=== PATIENT | male | born 1985 | race Caucasian/White ===

== ENCOUNTER 2018-03-20 19:35 | Emergency (ER) | payer MEDICARE ==
[~2018-03-20] VITALS: Ht 172.7 cm; Wt 90.7 kg
[~2018-03-20 19:35] MED LIST: ALBU90OI INH; BENZ100A PO; PRODEXEL PO; Vitamin C100 M1; Zithromax250 MG PO
[2018-03-20 20:57] LABS: BASOPHILS ABSOLUTE AUTO 0.04 K/mm3 (0.00-0.23); BASOPHILS PERCENT AUTO 1 % (0-2); EOSINOPHILS ABSOLUTE AUTO 0.54 K/mm3 (0.00-0.68); EOSINOPHILS PERCENT AUTO 8 % (0-6); Hematocrit 47.5 % (37.0-53.0); Hemoglobin 16.4 g/dL (13.5-17.5); IMMATURE GRAN ABSOLUTE AUTO 0.02 K/mm3 (0.00-0.10); IMMATURE GRAN PERCENT AUTO 0 % (0-1); LYMPHOCYTES PERCENT AUTO 31 % (21-46); MONOCYTES ABSOLUTE AUTO 0.57 K/mm3 (0.16-1.47); MONOCYTES PERCENT AUTO 8 % (4-13); Mean Corpuscular HGB 28.5 pg (26.0-34.0); Mean Corpuscular HGB Conc 34.5 g/dL (31.5-36.5); Mean Corpuscular Volume 83 fL (80-100); Mean Platelet Volume 9.2 fL (9.1-12.4); NEUTROPHILS PERCENT AUTO 53 % (41-73); Platelet Count 235 K/mm3 (150-400); RDW Standard Deviation 36.3 fL (35.1-46.3); Red Blood Cell Count 5.76 M/mm3 (4.30-5.90); White Blood Cell Count 7.17 K/mm3 (4.00-11.30)
[2018-03-20 21:16] LABS: Alanine Aminotransfer (ALT/SGP 107 U/L (12-78); Albumin, Blood 4.2 g/dL (3.4-5.0); Albumin/Globulin Ratio 1.1 (0.8-1.8); Alk Phos 82 U/L (50-136); Anion Gap 8 mmol/L (6-16); Aspartate Aminotrans (AST/SGOT 57 U/L (12-37); Bilirubin, Total 0.8 mg/dL (0.1-1.0); Blood Urea Nitrogen 13 mg/dL (8-24); Bun/Creatinine Ratio 12.1 (12.0-20.0); CO2, Blood 25 mmol/L (21-32); Calcium, Blood 9.5 mg/dL (8.5-10.1); Chloride, Blood 109 mmol/L (98-108); Creatinine, Blood 1.07 mg/dL (0.60-1.20); Globulin, Blood 3.8 g/dL (2.2-4.0); Glomerular Filtration Rate >60 (60-); Glucose, Blood 91 mg/dL (70-99); Potassium, Blood 3.9 mmol/L (3.5-5.5); Sodium, Blood 142 mmol/L (136-145)
[2018-03-20] MEDS ORDERED: IBUP400 PO (21:49)
== END 2018-03-20 22:04 | disposition home or self-care (01) ==
LOC: ER 19:35
PROVIDERS: Emergency Medicine
DX: R10.31 Right lower quadrant pain (principal); R10.32 Left lower quadrant pain; R07.81 Pleurodynia
CPT/HCPCS: 36415; 74176; 80053; 81000; 85025

== ENCOUNTER 2018-12-23 12:58 | Emergency (ER) | payer MEDICARE ==
[~2018-12-23] VITALS: Ht 175.3 cm; Wt 90.7 kg
[~2018-12-23 12:58] MED LIST changes: +IBUP400 PO
[2018-12-23] MEDS ORDERED: IBUP400 PO (13:30)
[2018-12-23] MEDS ORDERED: Aerochamber1 EACH INH (14:14)
[2018-12-23] MEDS ORDERED: ALBU90OI INH (14:14)
== END 2018-12-23 14:18 | disposition home or self-care (01) ==
LOC: ER 12:58
DX: J06.9 Acute upper respiratory infection, unspecified (principal)
CPT/HCPCS: 71046; 94640; 99283-25

== ENCOUNTER 2019-06-12 01:02 | Emergency (ER) | payer MEDICARE ==
[~2019-06-12] VITALS: Ht 172.7 cm; Wt 90.7 kg
[~2019-06-12 01:02] MED LIST changes: +Aerochamber1 EACH INH
== END 2019-06-12 01:59 | disposition home or self-care (01) ==
LOC: ER 01:02
DX: K59.00 Constipation, unspecified (principal); R14.0 Abdominal distension (gaseous)
CPT/HCPCS: 74019; 99284-25

== ENCOUNTER 2020-01-25 17:51 | Emergency (ER) | payer MEDICARE ==
[~2020-01-25] VITALS: Ht 172.7 cm; Wt 90.7 kg
[~2020-01-25 17:51] MED LIST changes: +GUAI600T33 PO
== END 2020-01-25 19:10 | disposition home or self-care (01) ==
LOC: ER 17:51
DX: R10.32 Left lower quadrant pain (principal); F32.9 Major depressive disorder, single episode, unspecified
CPT/HCPCS: 74018; 99283-25

== ENCOUNTER 2020-01-26 19:33 | Inpatient (IN) | payer MEDICARE ==
[~2020-01-26] VITALS: Ht 172.7 cm; Wt 90.7 kg
[2020-01-26 21:39] LABS: BASOPHILS ABSOLUTE AUTO 0.03 K/mm3 (0.00-0.23); BASOPHILS PERCENT AUTO 0 % (0-2); EOSINOPHILS ABSOLUTE AUTO 0.07 K/mm3 (0.00-0.68); EOSINOPHILS PERCENT AUTO 1 % (0-6); Hematocrit 47.9 % (37.0-53.0); Hemoglobin 15.4 g/dL (13.5-17.5); IMMATURE GRAN ABSOLUTE AUTO 0.02 K/mm3 (0.00-0.10); IMMATURE GRAN PERCENT AUTO 0 % (0-1); LYMPHOCYTES ABSOLUTE AUTO 1.62 K/mm3 (0.84-5.20); LYMPHOCYTES PERCENT AUTO 16 % (21-46); MONOCYTES ABSOLUTE AUTO 0.81 K/mm3 (0.16-1.47); MONOCYTES PERCENT AUTO 8 % (4-13); Mean Corpuscular HGB 25.4 pg (26.0-34.0); Mean Corpuscular HGB Conc 32.2 g/dL (31.5-36.5); Mean Corpuscular Volume 79 fL (80-100); Mean Platelet Volume 9.4 fL (9.1-12.4); NEUTROPHILS ABSOLUTE AUTO 7.74 K/mm3 (1.96-9.15); NEUTROPHILS PERCENT AUTO 75 % (41-73); Platelet Count 319 K/mm3 (150-400); RDW Coefficient Variation 14.5 % (11.7-14.2); RDW Standard Deviation 41.4 fL (35.1-46.3); Red Blood Cell Count 6.07 M/mm3 (4.30-5.90); White Blood Cell Count 10.29 K/mm3 (4.00-11.30)
[2020-01-26 21:57] LABS: Alanine Aminotransfer (ALT/SGP 43 U/L (12-78); Albumin, Blood 3.8 g/dL (3.4-5.0); Albumin/Globulin Ratio 0.9 (0.8-1.8); Alk Phos 87 U/L (50-136); Anion Gap 5 mmol/L (6-16); Aspartate Aminotrans (AST/SGOT 29 U/L (12-37); Bilirubin, Total 1.4 mg/dL (0.1-1.0); Blood Urea Nitrogen 10 mg/dL (8-24); Bun/Creatinine Ratio 8.7 (12.0-20.0); CO2, Blood 28 mmol/L (21-32); Calcium, Blood 9.5 mg/dL (8.5-10.1); Chloride, Blood 106 mmol/L (98-108); Creatinine, Blood 1.15 mg/dL (0.60-1.20); Globulin, Blood 4.2 g/dL (2.2-4.0); Glomerular Filtration Rate >60 (60-); Glucose, Blood 99 mg/dL (70-99); Magnesium, Blood 2.2 mg/dL (1.6-2.4); Sodium, Blood 139 mmol/L (136-145)
--- NOTE | 2020-01-27 04:28 | NUR ---
SHIFT SUMMARY PT WAS NEW ER ADMIT THIS SHIFT (0040), MEDICATED FOR PAIN X1, DENIES NAUSEA, PT SLEPT T/O NIGHT & AT THIS TIME, CALL LIGHT IN REACH, WILL CONT TO MONITOR UNTIL REPORT GIVEN TO DAY RN.
[2020-01-27 04:45] LABS: BASOPHILS ABSOLUTE AUTO 0.03 K/mm3 (0.00-0.23); BASOPHILS PERCENT AUTO 0 % (0-2); EOSINOPHILS ABSOLUTE AUTO 0.04 K/mm3 (0.00-0.68); EOSINOPHILS PERCENT AUTO 0 % (0-6); Hematocrit 42.9 % (37.0-53.0); Hemoglobin 13.8 g/dL (13.5-17.5); IMMATURE GRAN ABSOLUTE AUTO 0.03 K/mm3 (0.00-0.10); IMMATURE GRAN PERCENT AUTO 0 % (0-1); LYMPHOCYTES ABSOLUTE AUTO 1.59 K/mm3 (0.84-5.20); LYMPHOCYTES PERCENT AUTO 17 % (21-46); MONOCYTES ABSOLUTE AUTO 0.79 K/mm3 (0.16-1.47); MONOCYTES PERCENT AUTO 8 % (4-13); Mean Corpuscular HGB 25.2 pg (26.0-34.0); Mean Corpuscular HGB Conc 32.2 g/dL (31.5-36.5); Mean Corpuscular Volume 78 fL (80-100); Mean Platelet Volume 9.2 fL (9.1-12.4); NEUTROPHILS ABSOLUTE AUTO 7.07 K/mm3 (1.96-9.15); NEUTROPHILS PERCENT AUTO 74 % (41-73); Platelet Count 276 K/mm3 (150-400); RDW Coefficient Variation 14.3 % (11.7-14.2); RDW Standard Deviation 41.2 fL (35.1-46.3); Red Blood Cell Count 5.47 M/mm3 (4.30-5.90); White Blood Cell Count 9.55 K/mm3 (4.00-11.30)
[2020-01-27 05:08] LABS: Alanine Aminotransfer (ALT/SGP 34 U/L (12-78); Albumin, Blood 3.2 g/dL (3.4-5.0); Albumin/Globulin Ratio 0.9 (0.8-1.8); Alk Phos 72 U/L (50-136); Anion Gap 6 mmol/L (6-16); Aspartate Aminotrans (AST/SGOT 20 U/L (12-37); Bilirubin, Total 1.1 mg/dL (0.1-1.0); Blood Urea Nitrogen 11 mg/dL (8-24); Bun/Creatinine Ratio 11.9 (12.0-20.0); CO2, Blood 24 mmol/L (21-32); Calcium, Blood 8.3 mg/dL (8.5-10.1); Chloride, Blood 108 mmol/L (98-108); Creatinine, Blood 0.92 mg/dL (0.60-1.20); Globulin, Blood 3.5 g/dL (2.2-4.0); Glomerular Filtration Rate >60 (60-); Glucose, Blood 128 mg/dL (70-99); Potassium, Blood 3.6 mmol/L (3.5-5.5); Sodium, Blood 138 mmol/L (136-145); Total Protein, Blood 6.7 g/dL (6.4-8.2)
--- NOTE | 2020-01-27 14:13 | NUR ---
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 3-LEAD EKG REVIEWED WITH PHYSICIAN PRIOR TO START OF PROCEDURE. O2 VIA N/C INTACT THROUGHOUT SEDATION/PROCEDURE. MONITOR INTACT WITH CONTINUOUS PULSE OXIMETRY AND INTERMITTENT BP. PATIENT DETERMINED TO BE ASA APPROPRIATE FOR PROPOFOL SEDATION PRIOR TO START OF PROCEDURE BY DR. GARCIA.
--- NOTE | 2020-01-27 15:47 | NUR ---
SHIFT SUMMARY PT IS A/O X 4 AND IND IN HIS ROOM. HE REPORTS OCCASIONAL ABDOMINAL PAIN. TYLENOL WAS GIVEN ORDERED DR GARCIA WANTED TO HOLD OFF ON NARCS FOR POSSIBLE CONSTIPATION ISSUES. IV FLUIDS HAVE BEEN RUNNING ORDERED WITH NO ISSUE. DR GARCIA TOOK THE PT FOR A COLONSCOPY THIS AFTERNOON AND PER REPORT FROM THE DAY SURGERY RN THEY WERE UNABLE TO MAKE ANY REPAIRS. DR MALHOTRA JUST SAW THE PT AT THE BEDSIDE TO DISCUSS THE POSSIBILITY OF SURGERY TO REMOVE THE CAUSE OF THE ABDOMINAL PAIN AND THE PT STATED THAT HE WOULD LIKE TO GO AHEAD WITH THE SURGERY. DR MALHOTRA STATED THAT HE WOULD MOST LIKELY OPERATE THIS TEREZA. PT IS RESTING IN BED AND REMAINS NPO. HE CAN MAKE HIS NEEDS KNOWN AND CALLS FOR HELP WHEN NEEDED. CALL LIGHT IN REACH.
--- NOTE | 2020-01-27 22:05 | NUR ---
PT TO ICU 16 VIA BED FOR POST OP RECOVERY, PT SLIGHTLY COMBATIVE UPON ARRIVAL, ONCE MORE ALERT FOLLOWS COMMANDS WELL PT C/O PAIN 8 IN ABDOMEN MEDICATED WITH FENTANYL VSS WILL CONTINUE TO MONITOR
--- NOTE | 2020-01-27 22:10 | NUR ---
PT WITH CANNON CATHETER INTACT DRAINING CLEAR YELLOW URINE ABDOMINAL ALEXA DRESSING WITH SEVERAL SMALL SPOTS OF BLOOD OSTEOMY DRAINING BLOODY BOWEL CONTENTS
--- NOTE | 2020-01-27 23:55 | NUR ---
Patient arrived from the ICU post recovery. patient awake and complaining of mild discomfort related to the ng tube. lungs are clear, afebrile. ALEXA dressing to midline incision, dressing is compressed with the pump attached. Dressing with spots of blood over the dressing. colostomy with blood drainage from the lt side, reseated the two seals and the drainage is solved. scant amount of blood drainage into collection bag. hayes cath with clear yellow drainage in the bag, and dried blood around the meatus. SCDs on. mouth is moist but patient C/O pain in his throat and dry spots. NG with green drainage, call to MD to clarify NG clamped vs LIS. call light in reach, will continue to monitor.
--- NOTE | 2020-01-28 04:56 | NUR ---
Shift Summary Patient comtinues to have issues with the NG tube at the back of his throat. using oral swabs to moisten mouth T/O shift. patient has been medicated with fentanyl with good results. Temp at 0400 99.3, instructed patient to do deep breathing exercises. No other acute changes. will continue to monitor, call light in reach bed in low position.
[2020-01-28 10:31] LABS: BASOPHILS ABSOLUTE AUTO 0.02 K/mm3 (0.00-0.23); BASOPHILS PERCENT AUTO 0 % (0-2); EOSINOPHILS PERCENT AUTO 0 % (0-6); Hematocrit 43.2 % (37.0-53.0); IMMATURE GRAN ABSOLUTE AUTO 0.03 K/mm3 (0.00-0.10); IMMATURE GRAN PERCENT AUTO 0 % (0-1); LYMPHOCYTES ABSOLUTE AUTO 1.04 K/mm3 (0.84-5.20); LYMPHOCYTES PERCENT AUTO 9 % (21-46); MONOCYTES ABSOLUTE AUTO 1.19 K/mm3 (0.16-1.47); MONOCYTES PERCENT AUTO 11 % (4-13); Mean Corpuscular HGB 25.4 pg (26.0-34.0); Mean Corpuscular HGB Conc 32.4 g/dL (31.5-36.5); Mean Corpuscular Volume 78 fL (80-100); Mean Platelet Volume 9.4 fL (9.1-12.4); NEUTROPHILS ABSOLUTE AUTO 8.75 K/mm3 (1.96-9.15); NEUTROPHILS PERCENT AUTO 79 % (41-73); Platelet Count 299 K/mm3 (150-400); RDW Coefficient Variation 14.7 % (11.7-14.2); RDW Standard Deviation 41.4 fL (35.1-46.3); Red Blood Cell Count 5.52 M/mm3 (4.30-5.90); White Blood Cell Count 11.03 K/mm3 (4.00-11.30)
--- NOTE | 2020-01-28 17:43 | NUR ---
SHIFT SUMMARY PT A&OX4, VSS, POD1 EXP LAP HEMICOLECTOMY WITH MIDLINE ALEXA AND OSTOMY W/SMALL AMT RED OUTPUT, NO FLATUS. PAIN MANAGED WITH 5 MG NORCO. AMBULATING HALLWAY WITH MIN ASSIST; UP TO CHAIR. CANNON PATENT & DRAINING, STAT LOCK ON LLE, OFF FLOOR. JUDAH CL DIET; DENIES N&V, REP BELCHING. WILL REPORT TO ONCOMING NOC RN.
[2020-01-29 04:32] LABS: Hematocrit 46.3 % (37.0-53.0); Hemoglobin 14.9 g/dL (13.5-17.5); Mean Corpuscular HGB 25.3 pg (26.0-34.0); Mean Corpuscular HGB Conc 32.2 g/dL (31.5-36.5); Mean Corpuscular Volume 79 fL (80-100); Mean Platelet Volume 9.6 fL (9.1-12.4); Platelet Count 285 K/mm3 (150-400); RDW Coefficient Variation 14.9 % (11.7-14.2); RDW Standard Deviation 42.3 fL (35.1-46.3); Red Blood Cell Count 5.89 M/mm3 (4.30-5.90); White Blood Cell Count 12.78 K/mm3 (4.00-11.30)
[2020-01-29 04:48] LABS: Albumin, Blood 2.6 g/dL (3.4-5.0); Anion Gap 6 mmol/L (6-16); Blood Urea Nitrogen 8 mg/dL (8-24); Bun/Creatinine Ratio 8.1 (12.0-20.0); CO2, Blood 26 mmol/L (21-32); Calcium, Blood 8.4 mg/dL (8.5-10.1); Chloride, Blood 103 mmol/L (98-108); Creatinine, Blood 0.99 mg/dL (0.60-1.20); Glomerular Filtration Rate >60 (60-); Glucose, Blood 121 mg/dL (70-99); Phosphorus, Blood 2.4 mg/dL (2.5-4.9); Potassium, Blood 4.1 mmol/L (3.5-5.5); Sodium, Blood 135 mmol/L (136-145)
--- NOTE | 2020-01-29 05:54 | NUR ---
SHIFT SUMMARY POD#2 KENA COLECTOMY WITH OSTOMY. AAOX4. DISCOMFORT DECREASED WITH 1 NORCO Q4H + 25mcg FENTANYL X3 THIS SHIFT. NAUSEA CONTROLLED WITH ZOFRAN, NO EMESIS. IVF PER ORDERS. ABD DISTENDED + HYPOACTIVE BTs. SCANT SS DRAINAGE IN OSTOMY BAG, NO INCREASE THIS SHIFT. ENCOURAGE PT TO REPOSITION + AMBULATE TODAY TOLERATED. NO ACUTE CHANGE THIS SHIFT. PT RESTED MINIMALLY T/O NIGHT, CURRENTLY SITTING UP IN BED WITH EYES CLOSED. PT USES CALL LIGHT FOR ASSISTANCE.
--- NOTE | 2020-01-29 09:16 | NUR ---
HR DISCUSSED HR W/DR BAZAN.
--- NOTE | 2020-01-29 10:33 | NUR ---
RASH PT HAS RED SPLOTCHY RASH TO BLE.
--- NOTE | 2020-01-29 11:29 | NUR ---
DR BAZAN IN TO SEE PT REPORTED RASH TO , SHE ASSESSED. PT AMBULATED IN DAUGHERTY. ABDOMEN CONTINUES TO BE DISTENDED, BT HYPO. HELD BREAKFAST TRAY, WILL HOLD LUNCH TRAY.
--- NOTE | 2020-01-29 13:16 | NUR ---
HR PT'S HR 144. PT REPORTED EXPERIENCING VERY LITTLE ABDOMINAL PAIN AT THIS TIME. NOTIFIED DR BAZAN. ORDERS OBTAINED.
--- NOTE | 2020-01-29 16:30 | NUR ---
HR PT'S HR 133. DISCUSSED W/DR BAZAN. ORDERS OBTAINED.
[2020-01-29 16:40] LABS: BASOPHILS ABSOLUTE AUTO 0.04 K/mm3 (0.00-0.23); BASOPHILS PERCENT AUTO 0 % (0-2); EOSINOPHILS ABSOLUTE AUTO 0.08 K/mm3 (0.00-0.68); EOSINOPHILS PERCENT AUTO 1 % (0-6); Hematocrit 47.5 % (37.0-53.0); Hemoglobin 15.4 g/dL (13.5-17.5); IMMATURE GRAN ABSOLUTE AUTO 0.07 K/mm3 (0.00-0.10); IMMATURE GRAN PERCENT AUTO 1 % (0-1); LYMPHOCYTES ABSOLUTE AUTO 1.53 K/mm3 (0.84-5.20); LYMPHOCYTES PERCENT AUTO 12 % (21-46); MONOCYTES ABSOLUTE AUTO 1.57 K/mm3 (0.16-1.47); MONOCYTES PERCENT AUTO 12 % (4-13); Mean Corpuscular HGB 25.2 pg (26.0-34.0); Mean Corpuscular HGB Conc 32.4 g/dL (31.5-36.5); Mean Corpuscular Volume 78 fL (80-100); Mean Platelet Volume 9.3 fL (9.1-12.4); NEUTROPHILS ABSOLUTE AUTO 9.65 K/mm3 (1.96-9.15); NEUTROPHILS PERCENT AUTO 75 % (41-73); Platelet Count 326 K/mm3 (150-400); RDW Coefficient Variation 14.9 % (11.7-14.2); RDW Standard Deviation 41.4 fL (35.1-46.3); Red Blood Cell Count 6.11 M/mm3 (4.30-5.90); White Blood Cell Count 12.94 K/mm3 (4.00-11.30)
--- NOTE | 2020-01-29 18:05 | NUR ---
SUMMARY PT HAS BEEN TACHY T/O SHIFT. DISCUSSED W/DR BAZAN T/O DAY; ORDERS OBTAINED. TELE SHOWS SINUS TACH. PT HAD NO MEASURABLE OUTPUT OR FLATUS FROM OSTOMY. HELD MEAL TRAYS. SIPPING WATER SLOWLY. MEDICATED PER ORDERS FOR NAUSEA. MEDICATED ONCE THIS EVENING FOR RLQ PAIN. PT SAT UP IN CHAIR MOST OF SHIFT AND AMBULATED THREE TIMES W/STAFF. KASSANDRA LOPEZ DC'D THIS AFTERNOON; PT HAS NOT VOIDED YET SINCE DC. CALL LIGHT IN REACH.
--- NOTE | 2020-01-29 18:34 | NUR ---
assisted back to bed.
--- NOTE | 2020-01-30 03:30 | NUR ---
VTACH: PER TELE MONITOR PT HAD A 4 BEAT RUN OF VTACH. PT REP COUGHING AT TIME OF TELE NOTIFICATION. PT ASYMPTOMATIC, VITALS TAKEN, WNL. WILL CONT TO MONITOR AND NOTIFY MD FOR ADDITIONAL CHANGED/CONCERNS.
[2020-01-30 04:46] LABS: BASOPHILS ABSOLUTE AUTO 0.05 K/mm3 (0.00-0.23); BASOPHILS PERCENT AUTO 0 % (0-2); EOSINOPHILS ABSOLUTE AUTO 0.18 K/mm3 (0.00-0.68); EOSINOPHILS PERCENT AUTO 2 % (0-6); Hematocrit 45.1 % (37.0-53.0); Hemoglobin 14.6 g/dL (13.5-17.5); IMMATURE GRAN ABSOLUTE AUTO 0.07 K/mm3 (0.00-0.10); IMMATURE GRAN PERCENT AUTO 1 % (0-1); LYMPHOCYTES ABSOLUTE AUTO 1.31 K/mm3 (0.84-5.20); LYMPHOCYTES PERCENT AUTO 12 % (21-46); MONOCYTES ABSOLUTE AUTO 1.16 K/mm3 (0.16-1.47); MONOCYTES PERCENT AUTO 10 % (4-13); Mean Corpuscular HGB 25.4 pg (26.0-34.0); Mean Corpuscular HGB Conc 32.4 g/dL (31.5-36.5); Mean Corpuscular Volume 78 fL (80-100); Mean Platelet Volume 9.6 fL (9.1-12.4); NEUTROPHILS ABSOLUTE AUTO 8.57 K/mm3 (1.96-9.15); NEUTROPHILS PERCENT AUTO 76 % (41-73); Platelet Count 315 K/mm3 (150-400); RDW Coefficient Variation 15.2 % (11.7-14.2); Red Blood Cell Count 5.75 M/mm3 (4.30-5.90); White Blood Cell Count 11.34 K/mm3 (4.00-11.30)
[2020-01-30 05:01] LABS: Albumin, Blood 2.3 g/dL (3.4-5.0); Anion Gap 7 mmol/L (6-16); Blood Urea Nitrogen 11 mg/dL (8-24); Bun/Creatinine Ratio 11.3 (12.0-20.0); CO2, Blood 24 mmol/L (21-32); Calcium, Blood 8.1 mg/dL (8.5-10.1); Chloride, Blood 104 mmol/L (98-108); Creatinine, Blood 0.98 mg/dL (0.60-1.20); Glomerular Filtration Rate >60 (60-); Glucose, Blood 114 mg/dL (70-99); Phosphorus, Blood 2.5 mg/dL (2.5-4.9); Potassium, Blood 4.2 mmol/L (3.5-5.5); Sodium, Blood 135 mmol/L (136-145)
--- NOTE | 2020-01-30 06:35 | NUR ---
POD 3 S/P KENA COLECTOMY+OSTOMY. HR CONT TO RUN 120-130'S, PT DENIED CP/PRESSURE. PT DID HAVE A 4 BEAT RUN OF VTACH PER TELE; PT ASYMPTOMATIC DURING EVENT. OTHER VSS. PT DENIED NEED FOR PAIN MEDS. REP REFULX IMPROVED AFTER GI COCKTAIL. PT HAD NO C/O N/V. PO INAKE MINIMAL, NO OSTOMY OUTPUT. PT VOIDING URINE DARK PAUL URINE, NO BLOOD NOTED; PT DENIED PAIN W/VOID. DRESSING CDI, SEAL AND SX MAINTAINED. PT UP OOB W/SBA, JUDAH WELL. PT USING CALL LIGHT FOR ASSISTANCE, WILL CONT TO MONITOR UNTIL REP GIVEN TO ONCOMING RN.
--- NOTE | 2020-01-30 10:38 | NUR ---
DR BAZAN IN TO SEE PT.
--- NOTE | 2020-01-30 11:45 | NUR ---
DISCUSSED HR W/DR BAZAN WHEN ROUNDED. ORDERS OBTAINED.
--- NOTE | 2020-01-30 13:15 | NUR ---
EMESIS AND FLATUS PT HAD 300 ML DARK GREEN EMESIS. MEDICATED PER ORDERS FOR N/V. ZOFRAN WAS BEING ADMINISTERED, PT'S OSTOMY PASSED FLATUS. PT RESTING IN BED. CALL LIGHT IN REACH.
--- NOTE | 2020-01-30 17:22 | NUR ---
SUMMARY PT HAD TWO BOUTS OF EMESIS THIS SHIFT. OSTOMY IS PASSING SMALL AMOUNT OF FLATUS. REPORTED EMESIS TO DR FERNANDEZ. ORDERS OBTAINED TO PLACE NG IF PT HAS ANOTHER EPISODE OF EMESIS. MEDICATED TWICE DURING SHIFT FOR PAIN AND NAUSEA. PT AMBULATED IN DAUGHERTY TWICE AND SAT UP IN CHAIR OFF AND ON T/O SHIFT. CALL LIGHT IN REACH.
--- NOTE | 2020-01-30 19:30 | NUR ---
NG TUBE INSERTED AT THIS TIME WITH 800CC OF GREEN DRG OUT.
[2020-01-31 04:42] LABS: BASOPHILS ABSOLUTE AUTO 0.04 K/mm3 (0.00-0.23); BASOPHILS PERCENT AUTO 0 % (0-2); EOSINOPHILS ABSOLUTE AUTO 0.17 K/mm3 (0.00-0.68); EOSINOPHILS PERCENT AUTO 2 % (0-6); Hematocrit 42.1 % (37.0-53.0); Hemoglobin 13.3 g/dL (13.5-17.5); IMMATURE GRAN ABSOLUTE AUTO 0.07 K/mm3 (0.00-0.10); IMMATURE GRAN PERCENT AUTO 1 % (0-1); LYMPHOCYTES ABSOLUTE AUTO 1.41 K/mm3 (0.84-5.20); LYMPHOCYTES PERCENT AUTO 14 % (21-46); MONOCYTES ABSOLUTE AUTO 1.01 K/mm3 (0.16-1.47); MONOCYTES PERCENT AUTO 10 % (4-13); Mean Corpuscular HGB Conc 31.6 g/dL (31.5-36.5); Mean Corpuscular Volume 79 fL (80-100); Mean Platelet Volume 9.3 fL (9.1-12.4); NEUTROPHILS ABSOLUTE AUTO 7.16 K/mm3 (1.96-9.15); NEUTROPHILS PERCENT AUTO 73 % (41-73); Platelet Count 307 K/mm3 (150-400); Red Blood Cell Count 5.32 M/mm3 (4.30-5.90); White Blood Cell Count 9.86 K/mm3 (4.00-11.30)
[2020-01-31 05:10] LABS: Albumin, Blood 2.4 g/dL (3.4-5.0); Anion Gap 8 mmol/L (6-16); Blood Urea Nitrogen 16 mg/dL (8-24); Bun/Creatinine Ratio 16.2 (12.0-20.0); CO2, Blood 25 mmol/L (21-32); Chloride, Blood 105 mmol/L (98-108); Creatinine, Blood 0.99 mg/dL (0.60-1.20); Glomerular Filtration Rate >60 (60-); Glucose, Blood 95 mg/dL (70-99); Phosphorus, Blood 2.8 mg/dL (2.5-4.9); Potassium, Blood 3.7 mmol/L (3.5-5.5); Sodium, Blood 138 mmol/L (136-145)
--- NOTE | 2020-01-31 16:51 | NUR ---
SHIFT SUMMARY NO ACUTE CHANGES TODAY. NGT WITH LIGHT GREEN DRAINAGE OUT ON LIS. PT ONLY REPORTS DISCOMFORT R/T TO NGT ON THROAT. OSTOMY WITH SCANT SS DRAINAGE. STOMA BEEFY RED. ALEXA WITH OLD SHADOWING PRESENT. IVF + ABX PER ORDERS. CALL LIGHT WITHIN REACH.
--- NOTE | 2020-02-01 04:25 | NUR ---
SHIFT SUMMARY POD#6. AAOX4/ANXIOUS AT TIMES. DISCOMFORT AT TOLERABLE LEVEL T/O NIGHT. NO NAUSEA/EMESIS. ABD INCISION WITH ALEXA SCANT DRY SS DRAINAGE ALONG INCISION, NO ACUTE CHANGE THIS SHIFT. OSTOMY WITH INCREASING AMOUNT OF FORMED BROWN STOOL, 800cc THIS SHIFT. NGT WITH 250cc OUT OF LIGHT GREEN. PT REPOSITIONS WELL IN BED WITH ENCOURAGEMENT. IVF + ABX PER ORDERS. PT CURRENTLY WATCHING TV IN BED, DENIES FURTHER NEEDS, WITH CALL LIGHT IN REACH.
--- NOTE | 2020-02-01 10:39 | NUR ---
TELE BOX RETURNED TO PCU. PROVIDED OSTOMY EDUCATION ON EMPTYING APPLIANCE. PLANNING TO HAVE PT EMPTY OSTOMY NEXT.
--- NOTE | 2020-02-01 16:31 | NUR ---
SHIFT SUMMARY PT HAS DONE WELL TODAY. NGT DC'D AROUND 1230 AND PT TOLERATING WELL. OSTOMY PUTTING OUT SMALL AMOUNTS OF GAS + SOFT UNFORMED BROWN LIQ STOOL. EXTENSIVE OSTOMY EDUCATION PROVIDED TO PT AND PT PARTICIPATED IN OSTOMY APPLIANCE CHANGE. ALEXA DRESSING CHANGED TODAY. PT INDEPENDENTLY AMBULATING HALLWAYS. CLEAR LIQ TO START FOR DINNER. PT DENIES PAIN. USES CALL LIGHT APPROPRIATELY.
--- NOTE | 2020-02-02 05:16 | NUR ---
SHIFT SUMMARY POD#7 COLECTOMY WITH OSTOMY. AAOX4/AUTISM. PT REPORT DISCOMFORT AT TOLERABLE LEVEL T/O NIGHT. NO NAUSEA/EMESIS. ABD INCISOIN WITH ALEXA C/D/I. OSTOMY WITH NEW APPLIANCE WITH MODERATE AMOUNT OF SOFT BROWN STOOL EMPTIED THIS SHIFT. PT UP MOVING INDEPENDENTLY YESTARDAY EVENING, TOLERATED WELL. PT RESTED WELL THIS SHIFT. NO ACUTE CHANGES OVER NIGHT. CALL LIGHT IN REACH AT THIS TIME.
--- NOTE | 2020-02-02 10:08 | NUR ---
DR BAZAN HERE TO SEE PT. DISCUSSED ADVANCING DIET.
--- NOTE | 2020-02-02 12:39 | NUR ---
PT REPORTED TO SNEEZE AFTER PEEING AND HAD BLEEDING OUT OF PENIS WHICH STOPPED. PT DENIES DIZZINESS OR LIGHTHEADNESS. PT A/O. DENIES PAIN. REPORTS THAT URINE LOOKED NORMAL.
--- NOTE | 2020-02-02 12:46 | NUR ---
DR CARDENAS IN [facility], NOTIFIED OF PT'S RECENT BLEEDING. WILL CONT MONITOR. NO NEW ORDERS.
--- NOTE | 2020-02-02 12:53 | NUR ---
PT REPORTS STARTING TO VOID IN SHOWER WHICH HE SAW A LITTLE BIT OF BLOOD COME OUT, HE STATES GRABBING THE URINAL AND VOIDING IN IT. URINE IN URINAL APPEARS CLEAR YELLOW URINE. WILL CONT TO MONITOR.
--- NOTE | 2020-02-02 14:57 | NUR ---
DR CARDENAS HERE EARLIER TODAY, DISCUSSED ALEXA DRESSING COMING OFF, TOOK OFF REST OF WAY AND PLACED MEPILEX DRESSING TO ABD.
--- NOTE | 2020-02-02 16:07 | NUR ---
SHIFT SUMMARY PT TOLERATED DIET FOR LUNCH. PT BEEN ASSISTED WITH ADL'S PRN. PT HAD BLEEDING OUT OF PENIS WHICH STOPPED ON OWN AND APPEARS TO HAVE RESOLVED, DISCUSSED WITH DR CARDENAS. PT HAS VOIDED NOW X2 WITHOUT DIFFICULTY. PT BEEN UP AND AMBULATING IN HALLWAYS MULT TIMES. CONT TO EDUCATED ON OSTOMY AND DRESSINGS.
--- NOTE | 2020-02-03 04:00 | NUR ---
VOIDING PT PASSING SMALL BLOOD CLOTS THROUGH PENIS AND HAVING PINK COLORED URINE. DENIES PAIN OR DISCOMFORT. BLADDER SCAN OF 240. DAYSHIFT REPORTED SURGEON AWARE OF CHANGE. NOTIFIED ADOLFO [place] - NO NEW ORDERS OBTAINED AT THIS TIME. WILL CONT TO MONITOR.
--- NOTE | 2020-02-03 06:36 | NUR ---
SHIFT SUMMARY PT A/OX4 WITH VSS. ABD DRESSING C.D.I WITH NO DRAINAGE NOTED. OSTOMY PRODUCING SMALL AMOUNT OF LIQUID BROWN STOOL, STOMA BEEFY RED IN COLOR AND ROUND. APPLIANCE APPEARS C.D.I. ABX INFUSING PER ORDERS. TOLERATING FL, DENIES N/V. AMBULATING IND IN HALLWAYS. BLOOD IN URINE HAS DECREASED WITH SMALL AMOUNT OF BLOOD VISIBLE IN ATTENDS, NO CLOTS NOTED. PT IS CURRENTLY RESTING IN BED WITH CALL LIGHT IN REACH. WILL CONT TO MONITOR AND GIVE REPORT TO ONCOMING RN.
--- NOTE | 2020-02-03 11:12 | NUR ---
DR. BAZAN MADE AWARE THAT LOVENOX HELD THIS AM DUE TO PT BLEEDING AT PENIS.
[2020-02-03] MEDS ORDERED: CEPACOL SORE T1 EACH MM (11:28)
[2020-02-03] MEDS ORDERED: ACET325 PO (11:28)
[2020-02-03] MEDS ORDERED: HYDR1TAB94 PO (11:31)
--- NOTE | 2020-02-03 14:18 | NUR ---
BLEEDING: PT GETTING READY FOR DISCHARGE, GETTING DRESSED AND PT REPORTS VOIDING WHEN BRIGHT RED BLOOD STARTED COMING FROM PENIS TIP. AT THIS POINT THIS RN CAME INTO ROOM. THERE WAS A PUDDLE OF BLOOD ON THE FLOOR, MODERATE AMOUNT BRIGHT RED BLOOD PRESENT. PT HOLDING PRESSURE ON PENIS WITH TOLIET PAPER. PT GIVEN GAUZE TO HOLD PRESSURE. PT HELD PRESSUE FOR ABOUT 3-5MIN AND BLEEDING SLOWED. DR. BAZAN MADE AWARE OF THIS. PT VSS. PER DR. BAZAN, WILL HOLD OFF ON DISCHARGE AT THIS TIME UNTIL PT VOIDS AGAIN AND SEE IF BLEEDING HAS RESOLVED. WILL CTM PT STATUS.
--- NOTE | 2020-02-03 15:50 | NUR ---
PT ABLE TO VOID AT THIS TIME WITHOUT BLEED FROM PENIS. DR. BAZAN MADE AWARE AND CLEARED PT FOR DISCHARGE.
--- NOTE | 2020-02-03 17:19 | NUR ---
DISCHARGE: PACKET PRINTED AND PT EDUCATED. SENT WITH EXTRA OSTOMY SUPPLIES AND SURGICAL BANDAGES. PT VERBALIZED UNDERSTANDING OF HOME CARE AND FOLLOW UP APPOINTMENTS. ALSO SPOKE WITH PT BROTHER CONCERNING THESE THINGS WELL THE PT'S BLEEDING. PT AND PT BROTHER UNDERSTAND TO COME BACK TO THE ER IF PT'S PENIS CONTINUES TO BLEED. PT LEFT UNIT VIA WHEELCHAIR WITH THIS RN AT ABOUT 1710.
[2020-02-06 13:01] LABS: Performing Lab SYMBIODX; Test Name MSH6 MSH2
== END 2020-02-03 17:10 | disposition home or self-care (01) | DRG 330 ==
LOC: ER 19:33 → SURS 23:01 → MEDS 23:01 → SURS 01-27 22:48
PROVIDERS: Emergency Medicine; Internal Medicine; Internal Medicine Gastroenterology; Internal Medicine Hematology & Oncology; Surgery; ADMIT Internal Medicine
PROC: 0DJD8ZZ Inspection of Lower Intestinal Tract, Via Natural or Artificial Opening Endoscopic (ICD-10-PCS; 2020-01-27)
PROC: 0DTG0ZZ Resection of Left Large Intestine, Open Approach (ICD-10-PCS; principal; 2020-01-27 14:00)
PROC: 0D1E0Z4 Bypass Large Intestine to Cutaneous, Open Approach (ICD-10-PCS; 2020-01-27 16:45)
DX: C18.7 Malignant neoplasm of sigmoid colon (principal); F84.5 Asperger's syndrome; E87.1 Hypo-osmolality and hyponatremia; K56.7 Ileus, unspecified; C77.2 Secondary and unspecified malignant neoplasm of intra-abdominal lymph nodes; C78.6 Secondary malignant neoplasm of retroperitoneum and peritoneum; R18.8 Other ascites; F32.9 Major depressive disorder, single episode, unspecified; K80.20 Calculus of gallbladder without cholecystitis without obstruction; E83.39 Other disorders of phosphorus metabolism; R00.0 Tachycardia, unspecified
CPT/HCPCS: 36415; 71045; 74018; 74176; 80053; 80069; 83605; 83735; 85025; 85027; 86850; 86900; 86901; 88309; 93005; 93010; 96365; 96366; 96368; 99283-25; 99285-25; A9270; A9270-GY; C1726; C9113; J0330; J0744; J1100; J1644; J1650; J2250; J2405; J2543; J2704; J2765; J3010; J3480; J7030; J7042; J7060; J7120; Q0163; Q9968

== ENCOUNTER 2020-02-03 19:23 | Emergency (ER) | payer MEDICARE ==
[~2020-02-03] VITALS: Ht 172.7 cm; Wt 90.7 kg
[~2020-02-03 19:23] MED LIST changes: +ACET325 PO; +CEPACOL SORE T1 EACH MM; +HYDR1TAB94 PO
[2020-02-03 20:25] LABS: BASOPHILS ABSOLUTE AUTO 0.03 K/mm3 (0.00-0.23); BASOPHILS PERCENT AUTO 1 % (0-2); EOSINOPHILS ABSOLUTE AUTO 0.31 K/mm3 (0.00-0.68); EOSINOPHILS PERCENT AUTO 7 % (0-6); Hematocrit 40.6 % (37.0-53.0); Hemoglobin 13.2 g/dL (13.5-17.5); IMMATURE GRAN ABSOLUTE AUTO 0.05 K/mm3 (0.00-0.10); IMMATURE GRAN PERCENT AUTO 1 % (0-1); LYMPHOCYTES ABSOLUTE AUTO 0.96 K/mm3 (0.84-5.20); LYMPHOCYTES PERCENT AUTO 20 % (21-46); MONOCYTES ABSOLUTE AUTO 0.38 K/mm3 (0.16-1.47); MONOCYTES PERCENT AUTO 8 % (4-13); Mean Corpuscular HGB 25.6 pg (26.0-34.0); Mean Corpuscular HGB Conc 32.5 g/dL (31.5-36.5); Mean Corpuscular Volume 79 fL (80-100); Mean Platelet Volume 9.3 fL (9.1-12.4); NEUTROPHILS ABSOLUTE AUTO 2.98 K/mm3 (1.96-9.15); NEUTROPHILS PERCENT AUTO 63 % (41-73); Platelet Count 293 K/mm3 (150-400); RDW Coefficient Variation 14.6 % (11.7-14.2); RDW Standard Deviation 42.1 fL (35.1-46.3); Red Blood Cell Count 5.15 M/mm3 (4.30-5.90); White Blood Cell Count 4.71 K/mm3 (4.00-11.30)
[2020-02-03 20:40] LABS: Alanine Aminotransfer (ALT/SGP 298 U/L (12-78); Albumin, Blood 3.2 g/dL (3.4-5.0); Albumin/Globulin Ratio 0.8 (0.8-1.8); Alk Phos 144 U/L (50-136); Anion Gap 5 mmol/L (6-16); Aspartate Aminotrans (AST/SGOT 276 U/L (12-37); Bilirubin, Total 1.3 mg/dL (0.1-1.0); Blood Urea Nitrogen 7 mg/dL (8-24); Bun/Creatinine Ratio 6.8 (12.0-20.0); CO2, Blood 27 mmol/L (21-32); Calcium, Blood 8.9 mg/dL (8.5-10.1); Chloride, Blood 106 mmol/L (98-108); Creatinine, Blood 1.03 mg/dL (0.60-1.20); Glomerular Filtration Rate >60 (60-); Glucose, Blood 92 mg/dL (70-99); Potassium, Blood 3.6 mmol/L (3.5-5.5); Sodium, Blood 138 mmol/L (136-145); Total Protein, Blood 7.2 g/dL (6.4-8.2)
[2020-02-03 21:36] LABS: International Normalized Ratio 0.96; Prothrombin Time Results 10.3 Sec (9.7-11.5)
[2020-02-03 21:40] LABS: Source, Urine Clean Catch
[2020-02-03 21:53] LABS: Appearance, Urine Turbid (Clear); Bilirubin, Urine Neg (Neg); Blood, Urine 5+ (Neg); Color, Urine Red (P-Yellow); Glucose Qualitative, Urine Neg (Neg); Ketones, Urine 2+ (Neg); Leukocyte Esterase, Urine 1+ (Neg); Nitrite, Urine Neg (Neg); Protein, Urine 3+ (Neg); Specific Gravity, Urine 1.015 (1.003-1.022); Urobilinogen, Urine NORM (Normal)
[2020-02-03 21:55] LABS: Amorphous Light (0-Heavy); Bacteria Few /hpf; Red Blood Cells, Urine TNTC /hpf (0-2); Squamous Epithelial Cells Not Seen /hpf (Few)
== END 2020-02-03 22:58 | disposition home or self-care (01) ==
LOC: ER 19:23
PROVIDERS: Physician Assistant
DX: N48.89 Other specified disorders of penis (principal); F32.9 Major depressive disorder, single episode, unspecified
CPT/HCPCS: 36415; 51798; 80053; 81001; 85025; 85610; 85730; 86850; 86900; 86901; 87086; 99283-25

== ENCOUNTER 2020-02-05 01:31 | Emergency (ER) | payer MEDICARE ==
[~2020-02-05] VITALS: Ht 172.7 cm; Wt 90.7 kg
[2020-02-05 02:20] LABS: BASOPHILS ABSOLUTE AUTO 0.04 K/mm3 (0.00-0.23); BASOPHILS PERCENT AUTO 1 % (0-2); EOSINOPHILS ABSOLUTE AUTO 0.31 K/mm3 (0.00-0.68); EOSINOPHILS PERCENT AUTO 5 % (0-6); Hematocrit 38.8 % (37.0-53.0); Hemoglobin 12.4 g/dL (13.5-17.5); IMMATURE GRAN ABSOLUTE AUTO 0.07 K/mm3 (0.00-0.10); IMMATURE GRAN PERCENT AUTO 1 % (0-1); LYMPHOCYTES ABSOLUTE AUTO 1.35 K/mm3 (0.84-5.20); LYMPHOCYTES PERCENT AUTO 24 % (21-46); MONOCYTES ABSOLUTE AUTO 0.45 K/mm3 (0.16-1.47); MONOCYTES PERCENT AUTO 8 % (4-13); Mean Corpuscular HGB 25.2 pg (26.0-34.0); Mean Corpuscular Volume 79 fL (80-100); Mean Platelet Volume 9.8 fL (9.1-12.4); NEUTROPHILS ABSOLUTE AUTO 3.53 K/mm3 (1.96-9.15); NEUTROPHILS PERCENT AUTO 61 % (41-73); Platelet Count 291 K/mm3 (150-400); RDW Standard Deviation 43.1 fL (35.1-46.3); Red Blood Cell Count 4.92 M/mm3 (4.30-5.90); White Blood Cell Count 5.75 K/mm3 (4.00-11.30)
== END 2020-02-05 03:15 | disposition home or self-care (01) ==
LOC: ER 01:31
PROVIDERS: Emergency Medicine
DX: N99.821 Postprocedural hemorrhage of a genitourinary system organ or structure following other procedure (principal)
CPT/HCPCS: 85025; 99283

== ENCOUNTER 2020-02-22 08:48 | Day surgery (SDC) | payer MEDICARE ==
[~2020-02-22] VITALS: Ht 172.7 cm; Wt 86.1 kg
[~2020-02-22 08:48] MED LIST changes: +ONDA4 PO
--- NOTE | 2020-02-22 10:02 | NUR ---
History, Chart, Medications and Allergies reviewed before start of procedure. Patient States Post-Procedure ride home has been arranged. Pre-Op teaching done. Pt verbalizes understanding.
--- NOTE | 2020-02-22 14:01 | NUR ---
PT CONT TO BE VERY SLEEPY BUT DOES ANSWER WHEN SPOKEN TO. PT DENIES PAIN AND N/V VSS, WILL CONT TO MONITOR VS UNTILL PT IS AWAKE AND READY TO DISCHARGE
--- NOTE | 2020-02-22 14:20 | NUR ---
DISCHARGE PT DISCHARGED HOME VIA WC PT PAIN WAS 10/27 NO NAUSEA OR VOMITING PTS FATHER SIGN [employer]PORATE SAFETY DIRECTOR CONSENT. PT GIVEN HARD COPY RX FOR HYDROCODONE 5/325MG PT DENIED ANY QUESTIONS AND VERBALIZED ALL DISCHARGE INSTRUCTIONS
--- NOTE | 2020-02-23 09:24 | NUR ---
02/23/20 0924 Prudence Hernandes VERIFICATIONS: EDIT CHART.
== END 2020-02-22 23:00 | disposition home or self-care (01) ==
LOC: ORSCMMR 08:48 → ORD 10:30 → ORSCMMR 23:00
PROVIDERS: Surgery
PROC: B5131ZA Fluoroscopy of Right Jugular Veins using Low Osmolar Contrast, Guidance (ICD-10-PCS; principal; 2020-02-22 10:30)
PROC: 05HM33Z Insertion of Infusion Device into Right Internal Jugular Vein, Percutaneous Approach (ICD-10-PCS; principal; 2020-02-22 10:30)
DX: C18.6 Malignant neoplasm of descending colon (principal); F84.0 Autistic disorder
CPT/HCPCS: 77001; A9270-GY; C1788; J0690; J1642; J2250; J2704; J3010; J7120

== ENCOUNTER 2021-01-07 11:28 | Day surgery (SDC) | payer MEDICARE ==
[~2021-01-07] VITALS: Ht 172.7 cm; Wt 95.8 kg
[~2021-01-07 11:28] MED LIST changes: +ONDA4ODT MM; +PANT40 PO; +SERT25 PO
== END 2021-01-07 13:20 | disposition home or self-care (01) ==
LOC: ORSCSDS 11:28
PROVIDERS: Surgery
PROC: 0DJD8ZZ Inspection of Lower Intestinal Tract, Via Natural or Artificial Opening Endoscopic (ICD-10-PCS; principal; 2021-01-07 13:00)
DX: Z85.038 Personal history of other malignant neoplasm of large intestine (principal); K52.9 Noninfective gastroenteritis and colitis, unspecified; Z93.3 Colostomy status; E66.9 Obesity, unspecified; Z68.32 Body mass index [BMI] 32.0-32.9, adult; F84.0 Autistic disorder; Z79.899 Other long term (current) drug therapy
CPT/HCPCS: J2704; J7120

== ENCOUNTER 2021-01-08 05:51 | Inpatient (IN) | payer MEDICARE ==
[~2021-01-08] VITALS: Ht 172.7 cm; Wt 96.0 kg
--- NOTE | 2021-01-08 16:05 | NUR ---
pt arrived to room 233 from pacu pt is s/p colectomy reversal pt has 4 lap site and pilo dressing c/d/i pt reports min pain no nausea at this time offered cl pt declined stated he wants to rest oriented to room call light in reach
--- NOTE | 2021-01-08 16:25 | NUR ---
DR MALHOTRA BY TO SEE PT
--- NOTE | 2021-01-08 17:37 | NUR ---
pt sleeping wakes to verbal stimuli pt rq some ice chips still no nausea did not want any jello offered pain meds again pt stated at this time his elbow is hurting only
[2021-01-09 04:45] LABS: BASOPHILS ABSOLUTE AUTO 0.02 K/mm3 (0.00-0.23); BASOPHILS PERCENT AUTO 0 % (0-2); EOSINOPHILS ABSOLUTE AUTO 0.02 K/mm3 (0.00-0.68); EOSINOPHILS PERCENT AUTO 0 % (0-6); Hematocrit 44.2 % (37.0-53.0); Hemoglobin 15.2 g/dL (13.5-17.5); IMMATURE GRAN ABSOLUTE AUTO 0.02 K/mm3 (0.00-0.10); IMMATURE GRAN PERCENT AUTO 0 % (0-1); LYMPHOCYTES ABSOLUTE AUTO 0.89 K/mm3 (0.84-5.20); LYMPHOCYTES PERCENT AUTO 12 % (21-46); MONOCYTES ABSOLUTE AUTO 0.71 K/mm3 (0.16-1.47); MONOCYTES PERCENT AUTO 9 % (4-13); Mean Corpuscular HGB 29.2 pg (26.0-34.0); Mean Corpuscular HGB Conc 34.4 g/dL (31.5-36.5); Mean Corpuscular Volume 85 fL (80-100); Mean Platelet Volume 9.6 fL (9.1-12.4); NEUTROPHILS ABSOLUTE AUTO 5.87 K/mm3 (1.96-9.15); NEUTROPHILS PERCENT AUTO 78 % (41-73); Platelet Count 137 K/mm3 (150-400); RDW Coefficient Variation 12.2 % (11.7-14.2); RDW Standard Deviation 37.2 fL (35.1-46.3); White Blood Cell Count 7.53 K/mm3 (4.00-11.30)
[2021-01-09 05:09] LABS: Alanine Aminotransfer (ALT/SGP 57 U/L (12-78); Albumin, Blood 3.1 g/dL (3.4-5.0); Albumin/Globulin Ratio 1.1 (0.8-1.8); Alk Phos 65 U/L (50-136); Anion Gap 4 mmol/L (6-16); Aspartate Aminotrans (AST/SGOT 55 U/L (12-37); Bilirubin, Total 2.4 mg/dL (0.1-1.0); Blood Urea Nitrogen 10 mg/dL (8-24); Bun/Creatinine Ratio 9.5 (12.0-20.0); CO2, Blood 28 mmol/L (21-32); Chloride, Blood 109 mmol/L (98-108); Creatinine, Blood 1.05 mg/dL (0.60-1.20); Globulin, Blood 2.7 g/dL (2.2-4.0); Glomerular Filtration Rate >60 (60-); Glucose, Blood 96 mg/dL (70-99); Potassium, Blood 3.8 mmol/L (3.5-5.5); Sodium, Blood 141 mmol/L (136-145); Total Protein, Blood 5.8 g/dL (6.4-8.2)
--- NOTE | 2021-01-09 06:20 | NUR ---
POD 1 S/P COLOSTOMY REVERSAL. PT VSS T/O NIGHT. ALEXA DRESSING INTACT W/SMALL AMT SS DRNG; SEAL AND SX INTACT. BT HYPO, PT REL NO FLATUS YET, PO INTAKE MINIMAL, ONLY FEW SIPS WATER AND ICE CHIPS. PAIN MGD W/0.5 MG IV DILAUDID W/REP RELIEF. CANNON PATANT DRNG PAUL URINE. PT SHIFTING SELF IN BED, PLAN TO MOBILIZE PT JUDAH.
--- NOTE | 2021-01-09 15:33 | NUR ---
REPORTED TO BHANU Bermudez RN. TURNED OVER CARE OF PT.
--- NOTE | 2021-01-09 16:05 | NUR ---
1533 ASSUMED CARE OF PATIENT. PT REPORTS PAIN IS ADEQUIATELU CONTROLLED AT THISTIME. ALEXA IN PLACE AND FUNCTIONINT TO MIDLINE ABD. DRIED BLOODY DRAINAGE PRESENT. GAUZE DRESSING CDI TO ABDOMEN. CALL LIGHT IN REACH AND PATIENT DENIES ANY NEEDS AT THIS TIME. PT INSTRUCTED TO USE IS FOR 10 REPS EACH HOUR
--- NOTE | 2021-01-09 18:03 | NUR ---
SUMMARY PT SITTING UP IN CHAIR, DENIES ANY NAUSEA. PT REPORTS PAIN IS ADEQUATELY CONTROLLED. ALEXA IN PLACE AND FUNCTIONING
--- NOTE | 2021-01-10 05:41 | NUR ---
POD 2 S/P COLOSTOMY TAKEDOWN. PT VSS T/O NIGHT. NO CHANGES IN DRNG TO ALEXA DRESSING; SEAL AND SX INTACT. DRESSING OVER STOMA SITE CDI. BT ACTIVE, PT REP NO FLATUS YET. PO INTAKE MINIMAL, PER PT REQ; PT STATES WANTS TO WAIT TO INC PO UNTIL PASSING FLATUS. IVF CONT PER ORDERS. PT VOIDING URINE W/O DIFFICULTY. PT USING I/S W/REMINDING. PAIN MGD W/IV DILAUDID W/REP RELIEF; PT RATES PAIN HIGH 4/10, IMPROVED TO 2/10 AFTER PAIN MEDS. PLAN TO MOBILIZE PT JUDAH.
--- NOTE | 2021-01-10 11:00 | NUR ---
AMBULATING IN DAUGHERTY W/[employer]
--- NOTE | 2021-01-10 13:08 | NUR ---
PT REPORTS PASSING FLATUS
--- NOTE | 2021-01-10 19:25 | NUR ---
SUMMARY NO ACUTE CHANGES T/O SHIFT. PT PASSING FLATUS. TAKING SMALL AMOUNTS OF CLEAR LIQUIDS. AMBULATED THROUGH HALLS MULTIPLE TIMES. CALL LIGHT IN REACH.
--- NOTE | 2021-01-11 04:39 | NUR ---
SHIFT SUMMARY POD#3 COLOSTOMY REVERSAL. AAOX4. DISCOMFORT CONTROLLED WITH X1 NORCO THIS SHIFT. NO NAUSEA/EMESIS. ABD INCISION WITH DRESSING C/D/I, TO BE CHANGED DAILY PER ORDERS. TOLERATING CLEAR LIQUID DIET. PT REPORTING LARGE AMOUNTS OF GAS + MULTIPLE LOOSE BMs THIS SHIFT. INDEPENDENT IN ROOM + OUT IN HALLS TO AMBULATE. RESTING WELL THIS AM WITH CALL LIGHT IN REACH.
--- NOTE | 2021-01-11 17:35 | NUR ---
SHIFT SUMMARY PT POD 3 OSTOMY REVERSAL. INCISION SITE W/PICCO DRESSING C/D/I. PT HAS REPORTED PAIN TOLERABLE AT 10/27 T/O SHIFT DECLINING THE NEED FOR PAIN MEDICATION. TOLERATING CLEAR LIQUIDS, DENIES N/V, SALINE LOCKED.REPORTS FLATUS/BM'S. PT AMBULATING IN HALLWAY INDEPENDENTLY T/O SHIFT.
--- NOTE | 2021-01-12 16:28 | NUR ---
DISCHARGE PT DISCHARGED HOME FROM UNIT AT APROX 1600. PT GIVEN WRITTEN AND VERBAL DISCHARGE INSTRUCTIONS AND VERBALIZED UNDERSTANDING OF THESE INSTRUCTIONS. PT GIVEN WOUND CARE INSTRUCTIONS AND PACKING SUPPLIES FOR WOUND. IV REMOVED. DECLINED WHEELCHAIR TO CAR, AMBULATED INDEPENDENTLY TO CAR.
== END 2021-01-12 16:30 | disposition home or self-care (01) | DRG 337 ==
LOC: SURS 05:51 → PRE IP 07:30 → SURS 15:51
PROVIDERS: ADMIT Surgery
PROC: 0DN84ZZ Release Small Intestine, Percutaneous Endoscopic Approach (ICD-10-PCS; 2021-01-08)
PROC: 0DSN4ZZ Reposition Sigmoid Colon, Percutaneous Endoscopic Approach (ICD-10-PCS; 2021-01-08)
PROC: 0DNN4ZZ Release Sigmoid Colon, Percutaneous Endoscopic Approach (ICD-10-PCS; 2021-01-08)
PROC: 0DSK4ZZ Reposition Ascending Colon, Percutaneous Endoscopic Approach (ICD-10-PCS; principal; 2021-01-08 07:30)
DX: Z43.3 Encounter for attention to colostomy (principal); Z85.038 Personal history of other malignant neoplasm of large intestine; Z92.21 Personal history of antineoplastic chemotherapy
CPT/HCPCS: 36415; 80053; 85025; 86850; 86900; 86901; 88304; A9270; J0295; J0330; J1170; J1650; J1885; J2250; J2704; J2710; J3010; J7120

== ENCOUNTER 2024-07-21 17:09 | Inpatient (IN) | payer OTHER ==
[~2024-07-21] VITALS: Ht 172.7 cm; Wt 90.7 kg
[2024-07-21 17:31] LABS: BASOPHILS ABSOLUTE AUTO 0.07 K/mm3 (0.00-0.23); BASOPHILS PERCENT AUTO 1 % (0-2); EOSINOPHILS PERCENT AUTO 5 % (0-6); Hematocrit 42.7 % (37.0-53.0); Hemoglobin 13.2 g/dL (13.5-17.5); IMMATURE GRAN ABSOLUTE AUTO 0.02 K/mm3 (0.00-0.10); IMMATURE GRAN PERCENT AUTO 0 % (0-1); LYMPHOCYTES ABSOLUTE AUTO 1.85 K/mm3 (0.84-5.20); LYMPHOCYTES PERCENT AUTO 19 % (21-46); MONOCYTES ABSOLUTE AUTO 0.75 K/mm3 (0.16-1.47); MONOCYTES PERCENT AUTO 8 % (4-13); Mean Corpuscular HGB 22.3 pg (26.0-34.0); Mean Corpuscular HGB Conc 30.9 g/dL (31.5-36.5); Mean Corpuscular Volume 72 fL (80-100); Mean Platelet Volume 9.4 fL (9.1-12.4); NEUTROPHILS ABSOLUTE AUTO 6.82 K/mm3 (1.96-9.15); NEUTROPHILS PERCENT AUTO 68 % (41-73); Platelet Count 291 K/mm3 (150-400); RDW Coefficient Variation 19.6 % (11.7-14.2); RDW Standard Deviation 48.9 fL (35.1-46.3); Red Blood Cell Count 5.91 M/mm3 (4.30-5.90); White Blood Cell Count 10.01 K/mm3 (4.00-11.30)
[2024-07-21 17:52] LABS: Albumin, Blood 4.1 g/dL (3.4-5.0); Albumin/Globulin Ratio 1.1 (0.8-1.8); Bilirubin, Total 0.8 mg/dL (0.1-1.0); Calcium, Blood 9.2 mg/dL (8.5-10.1); Creatinine, Blood 1.62 mg/dL (0.60-1.20); Globulin, Blood 3.7 g/dL (2.2-4.0); Potassium, Blood 3.9 mmol/L (3.5-5.5); Total Protein, Blood 7.8 g/dL (6.4-8.2)
[2024-07-21] MEDS ORDERED: NS 1,000 ML IV SCH ×2 (18:40→22:15)
[2024-07-21] MEDS ORDERED: Lactated Ringer's 1,000 ML IV SCH (21:30)
[2024-07-21 21:33] LABS: Source, Urine Clean Catch
[2024-07-21] MEDS ORDERED: Ondansetron HCl 2 MG / ML 2ML Vial IV ONE (21:35)
[2024-07-21] MEDS ORDERED: Morphine Sulfate 4 MG/1 ML Injection IV ONE (21:35)
[2024-07-21 21:41] LABS: Appearance, Urine Clear (Clear); Bilirubin, Urine Neg (Neg); Blood, Urine Neg (Neg); Color, Urine Yellow (P-Yellow); Glucose Qualitative, Urine Neg (Neg); Ketones, Urine Neg (Neg); Leukocyte Esterase, Urine Neg (Neg); Nitrite, Urine Neg (Neg); Protein, Urine 1+ (Neg); Urobilinogen, Urine NORM (Normal)
[2024-07-21] MEDS ORDERED: FLU VACC TS2024-25(6MOS UP)/PF 45 MCG/0.5 ML SYRINGE IM SCH (22:15)
[2024-07-21] MEDS ORDERED: Ondansetron HCl 2 MG / ML 2ML Vial IV PRN (22:15)
[2024-07-21] MEDS ORDERED: FentaNYL Citrate 50 MCG/ML 2 ML Injection IV PRN (22:20)
[2024-07-21 23:47] VITALS: BP 152/90
[2024-07-22 04:57] LABS: BASOPHILS ABSOLUTE AUTO 0.03 K/mm3 (0.00-0.23); BASOPHILS PERCENT AUTO 0 % (0-2); EOSINOPHILS ABSOLUTE AUTO 0.39 K/mm3 (0.00-0.68); EOSINOPHILS PERCENT AUTO 6 % (0-6); Hematocrit 40.4 % (37.0-53.0); Hemoglobin 12.4 g/dL (13.5-17.5); IMMATURE GRAN ABSOLUTE AUTO 0.01 K/mm3 (0.00-0.10); IMMATURE GRAN PERCENT AUTO 0 % (0-1); LYMPHOCYTES ABSOLUTE AUTO 0.77 K/mm3 (0.84-5.20); LYMPHOCYTES PERCENT AUTO 11 % (21-46); MONOCYTES ABSOLUTE AUTO 0.81 K/mm3 (0.16-1.47); MONOCYTES PERCENT AUTO 12 % (4-13); Mean Corpuscular HGB 22.1 pg (26.0-34.0); Mean Corpuscular HGB Conc 30.7 g/dL (31.5-36.5); Mean Corpuscular Volume 72 fL (80-100); Mean Platelet Volume 9.4 fL (9.1-12.4); NEUTROPHILS ABSOLUTE AUTO 4.92 K/mm3 (1.96-9.15); NEUTROPHILS PERCENT AUTO 71 % (41-73); Platelet Count 243 K/mm3 (150-400); RDW Coefficient Variation 19.6 % (11.7-14.2); RDW Standard Deviation 49.4 fL (35.1-46.3); Red Blood Cell Count 5.62 M/mm3 (4.30-5.90); White Blood Cell Count 6.93 K/mm3 (4.00-11.30)
[2024-07-22 05:25] LABS: Albumin, Blood 3.5 g/dL (3.4-5.0); Bilirubin, Total 0.9 mg/dL (0.1-1.0); Bun/Creatinine Ratio 14.1 (12.0-20.0); Calcium, Blood 8.8 mg/dL (8.5-10.1); Creatinine, Blood 1.35 mg/dL (0.60-1.20); Globulin, Blood 3.4 g/dL (2.2-4.0); Potassium, Blood 3.9 mmol/L (3.5-5.5); Total Protein, Blood 6.9 g/dL (6.4-8.2)
[2024-07-22 07:10] VITALS: BP 147/78
[2024-07-22] MEDS ORDERED: Lactated Ringer's 1,000 ML IV SCH ×2 (09:00→11:10)
[2024-07-22 15:05] VITALS: BP 149/91
--- NOTE | 2024-07-22 18:36 | NUR ---
SHIFT SUMMARY PT IS A/OX4. NO ACUTE EVENTS THROUGHOUT THE SHIFT. NO EPISODES OF N/V OR PAIN. ON RA, TELE RUNNING SINUS RHYTHM. LR RUNNING @ 150 ML/HR. PT ADVANCED TO A CLEAR LIQUID DIET FOR DINNER AND HAS TOLERTED IT WELL.
[2024-07-22 20:24] VITALS: BP 136/90
[2024-07-23 04:28] VITALS: BP 130/82
[2024-07-23 07:55] VITALS: BP 134/85
[2024-07-23 09:11] LABS: BASOPHILS ABSOLUTE AUTO 0.03 K/mm3 (0.00-0.23); BASOPHILS PERCENT AUTO 1 % (0-2); EOSINOPHILS ABSOLUTE AUTO 0.61 K/mm3 (0.00-0.68); EOSINOPHILS PERCENT AUTO 11 % (0-6); Hematocrit 40.1 % (37.0-53.0); Hemoglobin 12.4 g/dL (13.5-17.5); IMMATURE GRAN ABSOLUTE AUTO 0.02 K/mm3 (0.00-0.10); IMMATURE GRAN PERCENT AUTO 0 % (0-1); LYMPHOCYTES PERCENT AUTO 20 % (21-46); MONOCYTES ABSOLUTE AUTO 0.51 K/mm3 (0.16-1.47); MONOCYTES PERCENT AUTO 9 % (4-13); Mean Corpuscular HGB 22.4 pg (26.0-34.0); Mean Corpuscular HGB Conc 30.9 g/dL (31.5-36.5); Mean Corpuscular Volume 73 fL (80-100); Mean Platelet Volume 9.2 fL (9.1-12.4); NEUTROPHILS ABSOLUTE AUTO 3.14 K/mm3 (1.96-9.15); NEUTROPHILS PERCENT AUTO 58 % (41-73); Platelet Count 213 K/mm3 (150-400); RDW Coefficient Variation 19.5 % (11.7-14.2); RDW Standard Deviation 48.9 fL (35.1-46.3); Red Blood Cell Count 5.53 M/mm3 (4.30-5.90); White Blood Cell Count 5.41 K/mm3 (4.00-11.30)
[2024-07-23 09:32] LABS: Bun/Creatinine Ratio 10.1 (12.0-20.0); Calcium, Blood 8.7 mg/dL (8.5-10.1); Creatinine, Blood 1.38 mg/dL (0.60-1.20); Potassium, Blood 3.7 mmol/L (3.5-5.5)
[2024-07-23 16:29] VITALS: BP 148/93
--- NOTE | 2024-07-23 17:53 | NUR ---
SHIFT SUMMARY PT IS A/OX4 AND INDEPENDENT IN THE ROOM. PT REMAINS ON A CLEAR LIQUID DIET AND TOLERTATING IT WELL WITH NO EPISODES OF N/V OR PAIN. PT REMAINS ON RA, TELE RUNNING NORMAL SINUS RHYTHM IN THE 60-70'S. PT UNABLE TO TRANSFER TO [facility], NOT A SURGICAL CANIDIDATE. PT TO BE NPO AT MIDNIGHT FOR MEDIPORT PLACEMENT AND TO FOLLOW UP WITH DR SONI FOR CHEMOTHERAPY. PALLIATIVE CARE HAS BEEN CONSULTED. FAMILY CALLED AND NOTIFIED.
[2024-07-23 20:12] VITALS: BP 145/91
[2024-07-24] VITALS (15 sets, daily range): BP systolic 125–142; BP diastolic 82–96
[2024-07-24 05:43] LABS: BASOPHILS ABSOLUTE AUTO 0.03 K/mm3 (0.00-0.23); BASOPHILS PERCENT AUTO 1 % (0-2); EOSINOPHILS ABSOLUTE AUTO 0.62 K/mm3 (0.00-0.68); EOSINOPHILS PERCENT AUTO 10 % (0-6); Hematocrit 40.7 % (37.0-53.0); Hemoglobin 12.8 g/dL (13.5-17.5); IMMATURE GRAN ABSOLUTE AUTO 0.01 K/mm3 (0.00-0.10); IMMATURE GRAN PERCENT AUTO 0 % (0-1); LYMPHOCYTES ABSOLUTE AUTO 1.57 K/mm3 (0.84-5.20); LYMPHOCYTES PERCENT AUTO 26 % (21-46); MONOCYTES ABSOLUTE AUTO 0.74 K/mm3 (0.16-1.47); MONOCYTES PERCENT AUTO 12 % (4-13); Mean Corpuscular HGB 22.4 pg (26.0-34.0); Mean Corpuscular HGB Conc 31.4 g/dL (31.5-36.5); Mean Corpuscular Volume 71 fL (80-100); Mean Platelet Volume 9.5 fL (9.1-12.4); NEUTROPHILS PERCENT AUTO 51 % (41-73); Platelet Count 230 K/mm3 (150-400); RDW Coefficient Variation 18.7 % (11.7-14.2); Red Blood Cell Count 5.72 M/mm3 (4.30-5.90); White Blood Cell Count 6.07 K/mm3 (4.00-11.30)
[2024-07-24 06:26] LABS: Bun/Creatinine Ratio 9.9 (12.0-20.0); Creatinine, Blood 1.51 mg/dL (0.60-1.20); Potassium, Blood 3.8 mmol/L (3.5-5.5)
[2024-07-24] MEDS ORDERED: CeFAZolin Sodium 2,000 MG in NS 100 ML IV SCH (11:10)
[2024-07-24] MEDS ORDERED: Lactated Ringer's 1,000 ML IV SCH (11:10)
[2024-07-24] MEDS ORDERED: CeFAZolin Sodium 2,000 MG VIAL ONE (11:32)
[2024-07-24] MEDS ORDERED: propofoL 20 ML IV ONE (11:43)
[2024-07-24] MEDS ORDERED: FentaNYL Citrate 50 MCG/ML 2 ML Injection ONE (11:43)
[2024-07-24] MEDS ORDERED: Ondansetron HCl 2 MG / ML 2ML Vial ONE (11:45)
[2024-07-24] MEDS ORDERED: Dexamethasone Sod Phos 10 MG/ML 1ML VIAL ONE (11:45)
[2024-07-24] MEDS ORDERED: Lidocaine HCl 1% 5 ML SYR INJ ONE (11:55)
[2024-07-24] MEDS ORDERED: Midazolam HCl 1MG / ML 2ML Vial IV PRN (11:55)
--- NOTE | 2024-07-24 12:01 | NUR ---
PRE-OP NOTE PT A&OX4, BREATHING RA, NO COMPLAINTS. Ambulatory in Day Surgery Patient confirms NPO status and agrees with scheduled surgery. Pre-Op teaching done. Pt verbalizes understanding. TELE HAS BEEN SENT TO PACU.
[2024-07-24] MEDS ORDERED: Lidocaine HCl 1% 30 ML SDV ONE (12:08)
[2024-07-24] MEDS ORDERED: Bupivacaine 0.5% HCl 5 MG/ML 30MLVIAL ONE (12:08)
--- NOTE | 2024-07-24 14:14 | NUR ---
PER DR. HOLDER PT IS TO REMAIN NPO UNTIL 4 PM FOR NEPHROSTOMY PLACEMENT SURGERY. IF SURGERY IS UNABLE TO BE DONE TODAY THEN HE WILL RESUME CLEAR LIQUID DIET AFTER 4 PM AND WILL BE NPO AT MIDNIGHT TONIGHT.
--- NOTE | 2024-07-24 14:55 | NUR ---
NOTE PT BACK FROM THE OR, NOW IN ROOM. PT TRANSFERED SELF TO BED FROM. PT ON 12L N/C. SATS ARE 98%. TITRATED O2 TO 1L. RESPIRATIONS EVEN AND UNLABORED. PT REPORTS NO NAUSEA. PT REPORTS NO PAIN. SCD'S ON BLE. PT NPO DUE TO POSSIBLE SECOND PROCEDURE LATER TODAY. CALL LIGHT IN REACH.
--- NOTE | 2024-07-24 18:42 | NUR ---
SHIFT SUMMARY PT A&0X4. PT ADMITED DUE TO SMALL BOWEL OBSTRUCTION. PT LAST BOWEL MOVEMENT WAS YESTERDAY. PT HAS IV, ON TELE. PT HAD PORT PLACEMENT IN TODAY. PT ABLE TO VOID POST PROCEDURE. PT AMBULATING, AND WENT FOR WALK. PT IS ON FULL LIQUID DIET AND TOLERATING. VSS. PT ON ROOM AIR. PT PLEASANT AND COOROPERATIVE AND CALLS APPROPRIATELY, AND CALL LIGHT IN REACH.
[2024-07-25] VITALS (7 sets, daily range): BP systolic 116–138; BP diastolic 74–96
--- NOTE | 2024-07-25 04:35 | NUR ---
SHIFT SUMMARY: Pt is admitted for small bowel obstruction and is a full code. Is alert and able to make needs known. ADLs have been IND. states he has has some minor pain at mediport insertion site. Mediport placed yesterday. He states its just leticia sore. Telly report sinus in the 60s unless he is up moving then the will go into the 130-150s.
[2024-07-25 06:00] LABS: BASOPHILS ABSOLUTE AUTO 0.01 K/mm3 (0.00-0.23); BASOPHILS PERCENT AUTO 0 % (0-2); EOSINOPHILS ABSOLUTE AUTO 0.01 K/mm3 (0.00-0.68); EOSINOPHILS PERCENT AUTO 0 % (0-6); Hematocrit 40.6 % (37.0-53.0); Hemoglobin 12.8 g/dL (13.5-17.5); IMMATURE GRAN ABSOLUTE AUTO 0.04 K/mm3 (0.00-0.10); IMMATURE GRAN PERCENT AUTO 1 % (0-1); LYMPHOCYTES ABSOLUTE AUTO 0.99 K/mm3 (0.84-5.20); LYMPHOCYTES PERCENT AUTO 12 % (21-46); MONOCYTES ABSOLUTE AUTO 0.72 K/mm3 (0.16-1.47); MONOCYTES PERCENT AUTO 8 % (4-13); Mean Corpuscular HGB 22.5 pg (26.0-34.0); Mean Corpuscular HGB Conc 31.5 g/dL (31.5-36.5); Mean Corpuscular Volume 71 fL (80-100); Mean Platelet Volume 9.5 fL (9.1-12.4); NEUTROPHILS PERCENT AUTO 79 % (41-73); Platelet Count 277 K/mm3 (150-400); RDW Coefficient Variation 18.3 % (11.7-14.2); RDW Standard Deviation 45.8 fL (35.1-46.3); White Blood Cell Count 8.57 K/mm3 (4.00-11.30)
[2024-07-25 06:29] LABS: Bun/Creatinine Ratio 11.8 (12.0-20.0); Creatinine, Blood 1.44 mg/dL (0.60-1.20)
[2024-07-25] MEDS ORDERED: NS 500 ML IV ONE ×2 (10:27→10:51)
--- NOTE | 2024-07-25 10:48 | NUR ---
NOTE PT JUST LEFT ROOM AT 1050 BY WHEELCHAIR FOR L NEPHROSTOMY PROCEDURE.
[2024-07-25] MEDS ORDERED: CeFAZolin Sodium 2,000 MG VIAL ONE (10:51)
[2024-07-25] MEDS ORDERED: NS 100 ML IV ONE (10:52)
[2024-07-25] MEDS ORDERED: Midazolam HCl 1MG / ML 2ML Vial ONE (11:00)
[2024-07-25] MEDS ORDERED: FentaNYL Citrate 50 MCG/ML 2 ML Injection ONE (11:00)
--- NOTE | 2024-07-25 13:19 | NUR ---
PT IS BACK FROM L NEPHROSTOMY PLACEMENT. HE IS A/O X 4, ABLE TO ANSWER QUESTIONS APPROPRIATELY. HE REPORTS HE DOES HAVE PAIN TO LEFT SIDE AT PLACEMENT SITE BUT STATES IT IS TOLERABLE. DENIES NEED FOR PAIN MEDICATION AT THIS TIME. DISCUSSED IMPORTANCE OF PAIN MANAGEMENT WITH PT. PT V/U. PT VSS AT THIS TIME. SITE DRESSING IS CDI, NO REDNESS OR SWELLING AT SITE. DRAINING PINK COLORED URINE AT THIS TIME. APPROX 50 CC IN BAG.
--- NOTE | 2024-07-25 14:12 | NUR ---
PT IS C/O 5/10 PAIN AT L NEPHROSTOMY SITE. PT REQUESTS PAIN MEDICATION. CALLED MD REQUESTING ORAL PAIN MEDICATION FOR MODERATE PAIN LEVEL. MD STATED SHE WOULD PLACE ORDER.
[2024-07-25] MEDS ORDERED: Acetaminophen 325 MG TABLET PO PRN (15:00)
[2024-07-25] MEDS ORDERED: HYDROcodone 5-APAP 325 TAB PO PRN (16:35)
--- NOTE | 2024-07-25 18:35 | NUR ---
SHIFT SUMMARY PT A&OX4. PT ADMITTED DUE TO SMALL BOWEL OBSTRUCTION. PT HAD MEDIPORT PLACED YESTERDAY AND A NEPHROTOMY PLACED ON L SIDE. PT REPORTS L FLANK PAIN POST OP. PAIN MANAGED PER EMAR. PT VSS. PT AMBULATES, AND WENT ON WALK IN DAUGHERTY. PT ABLE TO AMBULATE TO TOILET TO VOID. VOID IS BEING PRODUCED IN NEPHROSTOMY BAG, URINE IN BACK IS PINK. SURGICAL SITE ON L FLANK IS C/D/I AND HAS DRESSING. PLAN IS TO D/C TOMORROW. PT WILL FOLLOW UP WITH DR. SONI FOR CHEMO. PT IS PLEASANT AND COOROPERATIVE. PT ON TELE. CALL LIGHT IN REACH.
[2024-07-26 02:44] VITALS: BP 131/83
--- NOTE | 2024-07-26 04:11 | NUR ---
SHIFT SUMMARY PATIENT HAD NO ACUTE CHANGES. AXOX 4 AND INDEPENDENT IN ROOM. DENIES CHEST PAIN, SOB, AND N/V. REPORTED LEFT FLANK PAIN X ONE AND NORCO GIVEN PER EMAR. VSS/AFEBRILE, PIV INTACT. TELE MONITOR NSR 81. LEFT NEPHROSTOMY TUBE INTAKE DRAINING PINK/RED URINE. NEW MEDIPORT INTACT AND NOT ACCESSED. CALL LIGHT IN REACH. BED IN LOWEST POSITION. WILL CONTINUE TO MONITOR UNTIL DAY SHIFT NURSE ASSUMES CARE.
[2024-07-26 07:28] VITALS: BP 133/87
[2024-07-26 08:05] LABS: BASOPHILS ABSOLUTE AUTO 0.05 K/mm3 (0.00-0.23); BASOPHILS PERCENT AUTO 1 % (0-2); EOSINOPHILS ABSOLUTE AUTO 0.36 K/mm3 (0.00-0.68); EOSINOPHILS PERCENT AUTO 6 % (0-6); Hematocrit 40.5 % (37.0-53.0); Hemoglobin 12.7 g/dL (13.5-17.5); IMMATURE GRAN ABSOLUTE AUTO 0.02 K/mm3 (0.00-0.10); IMMATURE GRAN PERCENT AUTO 0 % (0-1); LYMPHOCYTES ABSOLUTE AUTO 1.53 K/mm3 (0.84-5.20); LYMPHOCYTES PERCENT AUTO 24 % (21-46); MONOCYTES ABSOLUTE AUTO 0.63 K/mm3 (0.16-1.47); MONOCYTES PERCENT AUTO 10 % (4-13); Mean Corpuscular HGB 22.3 pg (26.0-34.0); Mean Corpuscular HGB Conc 31.4 g/dL (31.5-36.5); Mean Corpuscular Volume 71 fL (80-100); Mean Platelet Volume 9.4 fL (9.1-12.4); NEUTROPHILS ABSOLUTE AUTO 3.72 K/mm3 (1.96-9.15); NEUTROPHILS PERCENT AUTO 59 % (41-73); Platelet Count 243 K/mm3 (150-400); RDW Coefficient Variation 19.1 % (11.7-14.2); RDW Standard Deviation 46.9 fL (35.1-46.3); Red Blood Cell Count 5.69 M/mm3 (4.30-5.90); White Blood Cell Count 6.31 K/mm3 (4.00-11.30)
[2024-07-26 08:24] LABS: Bun/Creatinine Ratio 10.6 (12.0-20.0); Calcium, Blood 9.6 mg/dL (8.5-10.1); Creatinine, Blood 1.51 mg/dL (0.60-1.20); Potassium, Blood 3.7 mmol/L (3.5-5.5)
[2024-07-26 13:55] LABS: Bun/Creatinine Ratio 11.2 (12.0-20.0); Calcium, Blood 9.3 mg/dL (8.5-10.1); Creatinine, Blood 1.52 mg/dL (0.60-1.20); Potassium, Blood 3.6 mmol/L (3.5-5.5)
[2024-07-26] MEDS ORDERED: ACET325 PO (15:07)
--- NOTE | 2024-07-26 16:22 | NUR ---
DISCHARGE NOTE PT DISCHARGED TO HOME, PICKED UP BY A TAXI. IV REMOVED, TELE RETURNED. DISCHARGE INSTRUCTIONS VERBALIZED AND PT AGREED TO UNDERSTANDING. DISCHARGE PACKET AND EDUCATION PROVIDED. NO NEW MEDICATIONS WERE FAXED, HE DID NOT HAVE ANY.
== END 2024-07-26 15:38 | disposition home or self-care (01) | DRG 357 ==
LOC: ER 17:09 → MEDS 17:10
PROVIDERS: Emergency Medicine; Physician Assistant; Registered Nurse; Student in an Organized Health Care Education/Training Program; Surgery; ADMIT Internal Medicine
PROC: 02HV33Z Insertion of Infusion Device into Superior Vena Cava, Percutaneous Approach (ICD-10-PCS; 2024-07-24)
PROC: B518ZZA Fluoroscopy of Superior Vena Cava, Guidance (ICD-10-PCS; 2024-07-24)
PROC: B548ZZA Ultrasonography of Superior Vena Cava, Guidance (ICD-10-PCS; 2024-07-24)
PROC: 0JH60WZ Insertion of Totally Implantable Vascular Access Device into Chest Subcutaneous Tissue and Fascia, Open Approach (ICD-10-PCS; principal; 2024-07-24 13:00)
PROC: 0T9430Z Drainage of Left Kidney Pelvis with Drainage Device, Percutaneous Approach (ICD-10-PCS; 2024-07-25)
PROC: BT1F1ZZ Fluoroscopy of Left Kidney, Ureter and Bladder using Low Osmolar Contrast (ICD-10-PCS; 2024-07-25)
DX: C18.9 Malignant neoplasm of colon, unspecified (principal); C78.6 Secondary malignant neoplasm of retroperitoneum and peritoneum; K56.609 Unspecified intestinal obstruction, unspecified as to partial versus complete obstruction; N17.9 Acute kidney failure, unspecified; F84.0 Autistic disorder; N13.1 Hydronephrosis with ureteral stricture, not elsewhere classified; F32.A Depression, unspecified; M67.40 Ganglion, unspecified site; K80.20 Calculus of gallbladder without cholecystitis without obstruction; R21 Rash and other nonspecific skin eruption; K38.1 Appendicular concretions; R91.1 Solitary pulmonary nodule; Z90.49 Acquired absence of other specified parts of digestive tract
CPT/HCPCS: 36415; 74177; 76937; 77001; 80048; 80053; 83690; 83880; 85025; 96361; 96374-59; 96375; 99152; 99153; 99285-25; A9270; C1729; C1769; C1788; C1894; G0378; J0690; J1100; J1642; J2250; J2270; J2405; J2704; J3010; J7030; J7040; J7120; Q9967

== ENCOUNTER 2024-09-01 01:28 | Emergency (ER) | payer OTHER ==
[~2024-09-01] VITALS: Ht 172.7 cm; Wt 90.7 kg
[2024-09-01 03:00] LABS: BASOPHILS ABSOLUTE AUTO 0.07 K/mm3 (0.00-0.23); BASOPHILS PERCENT AUTO 1 % (0-2); EOSINOPHILS ABSOLUTE AUTO 0.37 K/mm3 (0.00-0.68); EOSINOPHILS PERCENT AUTO 3 % (0-6); Hematocrit 44.6 % (37.0-53.0); Hemoglobin 14.1 g/dL (13.5-17.5); IMMATURE GRAN ABSOLUTE AUTO 0.04 K/mm3 (0.00-0.10); IMMATURE GRAN PERCENT AUTO 0 % (0-1); LYMPHOCYTES ABSOLUTE AUTO 1.56 K/mm3 (0.84-5.20); LYMPHOCYTES PERCENT AUTO 13 % (21-46); MONOCYTES ABSOLUTE AUTO 1.21 K/mm3 (0.16-1.47); MONOCYTES PERCENT AUTO 10 % (4-13); Mean Corpuscular HGB 22.9 pg (26.0-34.0); Mean Corpuscular HGB Conc 31.6 g/dL (31.5-36.5); Mean Corpuscular Volume 72 fL (80-100); Mean Platelet Volume 9.4 fL (9.1-12.4); NEUTROPHILS ABSOLUTE AUTO 8.47 K/mm3 (1.96-9.15); NEUTROPHILS PERCENT AUTO 72 % (41-73); Platelet Count 395 K/mm3 (150-400); RDW Coefficient Variation 15.2 % (11.7-14.2); RDW Standard Deviation 39.1 fL (35.1-46.3); Red Blood Cell Count 6.17 M/mm3 (4.30-5.90); White Blood Cell Count 11.72 K/mm3 (4.00-11.30)
[2024-09-01 03:59] LABS: Albumin, Blood 4.1 g/dL (3.4-5.0); Bun/Creatinine Ratio 9.7 (12.0-20.0); Calcium, Blood 9.4 mg/dL (8.5-10.1); Creatinine, Blood 1.54 mg/dL (0.60-1.20); Potassium, Blood 4.2 mmol/L (3.5-5.5); Total Protein, Blood 8.1 g/dL (6.4-8.2)
[2024-09-01] MEDS ORDERED: HYDROmorphone HCl/Pf 1MG SYR IV ONE (05:10)
[2024-09-01] MEDS ORDERED: Ondansetron HCl 2 MG / ML 2ML Vial ONE (05:13)
[2024-09-01] MEDS ORDERED: Ondansetron HCl 2 MG / ML 2ML Vial IV ONE (05:25)
[2024-09-01] MEDS ORDERED: DOC250 PO (06:54)
[2024-09-01] MEDS ORDERED: OXYACE7.5T PO (06:54)
[2024-09-01 07:07] VITALS: BP 123/88
== END 2024-09-01 07:09 | disposition home or self-care (01) ==
LOC: ER 01:28
PROVIDERS: Emergency Medicine
DX: R10.9 Unspecified abdominal pain (principal)
CPT/HCPCS: 80053; 85025; 96374; 96375; 99284-25; J1171; J2405

== ENCOUNTER 2024-09-15 22:36 | Inpatient (IN) | payer OTHER ==
[~2024-09-15] VITALS: Ht 172.7 cm; Wt 86.7 kg
[~2024-09-15 22:36] MED LIST changes: +DOC250 PO; +OXYACE7.5T PO
[2024-09-15] MEDS ORDERED: ONDA8 PO (22:49)
[2024-09-15 23:00] LABS: Hematocrit 46.1 % (37.0-53.0); Hemoglobin 15.3 g/dL (13.5-17.5); Mean Corpuscular HGB 23.3 pg (26.0-34.0); Mean Corpuscular HGB Conc 33.2 g/dL (31.5-36.5); Mean Corpuscular Volume 70 fL (80-100); Mean Platelet Volume 9.7 fL (9.1-12.4); Platelet Count 213 K/mm3 (150-400); RDW Coefficient Variation 14.4 % (11.7-14.2); RDW Standard Deviation 34.9 fL (35.1-46.3); Red Blood Cell Count 6.58 M/mm3 (4.30-5.90); White Blood Cell Count 5.37 K/mm3 (4.00-11.30)
[2024-09-15 23:09] LABS: Albumin, Blood 3.9 g/dL (3.4-5.0); Albumin/Globulin Ratio 1.1 (0.8-1.8); Bilirubin, Total 2.8 mg/dL (0.1-1.0); Bun/Creatinine Ratio 15.4 (12.0-20.0); Calcium, Blood 9.6 mg/dL (8.5-10.1); Creatinine, Blood 1.88 mg/dL (0.60-1.20); Globulin, Blood 3.7 g/dL (2.2-4.0); Potassium, Blood 3.8 mmol/L (3.5-5.5); Total Protein, Blood 7.6 g/dL (6.4-8.2)
[2024-09-15 23:19] LABS: BAND PERCENT MAN 2 % (0-8); BASOPHILS PERCENT MAN 0 % (0-2); EOSINOPHILS PERCENT MAN 2 % (0-6); LYMPHOCYTES % ATYPICAL MANUAL 1 % (0-0); LYMPHOCYTES ABSOLUTE MAN 0.48 K/mm3 (0.84-5.20); LYMPHOCYTES PERCENT MAN 8 % (21-46); MONOCYTES ABSOLUTE MAN 0.05 K/mm3 (0.16-1.47); MONOCYTES PERCENT MAN 1 % (4-13); NEUTROPHILS ABSOLUTE MAN 4.72 K/mm3 (1.96-9.15); SEG NEUTROPHILS PERCENT MAN 86 % (41-73); TOTAL CELLS COUNTED 100
[2024-09-16] MEDS ORDERED: Morphine Sulfate 4 MG/1 ML Injection IV ONE (00:35)
[2024-09-16] MEDS ORDERED: Ondansetron HCl 2 MG / ML 2ML Vial IV ONE (00:35)
[2024-09-16] MEDS ORDERED: FentaNYL Citrate 50 MCG/ML 2 ML Injection IV PRN (04:25)
[2024-09-16] MEDS ORDERED: NS 1,000 ML IV SCH (04:25)
[2024-09-16] MEDS ORDERED: Ondansetron HCl 2 MG / ML 2ML Vial IV PRN ×2 (04:25→14:35)
[2024-09-16] MEDS ORDERED: FLU VACC TS2024-25(6MOS UP)/PF 45 MCG/0.5 ML SYRINGE IM ONE (04:30)
[2024-09-16 05:36] LABS: BASOPHILS ABSOLUTE AUTO 0.02 K/mm3 (0.00-0.23); BASOPHILS PERCENT AUTO 1 % (0-2); EOSINOPHILS ABSOLUTE AUTO 0.14 K/mm3 (0.00-0.68); EOSINOPHILS PERCENT AUTO 4 % (0-6); Hematocrit 44.6 % (37.0-53.0); Hemoglobin 14.4 g/dL (13.5-17.5); IMMATURE GRAN ABSOLUTE AUTO 0.03 K/mm3 (0.00-0.10); IMMATURE GRAN PERCENT AUTO 1 % (0-1); LYMPHOCYTES ABSOLUTE AUTO 0.57 K/mm3 (0.84-5.20); LYMPHOCYTES PERCENT AUTO 15 % (21-46); MONOCYTES ABSOLUTE AUTO 0.04 K/mm3 (0.16-1.47); MONOCYTES PERCENT AUTO 1 % (4-13); Mean Corpuscular HGB 22.9 pg (26.0-34.0); Mean Corpuscular HGB Conc 32.3 g/dL (31.5-36.5); Mean Corpuscular Volume 71 fL (80-100); Mean Platelet Volume 9.9 fL (9.1-12.4); NEUTROPHILS PERCENT AUTO 80 % (41-73); Platelet Count 193 K/mm3 (150-400); RDW Coefficient Variation 14.2 % (11.7-14.2); RDW Standard Deviation 35.5 fL (35.1-46.3); Red Blood Cell Count 6.29 M/mm3 (4.30-5.90)
[2024-09-16 05:40] VITALS: BP 124/93
[2024-09-16 05:57] LABS: Albumin, Blood 3.7 g/dL (3.4-5.0); Albumin/Globulin Ratio 1.1 (0.8-1.8); Bilirubin, Total 2.4 mg/dL (0.1-1.0); Bun/Creatinine Ratio 14.9 (12.0-20.0); Creatinine, Blood 1.74 mg/dL (0.60-1.20); Globulin, Blood 3.3 g/dL (2.2-4.0); Potassium, Blood 3.4 mmol/L (3.5-5.5)
[2024-09-16 07:18] VITALS: BP 113/83
[2024-09-16] MEDS ORDERED: Potassium Chl 20MEQ/Water100ML 100 ML IV SCH (07:25)
[2024-09-16] MEDS ORDERED: Lactated Ringer's 1,000 ML IV SCH (14:27)
[2024-09-16 15:18] VITALS: BP 117/85
--- NOTE | 2024-09-16 16:59 | NUR ---
A/O LAYING QUIETLY IN BED NO C/O PAIN BUT DOES HAVE SOME UNDERLYING NAUSEA. PT SO FAR REFUSED NGT AND IS EXPECTING SURGERY IN THE MORNING. DR ANGLIN INTO SEE PT TO CONFIRM THAT SURGERY AT SOME POINT TOMORROW.
--- NOTE | 2024-09-16 17:00 | NUR ---
LARGE AMOUNT OF EMESIS GREEN BILE EMESIS 500ML OUT, EXPLAINED TO PT NEED FOR NGT BUT PT REFUSED. I INFORMED THE MD AND THE MD EXPLAINED THE RISK OF ASPIRATION, PT STILL REFUSED AND IS AWARE OF RISH. I ENC PT TO GET OOB AND WALK IN DAUGHERTY, SO FAR PT HAS WALKED FOR TWICE AROUND FLOOR.
--- NOTE | 2024-09-16 17:02 | NUR ---
NEPHROSTOMY TUBE DRESSING CHANGED AND BAG CHANGED.
[2024-09-16 19:55] VITALS: BP 120/74
[2024-09-17] VITALS (17 sets, daily range): BP systolic 112–136; BP diastolic 64–91
--- NOTE | 2024-09-17 05:39 | NUR ---
SHIFT SUMMARY PATIENT SLEPT IN LONG INTERVALS, REQUIRED ZOFRAN TWICE, DECLINES NEED FOR PAIN MEDS. TELE ST @ 108. NEPHROSTOMY DRESSING REINFORCED AND OLD ADHESIVE WIPED OFF. DID HAVE ONE EMESIS DURING THE NIGHT UNMEASURED IN THE BR. LR/100ML/HR ALL NIGHT.NPO AT MIDNIGHT FOR PROBABLE SURGERY/PROCEDURE.
[2024-09-17 05:50] LABS: BASOPHILS ABSOLUTE AUTO 0.01 K/mm3 (0.00-0.23); BASOPHILS PERCENT AUTO 1 % (0-2); EOSINOPHILS ABSOLUTE AUTO 0.04 K/mm3 (0.00-0.68); EOSINOPHILS PERCENT AUTO 2 % (0-6); Hematocrit 42.4 % (37.0-53.0); Hemoglobin 13.6 g/dL (13.5-17.5); IMMATURE GRAN ABSOLUTE AUTO 0.01 K/mm3 (0.00-0.10); IMMATURE GRAN PERCENT AUTO 1 % (0-1); LYMPHOCYTES ABSOLUTE AUTO 0.64 K/mm3 (0.84-5.20); LYMPHOCYTES PERCENT AUTO 38 % (21-46); MONOCYTES ABSOLUTE AUTO 0.03 K/mm3 (0.16-1.47); MONOCYTES PERCENT AUTO 2 % (4-13); Mean Corpuscular HGB 23.3 pg (26.0-34.0); Mean Corpuscular HGB Conc 32.1 g/dL (31.5-36.5); Mean Corpuscular Volume 73 fL (80-100); NEUTROPHILS ABSOLUTE AUTO 0.95 K/mm3 (1.96-9.15); NEUTROPHILS PERCENT AUTO 57 % (41-73); Platelet Count 160 K/mm3 (150-400); RDW Coefficient Variation 14.4 % (11.7-14.2); RDW Standard Deviation 37.5 fL (35.1-46.3); Red Blood Cell Count 5.83 M/mm3 (4.30-5.90); White Blood Cell Count 1.68 K/mm3 (4.00-11.30)
[2024-09-17 06:25] LABS: Albumin, Blood 3.3 g/dL (3.4-5.0); Bilirubin, Total 2.3 mg/dL (0.1-1.0); Bun/Creatinine Ratio 14.2 (12.0-20.0); Calcium, Blood 8.8 mg/dL (8.5-10.1); Creatinine, Blood 1.48 mg/dL (0.60-1.20); Globulin, Blood 3.4 g/dL (2.2-4.0); Phosphorus, Blood 2.8 mg/dL (2.5-4.9); Potassium, Blood 3.6 mmol/L (3.5-5.5); Total Protein, Blood 6.7 g/dL (6.4-8.2)
[2024-09-17] MEDS ORDERED: Lactated Ringer's 1,000 ML IV SCH (07:55)
[2024-09-17] MEDS ORDERED: Bupivacaine 0.5% HCl 5 MG/ML 30MLVIAL ONE (08:08)
[2024-09-17] MEDS ORDERED: CeFAZolin Sodium 2,000 MG in NS 100 ML IV SCH (08:15)
[2024-09-17] MEDS ORDERED: CeFAZolin Sodium 2,000 MG VIAL ONE (08:18)
[2024-09-17] MEDS ORDERED: propofoL 20 ML IV ONE ×2 (08:30→11:59)
[2024-09-17] MEDS ORDERED: FentaNYL Citrate 50 MCG/ML 2 ML Injection ONE ×2 (08:30→10:05)
[2024-09-17] MEDS ORDERED: Ketorolac Tromethamine 30mg Vial ONE (08:31)
[2024-09-17] MEDS ORDERED: Dexamethasone Sod Phos 10 MG/ML 1ML VIAL ONE (08:31)
[2024-09-17] MEDS ORDERED: Ondansetron HCl 2 MG / ML 2ML Vial ONE (08:31)
[2024-09-17] MEDS ORDERED: Rocuronium Bromide 10 MG/ML 5ML Injection IV ONE ×2 (08:31→11:06)
[2024-09-17] MEDS ORDERED: Droperidol 5 mg/2 ml Vial IV PRN (09:00)
[2024-09-17] MEDS ORDERED: FentaNYL Citrate 50 MCG/ML 2 ML Injection IV PRN ×2 (09:00→21:25)
[2024-09-17] MEDS ORDERED: HYDROmorphone HCl/Pf 1MG SYR IV PRN ×2 (09:00→12:15)
[2024-09-17] MEDS ORDERED: Albuterol 2.5 MG/3 ML VIAL INH PRN (09:00)
[2024-09-17] MEDS ORDERED: Sugammadex Sodium 200 MG/2ML SDV (100 MG/ML) ONE (11:35)
[2024-09-17] MEDS ORDERED: HYDROmorphone HCl/Pf 1MG SYR ONE (11:45)
[2024-09-17] MEDS ORDERED: HYDROcodone 5-APAP 325 TAB PO PRN (12:15)
--- NOTE | 2024-09-17 12:56 | NUR ---
ARRIVAL PT ARRIVED TO UNIT FROM PACU. LAP SITES CDI WITH EVA. PT REPORTS PAIN TOLERABLE AND "NOTHING MORE THAN EXPECTED". 200 OF GREEN EMESIS ON ARRIVAL, PT DENIES NAUSEA BUT JUST "HAD TO THROW UP". DECLINES ANY FURTHER NAUSEA OR NEED TO VOMIT. TOLERATING SMALL AMOUNT OF ICE CHIPS AT THIS TIME. ON 2L NASAL CANULA. WILL TITRATE DOWN PATIENT WAKES UP MORE FROM ANESTHESIA. CALL LIGHT PROVIDED, PT EDUCATED ON USE. WILL CALL IF HE NEEDS ANYTHING.
--- NOTE | 2024-09-17 19:33 | NUR ---
SHIFT SUMMARY POD0 DX LAP WITH LYSIS OF ADHESIONS, A/OX4, VSS, TOLERATING PO, PAIN MANAGED WITH IV MEDICATIONS PO MEDS WERE NOT EFFECTIVE FOR HIM, TITRATED DOWN TO ROOM AIR AFTER SURGERY, 5 ABD LAP SITES WITH EXOFEN C/D/I. NO ACUTE EVENTS THIS SHIFT, CALL LIGHT IN REACH.
[2024-09-17] MEDS ORDERED: DiphenhydrAMINE HCl 50 MG Cap PO ONE (21:20)
[2024-09-18 00:16] VITALS: BP 126/91
[2024-09-18 04:30] VITALS: BP 112/75
[2024-09-18 04:40] LABS: Hematocrit 35.1 % (37.0-53.0); Hemoglobin 11.3 g/dL (13.5-17.5); Mean Corpuscular HGB 23.3 pg (26.0-34.0); Mean Corpuscular HGB Conc 32.2 g/dL (31.5-36.5); Mean Corpuscular Volume 72 fL (80-100); Mean Platelet Volume 10.6 fL (9.1-12.4); Platelet Count 138 K/mm3 (150-400); RDW Coefficient Variation 14.4 % (11.7-14.2); RDW Standard Deviation 37.6 fL (35.1-46.3); Red Blood Cell Count 4.86 M/mm3 (4.30-5.90)
[2024-09-18 04:46] LABS: White Blood Cell Count 0.63 K/mm3 (4.00-11.30)
[2024-09-18 04:56] LABS: Albumin, Blood 2.8 g/dL (3.4-5.0); Bun/Creatinine Ratio 10.9 (12.0-20.0); Creatinine, Blood 1.29 mg/dL (0.60-1.20); Globulin, Blood 2.9 g/dL (2.2-4.0); Potassium, Blood 3.4 mmol/L (3.5-5.5); Total Protein, Blood 5.7 g/dL (6.4-8.2)
--- NOTE | 2024-09-18 04:57 | NUR ---
CRITICAL LAB VALUE FOR WBC. T/C RECEIVED FROM LAB FOR CRITICAL OF 0.63. CALL PLACED TO DR. FARRELL NOTIFYING OF ABOVE LAB VALUE. HE VERBALIZED REVIEWING LABS AND PLACING ORDERS IF NEEDED. PT AFEBRILE, VSS.
[2024-09-18 05:46] LABS: BAND PERCENT MAN 6 % (0-8); BASOPHILS PERCENT MAN 0 % (0-2); EOSINOPHILS ABSOLUTE MAN 0.03 K/mm3 (0.00-0.68); EOSINOPHILS PERCENT MAN 6 % (0-6); LYMPHOCYTES % ATYPICAL MANUAL 6 % (0-0); LYMPHOCYTES ABSOLUTE MAN 0.42 K/mm3 (0.84-5.20); LYMPHOCYTES PERCENT MAN 62 % (21-46); MONOCYTES ABSOLUTE MAN 0.02 K/mm3 (0.16-1.47); MONOCYTES PERCENT MAN 4 % (4-13); NEUTROPHILS ABSOLUTE MAN 0.13 K/mm3 (1.96-9.15); SEG NEUTROPHILS PERCENT MAN 16 % (41-73); TOTAL CELLS COUNTED 50
[2024-09-18 07:38] VITALS: BP 119/76
--- NOTE | 2024-09-18 07:45 | NUR ---
SHIFT SUMMARY NOC. PT A/O X4, PT POD 1 FOR DIAGNOSTIC LAP. LAP SITES X5 ARE C/D/I. PT HAS A LEFT NEPHROSTOMY WITH DRESSING C/D/I. PT REPORTED A DROP OF BRIGHT RED BLOOD ON BEDDING DURING NIGHT. DRESSING ASSESSED AND SECURE WITHOUT ACTIVE BLEEDING. PT PLACED IN NEUTROPENIC PRECAUTIONS D/T CRITIAL WBC. PT MEDICATED FOR PAIN WITH REPORTED RELIEF OF SX. PT CALLS APPROPRIATELY, CALL LIGHT IN REACH.
[2024-09-18 14:37] VITALS: BP 113/73
[2024-09-18 16:22] VITALS: BP 112/77
--- NOTE | 2024-09-18 16:27 | NUR ---
PT REPORTS 4 UNMEASURED VOIDS THIS SHIFT. URINAL PROVIDED AND PT ENCOURAGED TO VOID IN URINAL SO OUTPUT CAN BE MEASURED.
--- NOTE | 2024-09-18 16:35 | NUR ---
SPOKE WITH DR. ISABEL MANN REGARDING INCREASED HR LOW GRADE FEVER OF 99.0 AND LOW OUTPUT FROM L NEPHROSTOMY TUBE. PT HAS HAD FREQUENT LOOSE STOOLS T/O THE DAY. PT HAS BEEN ENCOURAGED TO TAKE FLUIDS. PT REPORTS NOT FEELING WELL AND HE REPORTS FEELING COLD. PT ENCOURAGED TO VOID IN THE URINAL SO OUTPUT CAN BE MEASURED.
[2024-09-18] MEDS ORDERED: Lactated Ringer's 1,000 ML IV SCH (17:15)
[2024-09-18] MEDS ORDERED: FILGRASTIM-AYOW 480 MCG/0.8 ML 0.8MLSYR SC SCH (18:00)
[2024-09-18 19:06] VITALS: BP 136/85
--- NOTE | 2024-09-18 20:07 | NUR ---
SHIFT SUMMARY PT IS POD#1. PT HAS DECLINED PAIN MEDICATION T/O THE DAY, HE REPORTS ABD PAIN IS TOLERABLE. PT REPORTS SKIN IRRITATION R/T FREQUENT BOWEL MOVEMENTS. PT WAS PROVIDED WITH BARRIER CREAM AND EDUCATED TO USE. HE WAS ALSO ENCOURAGED TO USE A DANIEL BOTTLE AND MOIST WIPES INSTEAD OF TOILET PAPER. PT IS INDEPENDENT IN THE ROOM. HE TOLERATED A FULL LIQUID DIET UNTIL THIS EVENING WHEN HE VOMITED BUT DENIED NAUSEA T/O THE DAY. BEDSIDE REPORT GIVEN TO RODO MELARA.
--- NOTE | 2024-09-19 06:25 | NUR ---
SHIFT SUMMARY POD 2 LAP J LUIS R/T SBO. NO ACUTE CHANGES OVERNIGHT. VSS, TELE IN USE: SINUS TACH @ 103. PT REPORTS EMESIS x2 OVERNIGHT, FIRST MEASURED AND SECOND UNMEASURED, DARK GREEN IN COLOR. PT DENIES ANTI-EMETICS AT THIS TIME, OTHERWISE TOLERATING FULL LIQUID DIET. VOIDING, L NEPHROSTOMY c DARKER YELLOW OUTPUT. FREQUENT BMs, LOOSE. LAP SITE x5 c WOUND GLUE C/D/I. IND AMB. PT REPORTS PAIN TOLERABLE, DENIES NEED FOR PAIN MEDS PER EMAR. CALL LIGHT IN REACH, BED IN LOWEST POSITION, WILL REPORT TO DAY RN.
[2024-09-19 06:33] LABS: Hematocrit 36.1 % (37.0-53.0); Hemoglobin 11.8 g/dL (13.5-17.5); Mean Corpuscular HGB 22.9 pg (26.0-34.0); Mean Corpuscular HGB Conc 32.7 g/dL (31.5-36.5); Mean Corpuscular Volume 70 fL (80-100); Mean Platelet Volume 9.5 fL (9.1-12.4); Platelet Count 134 K/mm3 (150-400); RDW Coefficient Variation 14.3 % (11.7-14.2); RDW Standard Deviation 35.6 fL (35.1-46.3); Red Blood Cell Count 5.15 M/mm3 (4.30-5.90); White Blood Cell Count 1.12 K/mm3 (4.00-11.30)
[2024-09-19 07:09] LABS: Albumin/Globulin Ratio 0.8 (0.8-1.8); Bilirubin, Total 1.8 mg/dL (0.1-1.0); Bun/Creatinine Ratio 6.6 (12.0-20.0); Calcium, Blood 8.7 mg/dL (8.5-10.1); Creatinine, Blood 1.37 mg/dL (0.60-1.20); Globulin, Blood 3.6 g/dL (2.2-4.0); Potassium, Blood 3.1 mmol/L (3.5-5.5); Total Protein, Blood 6.6 g/dL (6.4-8.2)
[2024-09-19 07:29] LABS: BAND PERCENT MAN 1 % (0-8); BASOPHILS ABSOLUTE MAN 0.03 K/mm3 (0.00-0.23); BASOPHILS PERCENT MAN 3 % (0-2); EOSINOPHILS ABSOLUTE MAN 0.05 K/mm3 (0.00-0.68); EOSINOPHILS PERCENT MAN 5 % (0-6); LYMPHOCYTES ABSOLUTE MAN 0.64 K/mm3 (0.84-5.20); LYMPHOCYTES PERCENT MAN 58 % (21-46); MONOCYTES ABSOLUTE MAN 0.05 K/mm3 (0.16-1.47); MONOCYTES PERCENT MAN 5 % (4-13); NEUTROPHILS ABSOLUTE MAN 0.32 K/mm3 (1.96-9.15); SEG NEUTROPHILS PERCENT MAN 28 % (41-73); TOTAL CELLS COUNTED 100
[2024-09-19 07:34] VITALS: BP 118/77
[2024-09-19] MEDS ORDERED: Lactated Ringer's 1,000 ML IV SCH ×3 (08:15→12:25)
[2024-09-19 08:48] LABS: Magnesium, Blood 1.8 mg/dL (1.6-2.4); Phosphorus, Blood 1.3 mg/dL (2.5-4.9)
[2024-09-19] MEDS ORDERED: Metoclopramide HCl 5MG / ML 2ML Vial IV PRN (09:00)
[2024-09-19] MEDS ORDERED: Potassium Chloride 10 Meq Tablet SA PO ONE (09:00)
[2024-09-19] MEDS ORDERED: Metoclopramide HCl 5MG / ML 2ML Vial IV ONE (09:00)
[2024-09-19] MEDS ORDERED: Sodium Phosphate 30 MM in Dextrose 5% 500 ML IV STA (09:36)
[2024-09-19] MEDS ORDERED: Potassium Phosphate Dibasic 30 MM in Dextrose 5% 500 ML IV STA (10:54)
[2024-09-19] MEDS ORDERED: Enoxaparin 40 MG/0.4 ML SYR SC SCH (11:00)
--- NOTE | 2024-09-19 11:00 | NUR ---
DR. ISABEL MANN NOTIFIED OF EMESIS AFTER PT ATTEMPTED TO TAKE PO POTASSIUM, SHE ORDERED IV POTASSIUM. SHE WAS ALSO NOTIFIED THAT PT IS DECLINING SCDs RELATED TO FREQUENT BATHROOM TRIPS, LOVENOX ORDERED.
[2024-09-19 11:07] LABS: Adenovirus F 40/41 Not Detected (NOT DETECT); Astrovirus Not Detected (NOT DETECT); Campylobacter Sp Not Detected (NOT DETECT); Cryptosporidium Not Detected (NOT DETECT); Cyclospora Cayetanensis Not Detected (NOT DETECT); E. Coli O157 Not Detected (NOT DETECT); Entamoeba Histolytica Not Detected (NOT DETECT); Enteroaggregative E. coli-EAEC Not Detected (NOT DETECT); Enteropathogenic E. coli-EPEC Not Detected (NOT DETECT); Enterotoxigenic E. coli-ETEC Not Detected (NOT DETECT); Giardia Lamblia Not Detected (NOT DETECT); Norovirus GI/GII Not Detected (NOT DETECT); Plesiomonas Shigelloides Not Detected (NOT DETECT); Rotavirus A Not Detected (NOT DETECT); Salmonella Sp Not Detected (NOT DETECT); Sapovirus Not Detected (NOT DETECT); Shiga Toxin-prod E. coli-STEC Not Detected (NOT DETECT); Shigella/Enteroin E. coli-EIEC Not Detected (NOT DETECT); Vibrio Cholerae Not Detected (NOT DETECT); Vibrio Sp Not Detected (NOT DETECT); Yersinia Enterocolitica Not Detected (NOT DETECT)
[2024-09-19 14:44] VITALS: BP 120/70
--- NOTE | 2024-09-19 15:30 | NUR ---
SHIFT SUMMARY PT IS POD#2. HE HAS CONTINUED TO HAVE N/V AND DIARRHEA THIS SHIFT. DIET CHANGED TO SIPS AND ICE CHIPS. PT VOMITED X1 THIS AM. PT HAS DENIED NEED FOR PAIN MEDICATION. HE CALLS APPROPRIATELY. PT INDEPENDENT IN THE ROOM.
[2024-09-19 19:40] VITALS: BP 129/72
[2024-09-20 04:40] VITALS: BP 118/82
[2024-09-20 05:08] LABS: Hematocrit 37.1 % (37.0-53.0); Mean Corpuscular HGB Conc 32.3 g/dL (31.5-36.5); Mean Corpuscular Volume 71 fL (80-100); Mean Platelet Volume 10.1 fL (9.1-12.4); Platelet Count 162 K/mm3 (150-400); RDW Coefficient Variation 14.1 % (11.7-14.2); RDW Standard Deviation 35.5 fL (35.1-46.3); Red Blood Cell Count 5.22 M/mm3 (4.30-5.90); White Blood Cell Count 1.11 K/mm3 (4.00-11.30)
--- NOTE | 2024-09-20 05:09 | NUR ---
NOC SUMMARY- PT HAS BEEN RESTING QUIETLY. PT REPORTS LIQUID STOOLS CONTINUE. PT DENIES PAIN. PT HAS NOT HAD ANY EPISODES OF NAUSEA OR VOMITING. PT HAS BEEN USING ICE CHIPS MAINLY. PT VOIDING AND NEPHROSTOMY DRAINING. PT LAP SITES OPEN TO AIR. CALL LIGHT IN REACH.
[2024-09-20 05:32] LABS: BAND PERCENT MAN 6 % (0-8); BASOPHILS PERCENT MAN 0 % (0-2); EOSINOPHILS ABSOLUTE MAN 0.02 K/mm3 (0.00-0.68); EOSINOPHILS PERCENT MAN 2 % (0-6); LYMPHOCYTES % ATYPICAL MANUAL 4 % (0-0); LYMPHOCYTES ABSOLUTE MAN 0.79 K/mm3 (0.84-5.20); LYMPHOCYTES PERCENT MAN 68 % (21-46); METAMYELOCYTE ABSOLUTE MAN 0.02 K/mm3 (0.00-0.00); METAMYELOCYTE PERCENT MAN 2 % (0-0); MONOCYTES ABSOLUTE MAN 0.04 K/mm3 (0.16-1.47); MONOCYTES PERCENT MAN 4 % (4-13); NEUTROPHILS ABSOLUTE MAN 0.22 K/mm3 (1.96-9.15); SEG NEUTROPHILS PERCENT MAN 14 % (41-73); TOTAL CELLS COUNTED 50
[2024-09-20 05:45] LABS: Albumin/Globulin Ratio 0.8 (0.8-1.8); Bilirubin, Total 1.4 mg/dL (0.1-1.0); Bun/Creatinine Ratio 5.2 (12.0-20.0); Creatinine, Blood 1.34 mg/dL (0.60-1.20); Globulin, Blood 3.6 g/dL (2.2-4.0); Phosphorus, Blood 2.1 mg/dL (2.5-4.9); Total Protein, Blood 6.6 g/dL (6.4-8.2)
[2024-09-20] MEDS ORDERED: Potassium Phosphate Dibasic 30 MM in Dextrose 5% 500 ML IV STA (06:51)
[2024-09-20 07:24] VITALS: BP 119/72
[2024-09-20] MEDS ORDERED: Lactated Ringer's 1,000 ML IV SCH (10:20)
[2024-09-20] MEDS ORDERED: Thiamine HCl 100 MG in NS 50 ML IV ONE (11:35)
[2024-09-20 14:52] VITALS: BP 122/87
--- NOTE | 2024-09-20 15:17 | NUR ---
TO HAND OFF REPORT TO JOSE ALBERTO MELARA. NO ACUTE CHANGE FOR THE SHIFT PT STILL CONTINUES TO HAVE BOUTS OF SMALL LOOSE BMS, DIET RESTARTED TO CLEAR LIQUID TOLERATED ON SMALL AMOUNT, DIDNT HAVE PROBLEMS WITH JELLO AND APPLE JUICE THIS MORNING, PT REPORTED THROWING UP AFTER LUNCH, PT DIDNT REPORT NAUSEA PT STATED ITS MORE PRESSURE IN ABDOMEN, EDUCATED TO TAKE SMALL SIPS FOR NOW. ALSO OFFERED NAUSEA MEDS BEFORE DINNER PT AGREED. OTHERWISE PT HAS BEEN INDEPENDENT IN THE ROOM, CALLS APPROPRIATELY, VITALS HAS BEEN STABLE. ABD XRAY DONE THIS MORNING PROVIDER TO REVIEW REPORT. LR RUNNING AT 150MLS/HR, POTASSIUM PHOS FINISHED INFUSING. WILL REPORT TO JOSE ALBERTO MELARA
--- NOTE | 2024-09-20 18:20 | NUR ---
REPORT RECIEVED FROM SARITHA OVALLES AND I ASSUMED CARE AT ABOUT 1520. UPON ASSESSMENT PT IS IN NO VISABLE DISTRESS. A/O. DENIES ANY NEEDS AT THIS TIME AND WOULD LIKE TO REST. SURGICAL SITES ARE WNL, NEPHROSTOMY BAG EMPTIED. SEE OUTPUT RESULTS. PT MEDICATED FOR NAUSEA AT ABOUT 1740. NO ACUTE CONCERNS AT THIS TIME, PT USING CALL LIGHT.
[2024-09-20 22:33] VITALS: BP 102/58
[2024-09-20 22:40] VITALS: BP 118/79
--- NOTE | 2024-09-21 00:59 | NUR ---
CALL PLACED TO HOSPITALIST. T/C PLACED TO HOSPITALIST REGARDING HEART RATE IN 120S AND TEMP 99.3. PT REPORTS HAVING ABD PRESSURE BUT DENIES PAIN. PT REPORTED MULTIPLE LOOSE STOOLS T/O THE DAY. PT HAS EVENTS OF HEART RATE GOING TO 150S ON EXERTION. DENIES SOB OR CHEST PAIN. NEW ORDERS RECEIVED FOR LR BOLUS AND MAINTENENCE FLUIDS.
[2024-09-21] MEDS ORDERED: Lactated Ringer's 1,000 ML IV SCH ×2 (01:00→09:00)
[2024-09-21] MEDS ORDERED: Lactated Ringer's 500 ML IV ONE ×2 (01:00→05:30)
[2024-09-21 04:50] VITALS: BP 124/80
[2024-09-21 05:01] LABS: Hematocrit 38.3 % (37.0-53.0); Hemoglobin 12.4 g/dL (13.5-17.5); Mean Corpuscular HGB 22.9 pg (26.0-34.0); Mean Corpuscular HGB Conc 32.4 g/dL (31.5-36.5); Mean Corpuscular Volume 71 fL (80-100); Platelet Count 172 K/mm3 (150-400); RDW Coefficient Variation 14.5 % (11.7-14.2); RDW Standard Deviation 35.5 fL (35.1-46.3); Red Blood Cell Count 5.42 M/mm3 (4.30-5.90)
[2024-09-21 05:05] LABS: White Blood Cell Count 0.77 K/mm3 (4.00-11.30)
--- NOTE | 2024-09-21 05:30 | NUR ---
CRITICAL LAB WBC 0.77. CALL RECEIVED FROM LAB. CALL PLACED TO DR. FARRELL RE ABOVE. PT HAD IMPROVEMENT OF HEART RATE AFTER BOLUS, HAS RETURNED TO 110S, TEMP 99.6. NEW ORDERS RECEIVED TO BOLUS 500ML OF LR.
[2024-09-21 05:32] LABS: Albumin/Globulin Ratio 0.8 (0.8-1.8); Bilirubin, Total 1.5 mg/dL (0.1-1.0); Bun/Creatinine Ratio 3.5 (12.0-20.0); Calcium, Blood 9.1 mg/dL (8.5-10.1); Creatinine, Blood 1.44 mg/dL (0.60-1.20); Globulin, Blood 3.9 g/dL (2.2-4.0); Magnesium, Blood 1.8 mg/dL (1.6-2.4); Phosphorus, Blood 2.6 mg/dL (2.5-4.9); Potassium, Blood 3.2 mmol/L (3.5-5.5); Total Protein, Blood 6.9 g/dL (6.4-8.2)
[2024-09-21 06:19] LABS: BASOPHILS ABSOLUTE MAN 0.02 K/mm3 (0.00-0.23); BASOPHILS PERCENT MAN 3 % (0-2); EOSINOPHILS ABSOLUTE MAN 0.03 K/mm3 (0.00-0.68); EOSINOPHILS PERCENT MAN 5 % (0-6); LYMPHOCYTES ABSOLUTE MAN 0.46 K/mm3 (0.84-5.20); LYMPHOCYTES PERCENT MAN 60 % (21-46); METAMYELOCYTE PERCENT MAN 1 % (0-0); MONOCYTES ABSOLUTE MAN 0.13 K/mm3 (0.16-1.47); MONOCYTES PERCENT MAN 18 % (4-13); MYELOCYTE ABSOLUTE MAN 0.01 K/mm3 (0.00-0.00); MYELOCYTE PERCENT MAN 2 % (0-0); NEUTROPHILS ABSOLUTE MAN 0.07 K/mm3 (1.96-9.15); SEG NEUTROPHILS PERCENT MAN 10 % (41-73); TOTAL CELLS COUNTED 100
[2024-09-21 06:20] LABS: BLASTS PERCENT MAN 1 % (0-0)
[2024-09-21] MEDS ORDERED: Potassium Chl 20MEQ/Water100ML 100 ML IV SCH (07:15)
[2024-09-21 07:16] VITALS: BP 114/75
--- NOTE | 2024-09-21 07:25 | NUR ---
SHIFT SUMMARY NOC. PT A/O X4, PT POD 4 FROM DIAGNOSTIC LAP. PT TOLERATING CLEAR LIQUIDS. PT VOIDING URINE AND HAVING MULTIPLE LIQUID BMS. PT HAS BEEN TACHYCARDIC AND HAS LOW GRADE TEMP. HOSPITALIST AWARE. PT HAD TWO 500ML LR FLUID BOLUS THIS SHIFT. TELEMETRY INTACT. PT INDEPENDENT IN THE ROOM, CALLS APPROPRIATLY. CALL LIGHT IN REACH.
[2024-09-21] MEDS ORDERED: LevoFLOXacin 500MG/D5W 100ML 100 ML IV SCH (07:30)
[2024-09-21] MEDS ORDERED: Thiamine HCl 100 MG Tab PO SCH (09:00)
[2024-09-21] MEDS ORDERED: Psyllium 1 EA Pack PO SCH (12:00)
[2024-09-21] MEDS ORDERED: Scopolamine Hydrobromide Patch TOP SCH (12:00)
[2024-09-21] MEDS ORDERED: Banana Flakes/Tos 1 EA Powder Pack PO SCH (12:00)
[2024-09-21] MEDS ORDERED: TPN Consult Notification XX ONE (13:30)
[2024-09-21 14:06] LABS: Triglycerides 51 mg/dL (30-140)
[2024-09-21 14:19] VITALS: BP 115/69
--- NOTE | 2024-09-21 16:47 | NUR ---
SHIFT SUMMARY POD 4 LYSIS OF ADHESIONS. PT REMAINS UNABLE TO TOLERATE ANYTHING MORE THAN WATER. WILL HAVE BOUTS OF EMESIS WITH ANY INTAKE BESIDES WATER. CONTINUES TO REFUSE NAUSEA MEDS AT THIS TIME WHEN OFFERED. SCOPALAMINE PATCH IN PLACE. CURRENTLY HAVING PICC LINE PLACED FOR TPN. PT AGREEABLE AND HOPEFUL SOME NUTRITION MIGHT HELP HIM FEEL BETTER. FREQUENT SMALL LIQUID STOOLS. PT REPORTS GREEN IN COLOR. DENIES PAIN DURING SHIFT. LAP SITES REMAIN CDI.
[2024-09-21] MEDS ORDERED: Parenteral Electolytes 40 ML,Potassium Phosphate Dibasic 30 MM,Multivitamins 10 ML,ZINC... IV SCH (17:00)
[2024-09-21] MEDS ORDERED: Acetaminophen 500 MG Tab PO PRN (19:40)
[2024-09-21 20:19] VITALS: BP 120/79
[2024-09-21] MEDS ORDERED: Protein Supplement 30 ML UD PO SCH (21:00)
[2024-09-21] MEDS ORDERED: Cefepime HCl 2,000 MG in NS 100 ML IV SCH (22:00)
[2024-09-21 22:54] VITALS: BP 118/75
[2024-09-22 04:43] VITALS: BP 116/69
[2024-09-22 07:10] LABS: Albumin, Blood 2.7 g/dL (3.4-5.0); Albumin/Globulin Ratio 0.8 (0.8-1.8); Bilirubin, Total 1.9 mg/dL (0.1-1.0); Bun/Creatinine Ratio 7.5 (12.0-20.0); Calcium, Blood 8.9 mg/dL (8.5-10.1); Creatinine, Blood 1.34 mg/dL (0.60-1.20); Globulin, Blood 3.6 g/dL (2.2-4.0); Magnesium, Blood 1.8 mg/dL (1.6-2.4); Phosphorus, Blood 2.1 mg/dL (2.5-4.9); Potassium, Blood 3.4 mmol/L (3.5-5.5); Prealbumin, Blood 14.6 mg/dL (20.0-40.0); Total Protein, Blood 6.3 g/dL (6.4-8.2)
[2024-09-22] MEDS ORDERED: Potassium Phosphate Dibasic 30 MM in Dextrose 5% 500 ML IV STA (07:16)
[2024-09-22] MEDS ORDERED: Potassium Phosphate Dibasic 20 MM in Dextrose 5% 500 ML IV STA (07:17)
[2024-09-22 07:29] VITALS: BP 127/79
[2024-09-22 07:39] LABS: Hematocrit 34.4 % (37.0-53.0); Hemoglobin 11.4 g/dL (13.5-17.5); Mean Corpuscular HGB 23.3 pg (26.0-34.0); Mean Corpuscular HGB Conc 33.1 g/dL (31.5-36.5); Mean Corpuscular Volume 70 fL (80-100); Mean Platelet Volume 9.7 fL (9.1-12.4); NRBC ABSOLUTE 0.02 K/mm3 (0.00-0.02); NRBC Auto 1.3 /100 WBC (0.0-0.2); Platelet Count 131 K/mm3 (150-400); RDW Coefficient Variation 14.6 % (11.7-14.2)
[2024-09-22] MEDS ORDERED: NS 250 ML IV PRN (07:40)
[2024-09-22 08:04] LABS: BAND PERCENT MAN 4 % (0-8); BASOPHILS ABSOLUTE MAN 0.03 K/mm3 (0.00-0.23); BASOPHILS PERCENT MAN 2 % (0-2); BLASTS PERCENT MAN 2 % (0-0); EOSINOPHILS ABSOLUTE MAN 0.12 K/mm3 (0.00-0.68); EOSINOPHILS PERCENT MAN 8 % (0-6); LYMPHOCYTES ABSOLUTE MAN 0.96 K/mm3 (0.84-5.20); LYMPHOCYTES PERCENT MAN 60 % (21-46); METAMYELOCYTE ABSOLUTE MAN 0.03 K/mm3 (0.00-0.00); METAMYELOCYTE PERCENT MAN 2 % (0-0); MONOCYTES ABSOLUTE MAN 0.16 K/mm3 (0.16-1.47); MONOCYTES PERCENT MAN 10 % (4-13); MYELOCYTE ABSOLUTE MAN 0.09 K/mm3 (0.00-0.00); MYELOCYTE PERCENT MAN 6 % (0-0); NEUTROPHILS ABSOLUTE MAN 0.16 K/mm3 (1.96-9.15); SEG NEUTROPHILS PERCENT MAN 6 % (41-73); TOTAL CELLS COUNTED 50
--- NOTE | 2024-09-22 08:04 | NUR ---
SHIFT SUMMARY NOC. PT POD 5 FOR J LUIS AND DIAGNOSTIC LAP. PT A/OX4, PT NAUSEOUS AT TIMES, HAD 1 UNMEASURED EMESIS THIS SHIFT. PT VOIDING URINE AND ONLY TOLERATING CLEAR LIQUIDS AT THIS TIME. PT IN NEUTROPENIC PRECAUTIONS. PT HAD ELEVATED TEMP AT TIMES DURING SHIFT AND NEW ORDERS RECEIVED FOR TYLENOL. THIS WAS EFFECTIVE IN REDUCING TEMP. PT MAKES NEEDS KNOWN, CALL LIGHT IN REACH.
[2024-09-22] MEDS ORDERED: Multivitamins 1 Tab PO SCH (09:00)
--- NOTE | 2024-09-22 09:55 | NUR ---
IMAGING: PT CT COMPLETED. WILL MONITOR FOR RESULTS.
[2024-09-22] MEDS ORDERED: MethylPREDNISolone Sod Succ 125 MG Vial IV SCH (12:00)
[2024-09-22 14:44] VITALS: BP 133/67
--- NOTE | 2024-09-22 19:25 | NUR ---
PT HAS BEEN STABLE AND AFEBRILE THIS SHIFT. PT REPORTS NO PAIN. PT CONT TO HAVE NAUSEA WITH ANY PO INTAKE. CURRENTLY TOLERATING ICE CHIPS. CONT TPN ORDERED. CT OF ABD REPEATED THIS AM. ECHO COMPLETED. PENDING BLOOD CULTURES. CONT IV ABX. PT WALKS HALLWAYS FREQUENTLY. INDEP TOP BATHROOM. FREQUENT GREEN LIQUID STOOLS. NEPHROSTOMY DRAINING CLEAR URINE. PT ALSO VOIDS WITH URINAL. USES CALL LIGHT APPROPRIATELY NEEDED. PT FLAT AFFECT AND DEPRESSED MOOD. OFFERED TO TAKE HIM OUTSIDE TODAY WELL HAVE THE THERAPY DOG VISIT, HOWEVER HE DECLINED.
[2024-09-22 19:50] VITALS: BP 121/80
--- NOTE | 2024-09-22 22:38 | NUR ---
REPORT GIVE TO ADELINA BUCK TO ASSUME CARE OF PT AT THIS TIME.
--- NOTE | 2024-09-22 23:34 | NUR ---
ASSUMED CARE OF PT @ 2200. PT SITTING ON EOB,FINIHING HIS BATH. ASSISTED WITH WIPING HIS BACK AND GOWN SNAPS AND TIE. PT DENIES OTHER NEEDS OR CONCERNS.
[2024-09-23 00:48] VITALS: BP 119/78
[2024-09-23 04:37] VITALS: BP 121/79
--- NOTE | 2024-09-23 06:11 | NUR ---
AAOX4, INDEPENDENT IN ROOM. REINFORCED NEPHROSTOMY DRESSING TO L FLANK D/T DRESSING ROLLING UP AND UNCOMFORTABLE. SKIN IS RED AND IRRITATED UNDER DRESSING. PT REPORTS HE HAS SUPPLIES COMING TO HIS HOUSE AND BROTHER HELPS WITH DRESSING CHANGES BUT DRESSING CHANGE EDUCATION MIGHT BE NEEDED FROM OUT PATIENT SERVICES. PT DID NOT SLEPT MUCH LAST NIGHT.
[2024-09-23 06:20] LABS: Magnesium, Blood 2.1 mg/dL (1.6-2.4); Phosphorus, Blood 2.8 mg/dL (2.5-4.9)
[2024-09-23 06:46] LABS: Hematocrit 35.6 % (37.0-53.0); Hemoglobin 11.9 g/dL (13.5-17.5); Mean Corpuscular HGB 23.4 pg (26.0-34.0); Mean Corpuscular HGB Conc 33.4 g/dL (31.5-36.5); Mean Corpuscular Volume 70 fL (80-100); Mean Platelet Volume 9.7 fL (9.1-12.4); NRBC ABSOLUTE 0.02 K/mm3 (0.00-0.02); NRBC Auto 0.3 /100 WBC (0.0-0.2); Platelet Count 165 K/mm3 (150-400); RDW Coefficient Variation 14.8 % (11.7-14.2); RDW Standard Deviation 36.1 fL (35.1-46.3); Red Blood Cell Count 5.09 M/mm3 (4.30-5.90); White Blood Cell Count 6.22 K/mm3 (4.00-11.30)
[2024-09-23 07:15] LABS: BAND PERCENT MAN 15 % (0-8); BASOPHILS PERCENT MAN 0 % (0-2); BLASTS PERCENT MAN 1 % (0-0); EOSINOPHILS ABSOLUTE MAN 0.24 K/mm3 (0.00-0.68); EOSINOPHILS PERCENT MAN 4 % (0-6); LYMPHOCYTES PERCENT MAN 21 % (21-46); METAMYELOCYTE ABSOLUTE MAN 0.31 K/mm3 (0.00-0.00); METAMYELOCYTE PERCENT MAN 5 % (0-0); MONOCYTES ABSOLUTE MAN 1.18 K/mm3 (0.16-1.47); MONOCYTES PERCENT MAN 19 % (4-13); MYELOCYTE ABSOLUTE MAN 0.24 K/mm3 (0.00-0.00); MYELOCYTE PERCENT MAN 4 % (0-0); NEUTROPHILS ABSOLUTE MAN 2.86 K/mm3 (1.96-9.15); SEG NEUTROPHILS PERCENT MAN 31 % (41-73); TOTAL CELLS COUNTED 100
[2024-09-23 07:40] VITALS: BP 120/75
[2024-09-23 15:42] VITALS: BP 104/72
[2024-09-23 19:24] VITALS: BP 116/77
--- NOTE | 2024-09-23 19:41 | NUR ---
SHIFT SUMMARY PT IS POD5 FOR LYSIS OF ADHESIONS. PT IS A/OX4, IND TO BATHROOM, CONTINUES TO HAVE LOOSE GREEN STOOLS. VOIDING APPROPRIATELY, NEPHROSTOMY DRAINING YELLOW URINE, DRESSING INTACT TO L FLANK. TPN RUNNING AT ORDERED RATE, PICC LINE PATENT, PT DENIES PAIN AND N/V. DRESSINGS TO ABD C/D/I. PT TOLERATING SMALL AMNTS OF CLS. CURRENTLY RESTING PEACEFULLY W/ CALL LIGHT IN REACH.
[2024-09-24 04:25] VITALS: BP 119/71
[2024-09-24 06:11] LABS: Hematocrit 36.9 % (37.0-53.0); Mean Corpuscular HGB 23.2 pg (26.0-34.0); Mean Corpuscular HGB Conc 32.5 g/dL (31.5-36.5); Mean Corpuscular Volume 71 fL (80-100); NRBC ABSOLUTE 0.03 K/mm3 (0.00-0.02); NRBC Auto 0.3 /100 WBC (0.0-0.2); Platelet Count 193 K/mm3 (150-400); RDW Coefficient Variation 15.1 % (11.7-14.2); RDW Standard Deviation 37.8 fL (35.1-46.3); Red Blood Cell Count 5.18 M/mm3 (4.30-5.90); White Blood Cell Count 10.24 K/mm3 (4.00-11.30)
[2024-09-24 06:32] LABS: Albumin/Globulin Ratio 0.8 (0.8-1.8); Bilirubin, Total 0.8 mg/dL (0.1-1.0); Bun/Creatinine Ratio 16.8 (12.0-20.0); Calcium, Blood 9.1 mg/dL (8.5-10.1); Creatinine, Blood 1.13 mg/dL (0.60-1.20); Magnesium, Blood 2.3 mg/dL (1.6-2.4); Phosphorus, Blood 3.2 mg/dL (2.5-4.9); Potassium, Blood 3.5 mmol/L (3.5-5.5)
--- NOTE | 2024-09-24 06:36 | NUR ---
PT EXPERIENCED X1 EMESIS EPISODE WITH 400CC OF GREEN BILE OUT. ZOFRAN GIVEN WITH GOOD RELIEF. PT REPORTED TO HAVE SEVERAL BOWEL MOVEMENTS THROUGHOUT NIGHT. REPORTING TO BE TRANSITIONING FROM GREEN TO YELLOW IN COLOR. PT CONTINUES TO RECIEVE TPN THROUGH PICC. NO FURTHER QUESTIONS OR CONCERNS AT THIS TIME.
[2024-09-24 06:58] LABS: BAND PERCENT MAN 14 % (0-8); BASOPHILS PERCENT MAN 0 % (0-2); EOSINOPHILS PERCENT MAN 0 % (0-6); LYMPHOCYTES ABSOLUTE MAN 1.63 K/mm3 (0.84-5.20); LYMPHOCYTES PERCENT MAN 16 % (21-46); METAMYELOCYTE PERCENT MAN 4 % (0-0); MONOCYTES ABSOLUTE MAN 1.02 K/mm3 (0.16-1.47); MONOCYTES PERCENT MAN 10 % (4-13); MYELOCYTE ABSOLUTE MAN 0.81 K/mm3 (0.00-0.00); MYELOCYTE PERCENT MAN 8 % (0-0); NEUTROPHILS ABSOLUTE MAN 6.24 K/mm3 (1.96-9.15); PROMYELOCYTE PERCENT MAN 1 % (0-0); SEG NEUTROPHILS PERCENT MAN 47 % (41-73); TOTAL CELLS COUNTED 100
[2024-09-24 07:35] VITALS: BP 121/82
[2024-09-24 15:17] VITALS: BP 111/78
[2024-09-24] MEDS ORDERED: Cefepime HCl 2,000 MG in NS 100 ML IV SCH (16:00)
--- NOTE | 2024-09-24 17:11 | NUR ---
SUMMARY NO ACUTE CHANGES T/O SHIFT. MEDICATED ONCE DURING SHIFT WITH ZOFRAN FOR NAUSEA. PT DRANK ENSURE CLEAR AND CARTON OF MILK THIS AFTERNOON. INDEPENDENT IN ROOM. CALL LIGHT IN REACH.
[2024-09-24 19:45] VITALS: BP 127/89
[2024-09-25 04:26] VITALS: BP 115/74
[2024-09-25 06:40] LABS: Hematocrit 36.8 % (37.0-53.0); Hemoglobin 11.9 g/dL (13.5-17.5); Mean Corpuscular HGB 23.2 pg (26.0-34.0); Mean Corpuscular HGB Conc 32.3 g/dL (31.5-36.5); Mean Corpuscular Volume 72 fL (80-100); Mean Platelet Volume 9.9 fL (9.1-12.4); NRBC Auto 0.8 /100 WBC (0.0-0.2); Platelet Count 173 K/mm3 (150-400); RDW Coefficient Variation 15.5 % (11.7-14.2); Red Blood Cell Count 5.14 M/mm3 (4.30-5.90); White Blood Cell Count 12.91 K/mm3 (4.00-11.30)
[2024-09-25 07:06] LABS: Albumin/Globulin Ratio 0.8 (0.8-1.8); Bun/Creatinine Ratio 17.1 (12.0-20.0); Creatinine, Blood 1.17 mg/dL (0.60-1.20); Globulin, Blood 3.9 g/dL (2.2-4.0); Magnesium, Blood 2.3 mg/dL (1.6-2.4); Phosphorus, Blood 3.2 mg/dL (2.5-4.9); Potassium, Blood 3.8 mmol/L (3.5-5.5); Total Protein, Blood 6.9 g/dL (6.4-8.2)
--- NOTE | 2024-09-25 07:32 | NUR ---
SUMMARY PT REPORTS HAD 2 BMS THIS SHIFT.
[2024-09-25 07:53] VITALS: BP 119/80
[2024-09-25 09:06] LABS: BASOPHILS PERCENT MAN 0 % (0-2); BLASTS PERCENT MAN 1 % (0-0); EOSINOPHILS PERCENT MAN 0 % (0-6); LYMPHOCYTES ABSOLUTE MAN 2.32 K/mm3 (0.84-5.20); LYMPHOCYTES PERCENT MAN 18 % (21-46); METAMYELOCYTE ABSOLUTE MAN 0.77 K/mm3 (0.00-0.00); METAMYELOCYTE PERCENT MAN 6 % (0-0); MONOCYTES ABSOLUTE MAN 1.29 K/mm3 (0.16-1.47); MONOCYTES PERCENT MAN 10 % (4-13); MYELOCYTE ABSOLUTE MAN 0.64 K/mm3 (0.00-0.00); MYELOCYTE PERCENT MAN 5 % (0-0); NEUTROPHILS ABSOLUTE MAN 7.35 K/mm3 (1.96-9.15); PROMYELOCYTE ABSOLUTE MAN 0.38 K/mm3 (0.00-0.00); PROMYELOCYTE PERCENT MAN 3 % (0-0); SEG NEUTROPHILS PERCENT MAN 57 % (41-73); TOTAL CELLS COUNTED 100
[2024-09-25] MEDS ORDERED: TPN Consult Notification XX ONE (13:55)
[2024-09-25 15:04] VITALS: BP 118/77
[2024-09-25] MEDS ORDERED: Parenteral Electolytes 40 ML,Potassium Phosphate Dibasic 30 MM,Multivitamins 10 ML,ZINC... IV SCH (17:00)
--- NOTE | 2024-09-25 17:48 | NUR ---
SHIFT SUMMARY PT REPORTS LESS BOWEL MOVEMENTS TODAY AND A BETTER TOLERANCE OF HIS DIET. HE HAS BEEN ABLE TO EAT SOME REGULAR FOOD. SPIRITS ARE MUCH BETTER TODAY, PT MAKING JOKES WITH STAFF. LOOKING FORWARD TO ADVANCING DIET. VOIDING USING URINAL. NEPHROSTOMY REMAINS PATENT AND DRAINING. CPN INFUSING PER EMAR.
[2024-09-25 19:50] VITALS: BP 115/74
[2024-09-26 03:51] VITALS: BP 120/81
[2024-09-26 06:12] LABS: Hematocrit 36.7 % (37.0-53.0); Hemoglobin 11.9 g/dL (13.5-17.5); Mean Corpuscular HGB 23.3 pg (26.0-34.0); Mean Corpuscular HGB Conc 32.4 g/dL (31.5-36.5); Mean Corpuscular Volume 72 fL (80-100); NRBC Auto 0.6 /100 WBC (0.0-0.2); Platelet Count 177 K/mm3 (150-400); RDW Coefficient Variation 15.5 % (11.7-14.2); RDW Standard Deviation 38.9 fL (35.1-46.3)
[2024-09-26 06:35] LABS: Albumin/Globulin Ratio 0.8 (0.8-1.8); Bilirubin, Total 0.8 mg/dL (0.1-1.0); Bun/Creatinine Ratio 17.9 (12.0-20.0); Calcium, Blood 9.2 mg/dL (8.5-10.1); Creatinine, Blood 1.17 mg/dL (0.60-1.20); Globulin, Blood 3.8 g/dL (2.2-4.0); Potassium, Blood 3.8 mmol/L (3.5-5.5); Total Protein, Blood 6.8 g/dL (6.4-8.2)
--- NOTE | 2024-09-26 06:36 | NUR ---
SHIFT SUMMARY NO ACUTE CHANGES THIS SHIFT. AOX4. JOKING MOOD T/O NIGHT. VSS. DENIES PAIN, N/V OR DYSPNEA. POD 9 LAP LYSIS OF ADHESIONS. x5 ABD LAP SITES C/D/I, NO DRAINAGE. PT REPORTING ONLY 2 BM THIS SHIFT. TOLERATING DIET. L NEPHROSOTOMY W/CLEAR LIGHT YELLOW URINE. PT IND IN RM. CALL LIGHT IN REACH.
[2024-09-26 06:46] LABS: BAND PERCENT MAN 5 % (0-8); BASOPHILS ABSOLUTE MAN 0.15 K/mm3 (0.00-0.23); BASOPHILS PERCENT MAN 1 % (0-2); BLASTS PERCENT MAN 3 % (0-0); EOSINOPHILS ABSOLUTE MAN 0.15 K/mm3 (0.00-0.68); EOSINOPHILS PERCENT MAN 1 % (0-6); LYMPHOCYTES ABSOLUTE MAN 0.78 K/mm3 (0.84-5.20); LYMPHOCYTES PERCENT MAN 5 % (21-46); METAMYELOCYTE ABSOLUTE MAN 0.62 K/mm3 (0.00-0.00); METAMYELOCYTE PERCENT MAN 4 % (0-0); MONOCYTES PERCENT MAN 9 % (4-13); MYELOCYTE ABSOLUTE MAN 0.93 K/mm3 (0.00-0.00); MYELOCYTE PERCENT MAN 6 % (0-0); NEUTROPHILS ABSOLUTE MAN 10.92 K/mm3 (1.96-9.15); PROMYELOCYTE ABSOLUTE MAN 0.15 K/mm3 (0.00-0.00); PROMYELOCYTE PERCENT MAN 1 % (0-0); SEG NEUTROPHILS PERCENT MAN 65 % (41-73); TOTAL CELLS COUNTED 100
[2024-09-26 07:28] VITALS: BP 121/78
[2024-09-26 14:56] VITALS: BP 110/67
--- NOTE | 2024-09-26 16:16 | NUR ---
SHIFT SUMMARY TPN STOPPED TODAY DURING SHIFT. PT TO TRY FULL LIQUIDS ONCE MORE FOR DINNER AND IF HE DOES WELL WANTS TO ADVANCE TO REGULAR DIET FOR BREAKFAST. REMAINS IND IN ROOM, INCISIONS CDI. DENIES PAIN OR NAUSEA. LAP SITES CDI.
--- NOTE | 2024-09-26 16:21 | NUR ---
MET WITH PATIENT. HE WAS RESTIN AT THE TIME OF MY VISIT. HE REPORTED THAT HE IS FEELING BETTER AND SHOULD BE DISCHARGING HOME SOON. HE EXPRESSED THAT HE IS VERY TIRED AND REQUESTED THAT I COME BACK AT ANOTHER TIME.
[2024-09-26 19:20] VITALS: BP 114/78
[2024-09-27 05:40] VITALS: BP 122/79
--- NOTE | 2024-09-27 06:38 | NUR ---
SHIFT SUMMARY PT HAS RESTED T/O THE NIGHT. DENIES NEEDS MOST TIMES DURING NURSE ROUNDS. PT INDEPENDENT IN THE ROOM. PT HAS BEEN TOLERATING A FULL LIQUID DIET. NO N/V. ABD SOFT, NO COMPAINTS OF PAIN. PT LOOKING FORWARD TO HAVING HIS DIET ADVANCED TODAY. PLAN OF CARE UNCHANGED. BED IN LOWEST POSITION, CALL LIGHT WITHIN REACH.
[2024-09-27 07:10] VITALS: BP 126/83
[2024-09-27] MEDS ORDERED: BANATROL PLUS1 EAC1 PO (15:13)
[2024-09-27] MEDS ORDERED: METAMUCIL POWD798 GM (15:14)
[2024-09-27 15:17] VITALS: BP 111/71
--- NOTE | 2024-09-27 18:21 | NUR ---
DISCHARGE: PACKET PRINTED AND PT EDUCATED. IV DC'D WNL, TIP INTACT. PICC LINE DC'D BY JAYA GURERA. RN. PT LEFT UNIT VIA WHEELCHAIR AT 1820
== END 2024-09-27 18:20 | disposition home or self-care (01) | DRG 329 ==
LOC: ER 22:36 → SURS 09-16 04:23 → MEDS 09-16 04:23 → SURS 09-17 10:34
PROVIDERS: Emergency Medicine; Family Medicine; Hospitalist; Surgery; ADMIT Internal Medicine
PROC: 0DN84ZZ Release Small Intestine, Percutaneous Endoscopic Approach (ICD-10-PCS; 2024-09-17)
PROC: 3E0336Z Introduction of Nutritional Substance into Peripheral Vein, Percutaneous Approach (ICD-10-PCS; 2024-09-17)
PROC: 0D1 Gastrointestinal System, Bypass (ICD-10-PCS; principal; 2024-09-17 08:30)
DX: K56.600 Partial intestinal obstruction, unspecified as to cause (principal); E43 Unspecified severe protein-calorie malnutrition; C78.6 Secondary malignant neoplasm of retroperitoneum and peritoneum; R65.10 Systemic inflammatory response syndrome (SIRS) of non-infectious origin without acute organ dysfunction; E87.1 Hypo-osmolality and hyponatremia; C18.6 Malignant neoplasm of descending colon; K52.1 Toxic gastroenteritis and colitis; F84.0 Autistic disorder; N13.1 Hydronephrosis with ureteral stricture, not elsewhere classified; N17.9 Acute kidney failure, unspecified; Z68.1 Body mass index [BMI] 19.9 or less, adult; D70.2 Other drug-induced agranulocytosis; D70.9 Neutropenia, unspecified; K76.0 Fatty (change of) liver, not elsewhere classified; N18.30 Chronic kidney disease, stage 3 unspecified; M67.40 Ganglion, unspecified site; R50.81 Fever presenting with conditions classified elsewhere; K82.8 Other specified diseases of gallbladder; F32.A Depression, unspecified; D63.1 Anemia in chronic kidney disease; E87.6 Hypokalemia; E83.39 Other disorders of phosphorus metabolism; T45.1X5A Adverse effect of antineoplastic and immunosuppressive drugs, initial encounter; Z98.890 Other specified postprocedural states; Z79.899 Other long term (current) drug therapy
CPT/HCPCS: 36415; 36569; 74019; 74177; 80053; 83605; 83690; 83735; 84100; 84134; 84478; 85025; 87040; 87507; 93005; 93010; 93306; 94760; 94762; 96374-59; 96375; 99285-25; A9270; C1751; J0690; J0692; J1100; J1171; J1650; J1885; J1956; J2270; J2405; J2704; J2765; J2919; J3010; J3411; J3480; J7030; J7050; J7060; J7120; Q5125; Q9967

== ENCOUNTER 2024-10-06 07:53 | Emergency (ER) | payer OTHER ==
[~2024-10-06] VITALS: Ht 172.7 cm; Wt 79.4 kg
[~2024-10-06 07:53] MED LIST changes: +BANATROL PLUS1 EAC1 PO; +METAMUCIL POWD798 GM; +ONDA8 PO
[2024-10-06] MEDS ORDERED: Ondansetron HCl 2 MG / ML 2ML Vial IV PRN (08:25)
[2024-10-06 08:42] LABS: BASOPHILS PERCENT AUTO 1 % (0-2); EOSINOPHILS ABSOLUTE AUTO 0.03 K/mm3 (0.00-0.68); EOSINOPHILS PERCENT AUTO 0 % (0-6); Hematocrit 40.4 % (37.0-53.0); Hemoglobin 13.3 g/dL (13.5-17.5); IMMATURE GRAN ABSOLUTE AUTO 0.05 K/mm3 (0.00-0.10); IMMATURE GRAN PERCENT AUTO 1 % (0-1); LYMPHOCYTES ABSOLUTE AUTO 1.46 K/mm3 (0.84-5.20); LYMPHOCYTES PERCENT AUTO 15 % (21-46); MONOCYTES ABSOLUTE AUTO 0.96 K/mm3 (0.16-1.47); MONOCYTES PERCENT AUTO 10 % (4-13); Mean Corpuscular HGB 23.8 pg (26.0-34.0); Mean Corpuscular HGB Conc 32.9 g/dL (31.5-36.5); Mean Corpuscular Volume 72 fL (80-100); Mean Platelet Volume 10.1 fL (9.1-12.4); NEUTROPHILS ABSOLUTE AUTO 7.04 K/mm3 (1.96-9.15); NEUTROPHILS PERCENT AUTO 73 % (41-73); Platelet Count 324 K/mm3 (150-400); RDW Coefficient Variation 18.2 % (11.7-14.2); RDW Standard Deviation 42.1 fL (35.1-46.3); White Blood Cell Count 9.64 K/mm3 (4.00-11.30)
[2024-10-06 09:05] LABS: Albumin, Blood 3.6 g/dL (3.4-5.0); Albumin/Globulin Ratio 0.9 (0.8-1.8); Bilirubin, Total 1.2 mg/dL (0.1-1.0); Bun/Creatinine Ratio 9.8 (12.0-20.0); Calcium, Blood 9.7 mg/dL (8.5-10.1); Creatinine, Blood 1.63 mg/dL (0.60-1.20); Globulin, Blood 3.8 g/dL (2.2-4.0); Potassium, Blood 3.1 mmol/L (3.5-5.5); Total Protein, Blood 7.4 g/dL (6.4-8.2)
[2024-10-06] MEDS ORDERED: Metoclopramide HCl 5MG / ML 2ML Vial IV ONE ×2 (10:55→12:30)
[2024-10-06] MEDS ORDERED: Polyethylene Glycol 3350 17 gm PO ONE (12:30)
[2024-10-06] MEDS ORDERED: Bisacodyl 10 MG Supp PR ONE (14:00)
[2024-10-06] MEDS ORDERED: NS 1,000 ML IV SCH (14:00)
[2024-10-06] MEDS ORDERED: Ondansetron HCl 2 MG / ML 2ML Vial IV ONE (14:00)
[2024-10-06] MEDS ORDERED: METO10 PO ×2 (16:08→16:09)
[2024-10-06 16:20] VITALS: BP 130/82
== END 2024-10-06 16:21 | disposition home or self-care (01) ==
LOC: ER 07:53
PROVIDERS: Student in an Organized Health Care Education/Training Program
DX: K56.609 Unspecified intestinal obstruction, unspecified as to partial versus complete obstruction (principal); K59.00 Constipation, unspecified; Z79.899 Other long term (current) drug therapy
CPT/HCPCS: 74177; 80053; 83690; 85025; 96361; 96374-59; 96375; 96376; 99284-25; A9270; J2405; J2765; J7030; Q9967

== ENCOUNTER 2024-10-18 13:07 | Inpatient (IN) | payer OTHER ==
[~2024-10-18] VITALS: Ht 172.7 cm; Wt 74.4 kg
[~2024-10-18 13:07] MED LIST changes: +METO10 PO
[2024-10-18] MEDS ORDERED: Ondansetron HCl 2 MG / ML 2ML Vial IV ONE (14:30)
[2024-10-18] MEDS ORDERED: NS 1,000 ML IV SCH ×3 (14:30→20:30)
[2024-10-18 14:45] LABS: BASOPHILS ABSOLUTE AUTO 0.04 K/mm3 (0.00-0.23); BASOPHILS PERCENT AUTO 0 % (0-2); EOSINOPHILS ABSOLUTE AUTO 0.11 K/mm3 (0.00-0.68); EOSINOPHILS PERCENT AUTO 1 % (0-6); Hematocrit 45.5 % (37.0-53.0); Hemoglobin 15.4 g/dL (13.5-17.5); IMMATURE GRAN ABSOLUTE AUTO 0.04 K/mm3 (0.00-0.10); IMMATURE GRAN PERCENT AUTO 0 % (0-1); LYMPHOCYTES ABSOLUTE AUTO 0.96 K/mm3 (0.84-5.20); LYMPHOCYTES PERCENT AUTO 10 % (21-46); MONOCYTES ABSOLUTE AUTO 0.86 K/mm3 (0.16-1.47); MONOCYTES PERCENT AUTO 9 % (4-13); Mean Corpuscular HGB 24.1 pg (26.0-34.0); Mean Corpuscular HGB Conc 33.8 g/dL (31.5-36.5); Mean Corpuscular Volume 71 fL (80-100); Mean Platelet Volume 10.7 fL (9.1-12.4); NEUTROPHILS ABSOLUTE AUTO 7.43 K/mm3 (1.96-9.15); NEUTROPHILS PERCENT AUTO 79 % (41-73); Platelet Count 316 K/mm3 (150-400); RDW Coefficient Variation 19.1 % (11.7-14.2); RDW Standard Deviation 43.6 fL (35.1-46.3); Red Blood Cell Count 6.39 M/mm3 (4.30-5.90); White Blood Cell Count 9.44 K/mm3 (4.00-11.30)
[2024-10-18 16:34] LABS: Magnesium, Blood 2.2 mg/dL (1.6-2.4)
[2024-10-18 16:39] LABS: Albumin, Blood 3.2 g/dL (3.4-5.0); Albumin/Globulin Ratio 0.9 (0.8-1.8); Bilirubin, Total 2.3 mg/dL (0.1-1.0); Bun/Creatinine Ratio 9.2 (12.0-20.0); Calcium, Blood 9.1 mg/dL (8.5-10.1); Creatinine, Blood 3.71 mg/dL (0.60-1.20); Globulin, Blood 3.7 g/dL (2.2-4.0); Phosphorus, Blood 5.6 mg/dL (2.5-4.9); Potassium, Blood 3.4 mmol/L (3.5-5.5); Total Protein, Blood 6.9 g/dL (6.4-8.2)
[2024-10-18] MEDS ORDERED: Potassium Chl 20MEQ/Water100ML 100 ML IV SCH (20:30)
[2024-10-18] MEDS ORDERED: Ondansetron HCl 2 MG / ML 2ML Vial IV PRN (20:30)
[2024-10-18] MEDS ORDERED: Bisacodyl 10 MG Supp PR ONE (21:00)
[2024-10-18 22:03] VITALS: BP 111/80
[2024-10-19 01:56] LABS: Source, Urine Clean Catch
[2024-10-19 02:12] VITALS: BP 124/84
[2024-10-19 02:13] LABS: Bilirubin, Urine Neg (Neg); Blood, Urine Neg (Neg); Glucose Qualitative, Urine Neg (Neg); Ketones, Urine 2+ (Neg); Leukocyte Esterase, Urine Neg (Neg); Nitrite, Urine Neg (Neg); Protein, Urine 1+ (Neg); Specific Gravity, Urine 1.005 (1.003-1.022); Urobilinogen, Urine NORM (Normal)
[2024-10-19 02:48] LABS: Appearance, Urine Clear (Clear); Color, Urine Yellow (P-Yellow)
--- NOTE | 2024-10-19 04:36 | NUR ---
SHIFT SUMMARY 39 YR M ADMITTED ON 10/18/24. FULL CODE. NO ACUTE CHANGES THIS SHIFT. PT IS CURRENTLY INFUSING POTASSIUM CHLORIDE AND NS. HE HAS NO C/O PAIN OR DISCOMFORT. HE HAS NOT HAD ANY N/V BUT ASKED FOR A "BARF BAG" JUST IN CASE. HE IS A&O X 4 AND IS INDEPENDANT IN THE ROOM. HE IS A&O X 4 AND IS PLEASANT AND COOPERATIVE WITH CARE. BED IN LOW POSITION AND CALL LIGHT IN REACH.
[2024-10-19 05:20] LABS: BASOPHILS ABSOLUTE AUTO 0.06 K/mm3 (0.00-0.23); BASOPHILS PERCENT AUTO 1 % (0-2); EOSINOPHILS ABSOLUTE AUTO 0.31 K/mm3 (0.00-0.68); EOSINOPHILS PERCENT AUTO 4 % (0-6); Hematocrit 41.9 % (37.0-53.0); Hemoglobin 13.3 g/dL (13.5-17.5); IMMATURE GRAN ABSOLUTE AUTO 0.03 K/mm3 (0.00-0.10); IMMATURE GRAN PERCENT AUTO 0 % (0-1); LYMPHOCYTES ABSOLUTE AUTO 1.19 K/mm3 (0.84-5.20); LYMPHOCYTES PERCENT AUTO 17 % (21-46); MONOCYTES ABSOLUTE AUTO 0.78 K/mm3 (0.16-1.47); MONOCYTES PERCENT AUTO 11 % (4-13); Mean Corpuscular HGB 23.5 pg (26.0-34.0); Mean Corpuscular HGB Conc 31.7 g/dL (31.5-36.5); Mean Corpuscular Volume 74 fL (80-100); Mean Platelet Volume 9.5 fL (9.1-12.4); NEUTROPHILS PERCENT AUTO 67 % (41-73); Platelet Count 284 K/mm3 (150-400); RDW Coefficient Variation 18.3 % (11.7-14.2); Red Blood Cell Count 5.65 M/mm3 (4.30-5.90); White Blood Cell Count 7.17 K/mm3 (4.00-11.30)
[2024-10-19 05:53] LABS: Albumin, Blood 3.1 g/dL (3.4-5.0); Albumin/Globulin Ratio 0.9 (0.8-1.8); Bilirubin, Total 1.9 mg/dL (0.1-1.0); Calcium, Blood 9.2 mg/dL (8.5-10.1); Creatinine, Blood 2.4 mg/dL (0.60-1.20); Globulin, Blood 3.6 g/dL (2.2-4.0); Magnesium, Blood 2.4 mg/dL (1.6-2.4); Potassium, Blood 4.4 mmol/L (3.5-5.5); Total Protein, Blood 6.7 g/dL (6.4-8.2)
[2024-10-19 07:47] VITALS: BP 113/81
[2024-10-19 07:51] LABS: Percent Saturation 16.3 % (20.0-50.0)
[2024-10-19] MEDS ORDERED: Bisacodyl 5 MG TabEC PO PRN (09:10)
--- NOTE | 2024-10-19 09:40 | NUR ---
ASSUMED CARE OF PATIENT. SITTING UP IN BED c NS RUNNING DURING SHIFT-CHANGE REPORT. PROVIDED WITH ICE CHIPS.
[2024-10-19] MEDS ORDERED: NS 1,000 ML IV SCH (10:10)
[2024-10-19] MEDS ORDERED: Scopolamine Hydrobromide Patch TOP SCH (10:55)
[2024-10-19 15:56] VITALS: BP 123/79
[2024-10-19 16:23] LABS: Eosinophils-Raw #,Urine 0; White Blood Cells Urine Rare /hpf (0-5)
--- NOTE | 2024-10-19 18:27 | NUR ---
END OF SHIFT SUMMARY: A&Ox4. PLEASANT AND COOPERATIVE WITH CARE. CALLS APPROPRIATELY AND IS ABLE TO ADVOCATE NEEDS EFFECTIVELY. INDEPENDENT WITHIN ROOM. CONTINENT OF BOWEL AND BLADDER. NEPHROSTOMY PATENT AND DRAINING TO GRAVITY. LBM TODAY. SOME NAUSEA/VOMITING; REGRESSED TO CLEAR LIQUID DIET. NO ? PAIN OR DISOCMFORT OUTSIDE OF NAUSEA. TRANSDERM SCOPE ORDERED AND PLACED ON LEFT NECK/BELOW EAR. NS @ 150mL/hr. BED IN LOWEST POSITION, CALL LIGHT WITHIN REACH, ALL NEEDS MET. REPORT TO ONCOMING NURSE.
[2024-10-19 20:25] VITALS: BP 141/90
[2024-10-20 02:55] VITALS: BP 139/83
[2024-10-20 06:03] LABS: BASOPHILS ABSOLUTE AUTO 0.05 K/mm3 (0.00-0.23); BASOPHILS PERCENT AUTO 1 % (0-2); EOSINOPHILS ABSOLUTE AUTO 0.27 K/mm3 (0.00-0.68); EOSINOPHILS PERCENT AUTO 6 % (0-6); Hematocrit 38.8 % (37.0-53.0); Hemoglobin 12.3 g/dL (13.5-17.5); IMMATURE GRAN ABSOLUTE AUTO 0.02 K/mm3 (0.00-0.10); IMMATURE GRAN PERCENT AUTO 0 % (0-1); LYMPHOCYTES ABSOLUTE AUTO 1.09 K/mm3 (0.84-5.20); LYMPHOCYTES PERCENT AUTO 24 % (21-46); MONOCYTES ABSOLUTE AUTO 0.64 K/mm3 (0.16-1.47); MONOCYTES PERCENT AUTO 14 % (4-13); Mean Corpuscular HGB 23.6 pg (26.0-34.0); Mean Corpuscular HGB Conc 31.7 g/dL (31.5-36.5); Mean Corpuscular Volume 75 fL (80-100); NEUTROPHILS ABSOLUTE AUTO 2.56 K/mm3 (1.96-9.15); NEUTROPHILS PERCENT AUTO 55 % (41-73); Platelet Count 242 K/mm3 (150-400); RDW Coefficient Variation 17.3 % (11.7-14.2); RDW Standard Deviation 46.3 fL (35.1-46.3); Red Blood Cell Count 5.21 M/mm3 (4.30-5.90); White Blood Cell Count 4.63 K/mm3 (4.00-11.30)
--- NOTE | 2024-10-20 06:30 | NUR ---
SHIFT SUMMARY 39 YR M ADMITTED ON 10/19/24. FULL CODE. PT CONTINUES TO VOMIT THROUGHOUT THE NIGHT. HE STATES THAT ANTI EMETIC MEDS DO NOT WORK FOR HIM. HE HAS NO C/O PAIN OR DISCOMFORT. HE IS PLEASANT AND COOPERATIVE WITH CARE. INDEPENDANT IN THE ROOM. BED IN LOW POSITION AND CALL LIGHT IN REACH.
[2024-10-20 06:43] LABS: Albumin, Blood 3.2 g/dL (3.4-5.0); Albumin/Globulin Ratio 0.9 (0.8-1.8); Bilirubin, Total 1.6 mg/dL (0.1-1.0); Bun/Creatinine Ratio 10.8 (12.0-20.0); Calcium, Blood 9.4 mg/dL (8.5-10.1); Creatinine, Blood 1.57 mg/dL (0.60-1.20); Globulin, Blood 3.4 g/dL (2.2-4.0); Potassium, Blood 3.5 mmol/L (3.5-5.5); Total Protein, Blood 6.6 g/dL (6.4-8.2)
[2024-10-20 07:26] VITALS: BP 119/75
[2024-10-20] MEDS ORDERED: Metoclopramide HCl 5MG / ML 2ML Vial IV PRN (07:30)
[2024-10-20] MEDS ORDERED: Docusate Sodium 100 MG Cap PO SCH (09:00)
[2024-10-20] MEDS ORDERED: Sod Ferric Gluc Complx/Sucrose 125 MG in NS 100 ML IV SCH (09:00)
[2024-10-20] MEDS ORDERED: Mag Hydrox/Al Hydrox/Simeth 18 ML,Lidocaine 2% Viscous Soln 9 ML,Atropine/Scopalam/Hyos... PO ONE (09:45)
[2024-10-20] MEDS ORDERED: MethylPREDNISolone Sod Succ 40 MG VIAL IV SCH (10:00)
[2024-10-20 15:49] VITALS: BP 125/77
--- NOTE | 2024-10-20 18:04 | NUR ---
SHIFT SUMMARY PT CONT LEVEL OF CARE. PT A&OX4 AND INDEPENDENT IN ROOM. PT NOTED TO BE NAUSEATED AND VOMITING THIS SHIFT. PRN MEDICATION ADMINISTERED WITH NO EFFECTIVENESS NOTED PHYSICAN AWARE. SURGICAL TEAM CLEARED PT OF NEEDED SURGICAL INTERVENTION THIS SHIFT. PHYSICAN NOTED THAT IF PT CAN NOT HOLD DOWN NUTRITION HE WILL LIKELY NEED IV NUTRITION. WCTM
[2024-10-20 19:22] VITALS: BP 134/71
[2024-10-21 03:47] VITALS: BP 130/75
--- NOTE | 2024-10-21 04:29 | NUR ---
SHIFT SUMMARY 39 YR M ADMITTED ON 10/18/24. FULL CODE. NO ACUTE CHANGES THIS SHIFT. PT STATES HE HAS VOMITED A LITTLE LESS THIS SHIFT. NO REQUESTS FOR ANTIEMETICS THIS SHIFT. HE IS A&O X 4 AND INDEPENDANT IN THE ROOM. NO C/O PAIN OR DISCOMFORT. CONTINUOUS NS @ 150. NOTHING NEW TO REPORT. BED IN LOW POSITION AND CALL LIGHT IN REACH.
[2024-10-21 04:57] LABS: BASOPHILS ABSOLUTE AUTO 0.02 K/mm3 (0.00-0.23); BASOPHILS PERCENT AUTO 0 % (0-2); EOSINOPHILS ABSOLUTE AUTO 0.05 K/mm3 (0.00-0.68); EOSINOPHILS PERCENT AUTO 1 % (0-6); Hematocrit 39.4 % (37.0-53.0); Hemoglobin 12.6 g/dL (13.5-17.5); IMMATURE GRAN ABSOLUTE AUTO 0.04 K/mm3 (0.00-0.10); IMMATURE GRAN PERCENT AUTO 1 % (0-1); LYMPHOCYTES ABSOLUTE AUTO 0.92 K/mm3 (0.84-5.20); LYMPHOCYTES PERCENT AUTO 12 % (21-46); MONOCYTES ABSOLUTE AUTO 0.85 K/mm3 (0.16-1.47); MONOCYTES PERCENT AUTO 11 % (4-13); Mean Corpuscular HGB 23.8 pg (26.0-34.0); Mean Corpuscular Volume 75 fL (80-100); Mean Platelet Volume 9.8 fL (9.1-12.4); NEUTROPHILS ABSOLUTE AUTO 5.68 K/mm3 (1.96-9.15); NEUTROPHILS PERCENT AUTO 75 % (41-73); Platelet Count 264 K/mm3 (150-400); RDW Coefficient Variation 17.3 % (11.7-14.2); RDW Standard Deviation 45.7 fL (35.1-46.3); Red Blood Cell Count 5.29 M/mm3 (4.30-5.90); White Blood Cell Count 7.56 K/mm3 (4.00-11.30)
[2024-10-21 05:20] LABS: Albumin, Blood 3.3 g/dL (3.4-5.0); Albumin/Globulin Ratio 0.9 (0.8-1.8); Bilirubin, Total 1.1 mg/dL (0.1-1.0); Bun/Creatinine Ratio 8.7 (12.0-20.0); Calcium, Blood 9.7 mg/dL (8.5-10.1); Creatinine, Blood 1.27 mg/dL (0.60-1.20); Globulin, Blood 3.7 g/dL (2.2-4.0); Magnesium, Blood 1.9 mg/dL (1.6-2.4); Phosphorus, Blood 2.4 mg/dL (2.5-4.9); Potassium, Blood 3.2 mmol/L (3.5-5.5)
[2024-10-21 07:17] VITALS: BP 129/83
[2024-10-21] MEDS ORDERED: Potassium Phosphate Dibasic 10 MM in Dextrose 5% 250 ML IV SCH (08:00)
[2024-10-21] MEDS ORDERED: Bisacodyl 10 MG Supp PR PRN (09:35)
[2024-10-21] MEDS ORDERED: TPN Consult Notification XX ONE (11:30)
[2024-10-21] MEDS ORDERED: Potassium Chl 10MEQ/Water100ML 100 ML IV SCH (12:00)
[2024-10-21 16:16] VITALS: BP 121/76
[2024-10-21 16:34] LABS: Bun/Creatinine Ratio 7.4 (12.0-20.0); Calcium, Blood 9.6 mg/dL (8.5-10.1); Creatinine, Blood 1.36 mg/dL (0.60-1.20); Potassium, Blood 3.4 mmol/L (3.5-5.5)
[2024-10-21] MEDS ORDERED: Parenteral Electolytes 40 ML,Potassium Phosphate Dibasic 30 MM,Multivitamins 10 ML,Thia... IV SCH (17:00)
--- NOTE | 2024-10-21 19:05 | NUR ---
REPORT RECEIVED VERIFIED. PT AT BEDSIDE VOMITING, NO C/O PAIN JUST CONSTIPATION, PT ENC TO REST BOWEL, AND SUPPOSITORY WAS OFFERED WITH SOME SUCCESS OF SOME SMALL ROCK LIKE STOOL. PT IS INDEPENDANT IN ROOM AND MAKE HIS NEEDS KNOWN.
--- NOTE | 2024-10-21 19:07 | NUR ---
PPN STARTED TODAY, SO FAR PT JUDAH WELL. PT QUIETLY LAYING IN BED AND WANTS TO SLEEP, FLAT AFFECT AND NOT INTERESTED IN ENGAGING IN CONVERSATION.
[2024-10-21 19:39] VITALS: BP 121/84
[2024-10-22 02:28] VITALS: BP 120/86
[2024-10-22 05:07] LABS: Hematocrit 46.1 % (37.0-53.0)
--- NOTE | 2024-10-22 05:10 | NUR ---
SHIFT SUMMARY PT DENIES NAUSEA, DENIES NEED FOR A NAUSEA MEDICATIONS. PT VOMITED AT ONCE>800MLS LIGHT BROWN EMESIS. THIS OCCURED TWICE DURING THIS SHIFT. PPN INFUSING ORDERED. PT REPORTS SOME PO INTAKE/CLEAR LIQUID DIET. PT IS A/O X4, ABLE TO MAKE HIS NEEDS KNOWN AND COOPERATIVE WITH CARE. NO ACUTE EVENTS DURING THIS SHIFT. BED AT THE LOWEST POSITION, CALL LIGHT WITHIN REACH.LEFT NEPHROSTOMY BAG>100MLS TEA COLOR OUTPUT DURING THIS SHIFT. PT DENIES PAIN.
[2024-10-22 05:28] LABS: Anion Gap 10 mmol/L (3-11); Blood Urea Nitrogen 15 mg/dL (8-24); Bun/Creatinine Ratio 10.6 (12.0-20.0); CO2, Blood 34 mmol/L (21-32); Calcium, Blood 10.7 mg/dL (8.5-10.1); Chloride, Blood 93 mmol/L (98-108); Creatinine, Blood 1.42 mg/dL (0.60-1.20); Glomerular Filtration Rate 65 (60-); Glucose, Blood 115 mg/dL (70-99); Magnesium, Blood 2.3 mg/dL (1.6-2.4); Phosphorus, Blood 3.7 mg/dL (2.5-4.9); Potassium, Blood 3.2 mmol/L (3.5-5.5); Sodium, Blood 134 mmol/L (136-145); Triglycerides 87 mg/dL (30-140)
[2024-10-22] MEDS ORDERED: Potassium Chloride 40 MEQ in NS 250 ML IV ONE (06:45)
[2024-10-22 07:42] VITALS: BP 111/80
[2024-10-22 15:52] VITALS: BP 112/81
--- NOTE | 2024-10-22 18:11 | NUR ---
SO SIGNIFICANT CHANGES IN PT CONDITION, PT STILL IS NOT ABLE TO JUDAH PO FLUIDS, PT HAS TRIED TO KEEP NURITION DOWN BUT KEEPS VOMITING. XRAY DONE TO ABD SHOWING NO CONSTIPATION. I SPOKE TO PT ABOUT MASS IN STOMACH BUT PT DIDNT SEE TO UNDERSTAND WHAT I WAS SAYING. I ENC PT TO GET UP AND WALK AROUND AND PT WENT TO AMBULATE IN DAUGHERTY. POWER GLIDE WAS PLACED TO LEFT UPPER ARM. PPN INFUSING
[2024-10-22 21:35] VITALS: BP 121/85
--- NOTE | 2024-10-23 03:58 | NUR ---
SHIFT SUMMARY NO PO INTAKE DURING THIS SHIFT. ORDER IS CLEAR LIQUID DIET. PT HAD ONE EPISODE OF VOMITING>1LITER, LIGHT GREENISH COLOR EMESIS. PT DENIES PAIN AND DISCOMFORT. PPN INFUSING ORDERED. NO ACUTE EVENTS DURING THIS SHIFT. LEFT NEPHROSTOMY OUTPUT MINIMAL. PT VOIDING INTO URINAL DURING THIS SHIFT, DARK TEA COLOR OUTPUT. BED AT THE LOWEST POSITION, CALL LIGHT WITHIN REACH. PT IS ABLE TO MAKE HIS NEEDS KNOWN AND IS COOPERATIVE WITH CARE.
[2024-10-23 05:07] VITALS: BP 114/82
[2024-10-23 06:23] LABS: Magnesium, Blood 2.6 mg/dL (1.6-2.4)
[2024-10-23 06:24] LABS: Calcium, Blood 10.8 mg/dL (8.5-10.1); Creatinine, Blood 1.53 mg/dL (0.60-1.20); Potassium, Blood 3.1 mmol/L (3.5-5.5)
[2024-10-23 07:45] VITALS: BP 117/86
[2024-10-23] MEDS ORDERED: NS 1,000 ML IV SCH (09:00)
[2024-10-23] MEDS ORDERED: TPN Consult Notification XX ONE (09:55)
--- NOTE | 2024-10-23 14:03 | NUR ---
REPORT RECEIVED VERIFIED, A/O X4 LAYING QUIETLY IN BED. NO C/O NAUSEA BUT PT DOES C/O FULLNESS TO UPPER ABD AND THEN STARTS TO VOMIT. MD AT BEDSIDE , CT ORDERED FOR PT. PPN INFUSING TO LEFT UPPER ARM.
--- NOTE | 2024-10-23 14:05 | NUR ---
[address]
[2024-10-23 14:45] VITALS: BP 110/82
[2024-10-23] MEDS ORDERED: SODIUM ACETATE IV SCH (17:00)
[2024-10-23] MEDS ORDERED: THIAMINE HCL IV SCH (17:00)
[2024-10-23] MEDS ORDERED: [UNRECOGNIZED DRUG - OTHER] IV SCH (17:00)
[2024-10-23] MEDS ORDERED: SODIUM CHLORIDE IV SCH (17:00)
--- NOTE | 2024-10-23 19:06 | NUR ---
pt laying quietly in bed states he doesnt have any c/o pain and no nausea but is still uncomfortable and is holding all liquids right now.
[2024-10-23 21:13] VITALS: BP 112/83
--- NOTE | 2024-10-24 03:56 | NUR ---
SHIFT SUMMARY NO ACUTE EVENTS DURING THIS SHIFT. PPN INFUSING ORDERED. @0400 PT GOING FOR STATES "I GOT BORED, GOING FOR A WALK". MINIMAL OUTPUT FROM LEFT NEPHROSTOMY BAG<50MLS. PT USING URINAL, REDDISH COLOR URINE>1L. NO PO INTAKE PER PT REPORT. PT DENIES HAVING N/V. PT DENIES PAIN. BED AT THE LOWEST POSITION, CALL LIGHT WITHIN REACH. PT IS A&O X4, ABLE TO MAKE HIS NEEDS KNOWN AND COOPERATIVE WITH CARE.
[2024-10-24 04:33] VITALS: BP 102/87
[2024-10-24 06:11] LABS: Bun/Creatinine Ratio 21.4 (12.0-20.0); Calcium, Blood 10.2 mg/dL (8.5-10.1); Creatinine, Blood 1.4 mg/dL (0.60-1.20); Phosphorus, Blood 2.8 mg/dL (2.5-4.9)
[2024-10-24 07:42] VITALS: BP 95/69
[2024-10-24] MEDS ORDERED: TPN Consult Notification XX ONE (11:15)
--- NOTE | 2024-10-24 12:58 | NUR ---
CONTACTED DR JUAREZ REGARDING PATIENT BILE EMESIS 1000ML. PATIENT HAS BEEN SEEN BY DR TALBERT PENDING KALIE ISSA WITH RADIOLOGY TO BE COMPLETED.
[2024-10-24] MEDS ORDERED: SODIUM ACETATE 40 MEQ IV SCH (17:00)
[2024-10-24] MEDS ORDERED: POTASSIUM CHLORIDE IV SCH (17:00)
[2024-10-24] MEDS ORDERED: [UNRECOGNIZED DRUG - OTHER] IV SCH (17:00)
[2024-10-24] MEDS ORDERED: SODIUM CHLORIDE IV SCH (17:00)
--- NOTE | 2024-10-24 17:00 | NUR ---
SHIFT REPORT: PATIENT A/O X 4. PATIENT HAS PPN RUNNING AT 120/HR WITH IV POWERGLIDE IN LEFT UPPER ARM WITH SECONDARY IV IN LEFT A/C. PATIENT HAD SWOLLOW STUDY DONE TO DAY FOR SMALL BOWEL AND RADIATION ONCOLOGY CONSULTED. DR HUSAIN OFFICE TO COME TO COME TALK TO PATIENT REGARDING RESULTS. PATIENT IS INDEPENDENT IN ROOM AND ABLE TO CALL FOR ANY NEEDS.
[2024-10-24 21:07] VITALS: BP 108/84
[2024-10-25 02:10] VITALS: BP 122/82
--- NOTE | 2024-10-25 06:23 | NUR ---
Shift Summary No acute changes. Pt did have at least one episode of emesis, he declines anti emetics. He is independent in the room and manages his own nephrostomy tube. Rcving TPN at 130 ml/hr.
[2024-10-25 06:48] LABS: Bun/Creatinine Ratio 22.9 (12.0-20.0); Calcium, Blood 10.3 mg/dL (8.5-10.1); Creatinine, Blood 1.53 mg/dL (0.60-1.20); Magnesium, Blood 2.2 mg/dL (1.6-2.4); Phosphorus, Blood 2.5 mg/dL (2.5-4.9); Potassium, Blood 3.3 mmol/L (3.5-5.5)
[2024-10-25 07:09] VITALS: BP 100/86
[2024-10-25] MEDS ORDERED: LORazepam 2 MG/ML 1ML Injection IV PRN (11:30)
[2024-10-25] MEDS ORDERED: Scopolamine Hydrobromide Patch TOP SCH (11:30)
[2024-10-25 15:38] VITALS: BP 109/84
--- NOTE | 2024-10-25 16:18 | NUR ---
SHIFT SUMMARY: PATIENT A/O X 4. PATIENT HAS IV POWERGLIDE IN LEFT UPPER ARM INFUSING PPN AND IV IN LEFT AC. PATIENT HAS HAD NO ACUTE CHANGES THIS SHIFT AND IS INDEPENDENT IN ROOM. PATIENT HAS NEPHROSTOMY TUBE WHICH IS DRAINING YELLOW URINE. PATIENT DRAINS HIS OWN BAG WITHOUT CALLING FOR ASSISTANCE. PATIENT HAS CALL LIGHT AT SIDE AND ABLE TO CALL FOR ASSISTANCE.
[2024-10-25 19:42] VITALS: BP 108/84
[2024-10-26 05:57] VITALS: BP 113/83
--- NOTE | 2024-10-26 06:46 | NUR ---
AAO X 4, INDEPENDENT IN ROOM. AWAKE MOST OF THE NIGHT. AMUBLATED IN HALLWAY X3. EMISIS X1, 1000ML AND DENIED INTERVENTION. STATED NO NAUSEA, MORE PRESSURE RELATED. l NEPHROSTOMY IN PLACE, PT MANAGES PLAN IS AWAITING FOR DR. TALBERT TO CORDINATE POSSIBLE SURGERY IN [place]
[2024-10-26 07:06] LABS: Bun/Creatinine Ratio 27.7 (12.0-20.0); Calcium, Blood 10.1 mg/dL (8.5-10.1); Creatinine, Blood 1.48 mg/dL (0.60-1.20); Magnesium, Blood 2.3 mg/dL (1.6-2.4); Phosphorus, Blood 1.9 mg/dL (2.5-4.9); Potassium, Blood 3.7 mmol/L (3.5-5.5)
[2024-10-26 08:18] VITALS: BP 114/87
[2024-10-26] MEDS ORDERED: TPN Consult Notification XX ONE (13:05)
--- NOTE | 2024-10-26 15:28 | NUR ---
GOALS OF CARE - JOINT VISIT WITH DR. JUAREZ DELAYED ENTRY FROM 10/25/24 ROMELIA WAS A/O X4. PLEASANT, WITHDRAWN AND DISPLAYING SIGNS OF AGGITATION. PT REPORTS N/V MOMENTS PRIOR TO THIS VISIT. PROVIDER ORDERED LORAZEPAM FOR SYMPTOM MANAGEMENT OF N/V AND ANXITY. PT REPORTED NAUSEA SUBSIDED AFTER LORAZEPAM ADMINISTRATION. PROVIDER REVIEWED RECOMMENDATIONS FROM ONCOLOGY AND GEN. SURGERY CONSULTATIONS WITH ROMELIA. UNFORTUNATLY ALL CURRATIVE MEASURES HAVE BEEN EXHAUSED. PROVIDER ADVISED HE WAS WAITING FOR DR. TALBERT'S FOLLOW UP THE AFTERNOON OF 10/25/24 FOR ANY POSSIBLE PALLIATIVE MEASURES. ROMELIA WISHES TO REMAIN A FULL CODE AND FULL TREATMENT UNTIL DR. TALBERT SEES PT AT END OF CLINIC DAY 10/25/24. PT IS AT THE BARGINING STAGE OF [place]. WITH EDUCATION FROM PROVIDER AND THIS PC RN RE: END STAGE DISEASE PROCESS, ROMELIA STATES, "THERE HAS TO BE SOME KIND OF SURGERY OR SOMETHING THAT CAN STILL BE DONE." IN SEPTEMBER 2024, PT HAD A SBO REQUIRING INTERVENTION. PT UNDERWENT A BYPASS OF THE SBO FOR PALLIATIVE, SYMPTOM MANAGEMENT. HE IS NOT A CANDIDATE FOR CHEMO AND RADIATION AT THIS TIME D/T SBO. PC WILL CONTINUE TO FOLLOW CASE AND BE AVAILABLE TO PT AND STAFF NEEDED.
[2024-10-26 16:11] VITALS: BP 112/81
--- NOTE | 2024-10-26 16:19 | NUR ---
SUPPORTIVE VISIT AND REVIEW OF CONSULT RECOMMENDATIONS ROMELIA IS A/O X4. ABLE TO MAKE NEEDS KNOWN. INDEPENDENT IN ROOM. LAST EVENING 10/25 THIS PC RN EDUCATED PT ON IMPORTANCE OF GETTING OOB, SITTING UP IN CHAIR DURING TRADITIONAL MEAL TIMES (EVEN IF NOT HAVING ORAL INTAKE), AND AMBULATING A MINIMUM OF 3 TIMES A DAY. HE TAUGHT BACK THE IMPORTANCE MAINTAINING WHAT STRENGTH AND MUSCLE TONE HE CURRENTLY HAS. YESTERDAY 10/25 DR. TALBERT SEEN PATIENT AT BEDSIDE AND REVIEWED PALLIATIVE SURGICAL INTERVENTION FOR SBO. ROMELIA EXPRESSED HIS DESIRE TO HAVE THE THE ABDOMINAL SURGERY REGARDLESS OF THE RISKS. GOAL IS FOR PT'S NUTRITION TO CHANGE FROM PPN TO TPN TOMORROW. PRIMARY RN AND GENERAL SURGERY PHYSICIAN ASSISTANT UPDATED. PC WILL CONTINUE TO BE AVAILABLE NEEDED.
[2024-10-26] MEDS ORDERED: POTASSIUM CHLORIDE 80 MEQ IV SCH (17:00)
[2024-10-26] MEDS ORDERED: SODIUM ACETATE 40 MEQ IV SCH (17:00)
[2024-10-26] MEDS ORDERED: SODIUM CHLORIDE IV SCH (17:00)
[2024-10-26] MEDS ORDERED: [UNRECOGNIZED DRUG - OTHER] IV SCH (17:00)
--- NOTE | 2024-10-26 17:14 | NUR ---
PATIENT IS A/O X 4. PATIENT IS INDEPENDENT IN ROOM AND CALLS FOR ASSITANCE. PATIENT TOOK A WALK THIS MORNING AROUND THE UNIT. PATIENT IS PENDING SURGERY AT [facility] AND HAS BEEN ACCEPTED TO [facility] PENDING BED PLACEMENT. PATIENT PENDING PICC PLACMENT FOR TPN. PATIENT HAS IV IN LEFT AC AND POWERGLIDE IN LEFT AC WITH PPN INFUSING AT 140/HR. PATIENT HAS CALL LIGHT AT SIDE AND ABLE TO CALL FOR ASSITANCE WHEN NEEDED.
[2024-10-26 21:09] VITALS: BP 116/84
[2024-10-27 04:00] VITALS: BP 116/84
--- NOTE | 2024-10-27 05:09 | NUR ---
AAOX4, INDEPENDENT WITH CARES. AMBULATES IN HALLWAY, STEADY GAIT. EMESIS X2, DECLINES INTERVENTION. L NEPHROSTOMY WHICH PT DRAINS INTO URINAL IN BR, FOR STAFF TO EMPTY FOR ACURATE I&O. PPN INFUSING WITHOUT COMPLICATIONS. DC PLAN IS SURGERY @ [facility] CORDINATED BY DR. TALBERT.
[2024-10-27 06:28] LABS: Anion Gap 10 mmol/L (3-11); Blood Urea Nitrogen 38 mg/dL (8-24); Bun/Creatinine Ratio 25.2 (12.0-20.0); CO2, Blood 27 mmol/L (21-32); Calcium, Blood 10.3 mg/dL (8.5-10.1); Chloride, Blood 95 mmol/L (98-108); Creatinine, Blood 1.51 mg/dL (0.60-1.20); Glomerular Filtration Rate 60 (60-); Glucose, Blood 93 mg/dL (70-99); Magnesium, Blood 2.3 mg/dL (1.6-2.4); Phosphorus, Blood 2.7 mg/dL (2.5-4.9); Potassium, Blood 4.3 mmol/L (3.5-5.5); Prealbumin, Blood 41.8 mg/dL (20.0-40.0); Sodium, Blood 128 mmol/L (136-145); Triglycerides 70 mg/dL (30-140)
[2024-10-27 07:26] LABS: BASOPHILS ABSOLUTE AUTO 0.08 K/mm3 (0.00-0.23); BASOPHILS PERCENT AUTO 1 % (0-2); EOSINOPHILS ABSOLUTE AUTO 0.45 K/mm3 (0.00-0.68); EOSINOPHILS PERCENT AUTO 3 % (0-6); Hematocrit 48.9 % (37.0-53.0); Hemoglobin 16.2 g/dL (13.5-17.5); IMMATURE GRAN PERCENT AUTO 2 % (0-1); LYMPHOCYTES ABSOLUTE AUTO 2.25 K/mm3 (0.84-5.20); LYMPHOCYTES PERCENT AUTO 17 % (21-46); MONOCYTES ABSOLUTE AUTO 1.16 K/mm3 (0.16-1.47); MONOCYTES PERCENT AUTO 9 % (4-13); Mean Corpuscular HGB 24.3 pg (26.0-34.0); Mean Corpuscular HGB Conc 33.1 g/dL (31.5-36.5); Mean Corpuscular Volume 73 fL (80-100); Mean Platelet Volume 10.8 fL (9.1-12.4); NEUTROPHILS ABSOLUTE AUTO 9.42 K/mm3 (1.96-9.15); NEUTROPHILS PERCENT AUTO 69 % (41-73); Platelet Count 296 K/mm3 (150-400); RDW Coefficient Variation 19.8 % (11.7-14.2); RDW Standard Deviation 46.8 fL (35.1-46.3); Red Blood Cell Count 6.68 M/mm3 (4.30-5.90); White Blood Cell Count 13.56 K/mm3 (4.00-11.30)
[2024-10-27 07:45] VITALS: BP 111/78
--- NOTE | 2024-10-27 11:58 | NUR ---
UPDATE PATIENT VOMITTED 1300MLS. PATIENT DENIES NAUSEA AND MEDICATION FOR IT. PLAN FOR PICC LINE PLACEMENT TODAY. PATIENT NOTIFIED. PATIENT WALKING IN HALLS INDEPENDENTLY TOLERATED.
[2024-10-27] MEDS ORDERED: LIDOCAINE 2.5%/PRILOCAINE 2.5% CREAM 30 GM TUBE TOP ONE (12:20)
[2024-10-27] MEDS ORDERED: TPN Consult Notification XX ONE (13:50)
[2024-10-27] MEDS ORDERED: NS 1,000 ML IV SCH (14:00)
[2024-10-27 16:30] VITALS: BP 123/84
[2024-10-27] MEDS ORDERED: POTASSIUM CHLORIDE 80 MEQ IV SCH (17:00)
[2024-10-27] MEDS ORDERED: SODIUM CHLORIDE IV SCH (17:00)
[2024-10-27] MEDS ORDERED: [UNRECOGNIZED DRUG - OTHER] IV SCH (17:00)
[2024-10-27] MEDS ORDERED: SODIUM ACETATE 40 MEQ IV SCH (17:00)
--- NOTE | 2024-10-27 17:22 | NUR ---
SHIFT SUMMARY PATIENT DENIES PAIN, NAUSEA, AND SHORTNESS OF BREATH. PATIENT DID PUKE TWICE TODAY, BUT DENIES NAUSEA. PATIENT DESCRIBED IT PRESSURE. PATIENT IS A&OX4. PATIENT IS IND IN ROOM. PATIENT WALKS IN HALLWAYS TOLERATED. PATIENT HAS MEDIPORT AND WAS ACCESSED TODAY FOR TPN. TPN STARTED AT APPROX. 1700. [facility] UPDATED ON PATIENT CONDITION, STILL NO BEDS AVAILABLE FOR TRANSFER. PATIENT SIPS ON CLEAR LIQUIDS THROUGHOUT DAY. PATIENT PLEASANT AND COOPERATIVE WITH CARE. PATIENT CALLS APPROPRIATELY.
[2024-10-27 21:47] VITALS: BP 114/79
[2024-10-28 02:06] VITALS: BP 106/75
--- NOTE | 2024-10-28 04:05 | NUR ---
AAOX4, INDEPENDENT. AMBULATE IN HALLWAY WITH STEADY GAIT. L NEPHROSTOMY WHICH PT DRAINS. PORT ACSESSED AND TPN INFUSING WITHOUT DIFFICULTY. CHG BATH DONE. PLAN IS SURGERY @ [facility] WHEN A BED IS AVAILABLE.
[2024-10-28 06:49] LABS: Magnesium, Blood 2.1 mg/dL (1.6-2.4)
[2024-10-28 07:15] LABS: Bun/Creatinine Ratio 24.2 (12.0-20.0); Calcium, Blood 9.8 mg/dL (8.5-10.1); Creatinine, Blood 1.32 mg/dL (0.60-1.20); Phosphorus, Blood 2.9 mg/dL (2.5-4.9); Potassium, Blood 3.6 mmol/L (3.5-5.5); Prealbumin, Blood 41.4 mg/dL (20.0-40.0)
[2024-10-28 07:46] VITALS: BP 108/85
[2024-10-28 14:50] VITALS: BP 108/77
[2024-10-28] MEDS ORDERED: SODIUM ACETATE 40 MEQ IV SCH (17:00)
[2024-10-28] MEDS ORDERED: SODIUM CHLORIDE IV SCH (17:00)
[2024-10-28] MEDS ORDERED: [UNRECOGNIZED DRUG - OTHER] IV SCH (17:00)
[2024-10-28] MEDS ORDERED: POTASSIUM CHLORIDE 80 MEQ IV SCH (17:00)
--- NOTE | 2024-10-28 17:55 | NUR ---
SHIFT SUMMARY MR PADGETT HAS HAD 2 EPISODES OF EMESIS TODAY, ONE LARGER DARK GREEN EMESIS AFTER DRINKING SOME APPLEJUICE THIS MORNING. HE IS SINCE NPO, HAS HAD ONE SMALLER EMESIS. HE DENIES PAIN. HE HAS BEEN UP AMBULATORY IN THE HALLS, STEADY INDEPENDENT GAIT. TOLERATING TPN AT 140CC/HR. AWAITING TRANSFER TO [facility], CHARGE NURSE CONFIRMED THAT HE IS ON THE LIST FOR A BED THERE. BED LOW, CALL LIGHT IN REACH.
[2024-10-28 20:17] VITALS: BP 116/79
[2024-10-29 04:33] VITALS: BP 128/85
[2024-10-29 05:54] LABS: Albumin, Blood 3.8 g/dL (3.4-5.0); Anion Gap 13 mmol/L (3-11); Blood Urea Nitrogen 33 mg/dL (8-24); Bun/Creatinine Ratio 23.9 (12.0-20.0); CO2, Blood 29 mmol/L (21-32); Calcium, Blood 10.1 mg/dL (8.5-10.1); Chloride, Blood 92 mmol/L (98-108); Creatinine, Blood 1.38 mg/dL (0.60-1.20); Glomerular Filtration Rate 67 (60-); Glucose, Blood 103 mg/dL (70-99); Magnesium, Blood 2.2 mg/dL (1.6-2.4); Phosphorus, Blood 3.6 mg/dL (2.5-4.9); Potassium, Blood 3.6 mmol/L (3.5-5.5); Sodium, Blood 130 mmol/L (136-145); Triglycerides 72 mg/dL (30-140)
[2024-10-29] MEDS ORDERED: Ondansetron HCl 2 MG / ML 2ML Vial IV PRN (06:05)
--- NOTE | 2024-10-29 06:15 | NUR ---
SHIFT SUMMARY AT START OF SHIFT, PT SLEEPING LIGHTLY WITH LIGHTS OUT. PT DENIES PAIN, OR NEED FOR ANY ASSISTANCE AT THIS TIME. WILL CONTINUE TO MONITOR. 0540, PT VOMITTED AGAIN. MEDICATED FOR NAUSEA/VOMITING PER EMAR. PT CONTINUING TO VOMIT. MEDICATED WITH NEW MEDICATION PER EMAR. CONTINUING TO MONITOR.
[2024-10-29 07:33] VITALS: BP 112/80
[2024-10-29 15:13] VITALS: BP 112/78
[2024-10-29] MEDS ORDERED: Menthol/Methyl Salicylate Crm 85 GM TUBE TOP PRN (15:25)
[2024-10-29] MEDS ORDERED: Lidocaine 4% 1 Patch TOP PRN (16:00)
[2024-10-29] MEDS ORDERED: Lidocaine 4% 1 Patch TOP ONE (16:00)
--- NOTE | 2024-10-29 16:26 | NUR ---
Shift Summary Mr Hays has had dark green emesis episodes intermittantly throughout the day. He has not wanted antiemetics. No abdominal pain. C/O R shoulder ache which is slightly better after lidocaine patch. Tolerating TPN at 140cc/hr to R chest port. He has ambulated in the hallways a few times, independent, steady gait. He is awaiting transfer to [facility] when bed available.
[2024-10-29 19:42] VITALS: BP 115/86
--- NOTE | 2024-10-30 00:48 | NUR ---
NURSE NOTE THIS RN GAVE UPDATE TO [facility] REGARDING PATIENT. NO BED OF YET. WILL UPDATE [facility] NEEDED.
[2024-10-30] MEDS ORDERED: Lidocaine 4% 1 Patch TOP SCH (01:25)
[2024-10-30 03:33] VITALS: BP 113/82
--- NOTE | 2024-10-30 05:05 | NUR ---
SHIFT SUMMARY PATIENT IS ALERT AND ORIENTED. PATIENT HAS HAD NO ACUTE EVENTS THIS SHIFT. VITAL SIGNS REVIEWED. PATIENT HAS HAD A COUPLE EMESIS EPISODES THIS SHIFT. PATIENT HAS COMPLAINED OF NAUSEA, VOMITTING, AND PAIN THIS SHIFT. NO SOB THIS SHIFT. PATIENT HAS BEEN MEDICATED FOR PAIN THIS SHIFT. PATIENT HAS BEEN IND IN ROOM THIS SHIFT. TPN INFUSING AT 140ML/HR.
[2024-10-30 07:29] VITALS: BP 116/75
[2024-10-30 15:27] VITALS: BP 110/78
[2024-10-30] MEDS ORDERED: Lactated Ringer's 1,000 ML IV SCH (15:55)
--- NOTE | 2024-10-30 18:12 | NUR ---
SUMMARY- PT A/O X4, VERBAL AND COOPERATIVE, SIMPLE AND CHILDLIKE. USES CALL LIGHT TO MAKE NEEDS KNOWN. PT INDEPENDANT AND STEADY ON FEET. AMBULATED IN THE DAUGHERTY A FEW TIMES WITH HIS IV POLE AROUND THE ENTIRE UNIT. STATES HE FELT DIZZY A FEW TIMES WHILE AMBULATING. PT TAKING IN CLEAR LIQ SPARINGLY. DENIES NAUSEA. STATES HE FEELS DISCOMFORT IN R SIDE OF ABD; AREA COVERED WITH LIDO PATCH THAT HE STATES IS HELPFUL TO RELEIVE PAIN. PT HAD A LG EMESIS REPORTED THIS AM. A 2ND EMESIS REPORTED AT NOONTIME. DR JULIA MCFADDEN AT BEDSIDE TO EVAL PT 1400, AWARE THAT PT HAD COMPLAINED OF DIZZINESS AND HAD LG EMESIS EARLIER. ORDER FOR IVF STARTED. PT HAD STATED HE FELT THIRSTY AND SUSPECTED HE MAY BE DEHYDRATED IN RELATION TO EMESIS. STILL AWAITING [facility]ED. WILL REPORT TO RODO MELARA
[2024-10-30 21:05] VITALS: BP 108/69
--- NOTE | 2024-10-30 23:16 | NUR ---
HOSPITALIST CONTACTED PT HAD EPISODE OF FORCEFUL EMESIS; 1000MLS OUT OF DARK GREEN LIQUID. DISCUSSED NG TUBE--PT DECLINED. PT ALSO REPORTING INCREASED PAIN IN RIGHT SIDE NOT ALLEVIATED WITH LIDOCANE PATCH. CALL TO ONCALL; SPOKE TO GABO; NEW ORDER FOR TORODOL 15MG Q8 PRN.
[2024-10-30] MEDS ORDERED: Ketorolac Tromethamine 15mg Vial IV PRN (23:20)
[2024-10-31] MEDS ORDERED: FentaNYL Citrate 50 MCG/ML 2 ML Injection IV PRN (00:55)
[2024-10-31 06:00] VITALS: BP 112/78
--- NOTE | 2024-10-31 07:22 | NUR ---
SHIFT SUMMARY PT COMPLAINING OF PAIN THROUGHOUT NIGHT. IV KETOROLAC ADMINISTERED AND RELIEVED PAIN. PT TOOK SHOWER TONIGHT AFTER GOING FOR A WALK AROUND UNIT FLOOR. PT STILL WAITING ON BED AT [facility]. HE HAS BEEN COOPERATIVE WITH CARE.
[2024-10-31 07:41] VITALS: BP 107/67
[2024-10-31 15:33] VITALS: BP 109/69
[2024-10-31] MEDS ORDERED: POTASSIUM CHLORIDE 80 MEQ IV SCH (17:00)
[2024-10-31] MEDS ORDERED: SODIUM ACETATE 40 MEQ IV SCH (17:00)
[2024-10-31] MEDS ORDERED: [UNRECOGNIZED DRUG - OTHER] IV SCH (17:00)
[2024-10-31] MEDS ORDERED: SODIUM CHLORIDE IV SCH (17:00)
--- NOTE | 2024-10-31 18:46 | NUR ---
SUMMARY- PT A/O X4, PLEASAND AND COOPERATIVE. NORMOACTIVE BOWEL TONES. PT REMAINS NPO EXCEPT SIPS/CHIPS. DENIES ABD PAIN OR NAUSEA. PT HAS EMEISIS ON A REGULAR BASIS BUT REFUSING NG TUBE. PT RECRIVING TPN VIA PORT AND LR @75ML HR IN ADDITION PT WAS FEELING DRY AND COMPLAINED OF DIZZINESS. PT STATES LESS DIZZINESS TODAY. AMBULATED IN THE DAUGHERTY A FEW TIMES TODAY. MIN CLOUDY YELLOW FROM L NEPH. STILL AWAITING BED FOR [facility] [place]. WILL REPORT TO NOC RN
[2024-10-31 19:21] VITALS: BP 103/77
--- NOTE | 2024-11-01 04:11 | NUR ---
SHIFT SUMMARY PATIENT HAD NO ACUTE CHANGES. AXOX 4, NPO, AND INDEPENDENT IN ROOM. MEDIPORT RU CHEST AND POWERGLIDE HIRA ARM. TPN @ 140 mL/HR AND LR @ 75 mL/HR. REPORTED L SIDE PAIN AND IV TORADOL 15 MG GIVEN PER EMAR X ONE. BREAK NURSE REPORTED 1,300 mL/ BROWN LIQUID EMESIS. LEFT NEPHROSTOMY TUBE SELF CARE. [facility] CALLED FOR UPDATE WITH NO ROOMS AVAILABLE AT THIS TIME. SLEPT MOST OF THE SHIFT. CALL LIGHT IN REACH. BED IN LOWEST POSITION. WILL CONTINUE TO MONITOR UNTIL DAY SHIFT NURSE ASSUMES CARE.
[2024-11-01 05:10] VITALS: BP 112/74
[2024-11-01 07:50] VITALS: BP 103/78
[2024-11-01 15:13] VITALS: BP 100/73
--- NOTE | 2024-11-01 16:31 | NUR ---
NOTIFIED OF PRESSURE INJURY STAGE 2 TO LEFT BUTTOCK. NEW ORDERS FOR WOUND CARE RECIEVED. MEPILEX IN PLACE, C/D/I. PHOTOS OF PRESSURE INJURY IN PAPER CHART.
[2024-11-01 17:36] VITALS: BP 105/76
--- NOTE | 2024-11-01 18:35 | NUR ---
SHIFT SUMMARY PATIENT A/OX4, PATIENT WITH FLAT AFFECT AND WITHDRAWN BUT COOPERATIVE WITH CARE. ANXIOUS FOR TRANSFER TO [facility] FOR SURGERY. REMAINS NPO, TPN RUNNING TO MEDIPORT PER ORDER. IV FLUIDS RUNNING TO POWERGLIDE TO PARAS. POWERGLIDE DRESSING CHANGED THIS SHIFT. PATIENT WITH MULTIPLE BOUTS OF EMESIS TODAY, DENIES NEED FOR NAUSEA MEDICATION. STATES HE FEELS "PRESSURE" AND "PAIN" BUT NO NAUSEA. VOMITTING RELIEVES THE PRESSURE AND PAIN. TORADOL ADMINISTERED THIS MORNIGN FOR ABDOMINAL AND BACK PAIN. PATIENT INDEPENDENT AND AMBULATED THE HALLWAYS MULTIPLE TIMES THIS SHIFT. NO OTHER CONCERNS AT THIS TIME.
[2024-11-01 19:53] VITALS: BP 112/69
[2024-11-02 03:44] VITALS: BP 116/75
--- NOTE | 2024-11-02 04:37 | NUR ---
NOC SUMMARY- NO NEW ISSUES. PT HAS BEEN RESTING QUIETLY. PT DISCOMFORT TX PER DEC. [facility] CALLED FOR UPDATES AND STATED STILL WAITING FOR BED TO OPEN UP. PT HAS NO COMPLAINTS. CALL LIGHT IN REACH.
[2024-11-02 06:04] LABS: BASOPHILS ABSOLUTE AUTO 0.05 K/mm3 (0.00-0.23); BASOPHILS PERCENT AUTO 1 % (0-2); EOSINOPHILS ABSOLUTE AUTO 0.35 K/mm3 (0.00-0.68); EOSINOPHILS PERCENT AUTO 4 % (0-6); Hematocrit 42.8 % (37.0-53.0); Hemoglobin 14.4 g/dL (13.5-17.5); IMMATURE GRAN ABSOLUTE AUTO 0.06 K/mm3 (0.00-0.10); IMMATURE GRAN PERCENT AUTO 1 % (0-1); LYMPHOCYTES ABSOLUTE AUTO 1.11 K/mm3 (0.84-5.20); LYMPHOCYTES PERCENT AUTO 13 % (21-46); MONOCYTES ABSOLUTE AUTO 0.76 K/mm3 (0.16-1.47); MONOCYTES PERCENT AUTO 9 % (4-13); Mean Corpuscular HGB 24.3 pg (26.0-34.0); Mean Corpuscular HGB Conc 33.6 g/dL (31.5-36.5); Mean Corpuscular Volume 72 fL (80-100); NEUTROPHILS ABSOLUTE AUTO 6.27 K/mm3 (1.96-9.15); NEUTROPHILS PERCENT AUTO 73 % (41-73); Platelet Count 195 K/mm3 (150-400); RDW Coefficient Variation 18.9 % (11.7-14.2); Red Blood Cell Count 5.93 M/mm3 (4.30-5.90)
[2024-11-02 06:41] LABS: Albumin, Blood 3.6 g/dL (3.4-5.0); Albumin/Globulin Ratio 0.8 (0.8-1.8); Bilirubin, Total 2.7 mg/dL (0.1-1.0); Bun/Creatinine Ratio 31.8 (12.0-20.0); Calcium, Blood 10.1 mg/dL (8.5-10.1); Creatinine, Blood 1.92 mg/dL (0.60-1.20); Globulin, Blood 4.4 g/dL (2.2-4.0); Magnesium, Blood 2.3 mg/dL (1.6-2.4); Phosphorus, Blood 4.1 mg/dL (2.5-4.9); Potassium, Blood 3.8 mmol/L (3.5-5.5)
[2024-11-02 07:33] VITALS: BP 103/73
[2024-11-02] MEDS ORDERED: NS 1,000 ML IV SCH (08:00)
[2024-11-02] MEDS ORDERED: TPN Consult Notification XX ONE (12:20)
[2024-11-02 15:37] VITALS: BP 106/70
[2024-11-02] MEDS ORDERED: SODIUM ACETATE 40 MEQ IV SCH (17:00)
[2024-11-02] MEDS ORDERED: POTASSIUM CHLORIDE 80 MEQ IV SCH (17:00)
[2024-11-02] MEDS ORDERED: [UNRECOGNIZED DRUG - OTHER] IV SCH (17:00)
[2024-11-02] MEDS ORDERED: SODIUM CHLORIDE IV SCH (17:00)
--- NOTE | 2024-11-02 19:18 | NUR ---
SHIFT SUMMARY PATIENT A/OX4, ABLE TO MAKE NEEDS KNOWN. WITHDRAWN BUT PLEASANT AND COOPERATIVE. COMPLAINING OF RIGHT SHOULDER AND BACK PAIN WELL ABDOMINAL PAIN. SCHEDULED LIDOCAINE PATCH REFUSED THIS MORNING BUT PATIENT REQUESTED PLACEMENT TO RIGHT SHOULDER/BACK THIS AFTERNOON. TORADOL ADMINISTERED X2 THIS SHIFTPATIENT EDUCATED REGAURDING FENTANYL ORDER AND 5 DAY TIME FRAME OF TORADOL ADMINISTRATION, CURRENTLY ON DAY 4. PATIENT CONTINUES TO BE HESITANT OF TAKING FENTANYL HE "UNSURE OF THE SIDE EFFECTS" IT WILL CAUSE HIM. POWERGLIDE TO LEFT UPPER ARM RUNNING NORMAL SALINE PER DEC AND MEDIPORT RUNNING TPN PER DEC. PATIENT ABLE TO AMBULATE THE HALLWAYS TWICE THIS SHIFT. PENDING TRANSFER TO [facility]. NEPHROSTOMY TO LEFT FLANK WITH DARK GREEN OUTPUT. PATIENT WITH TWO EPISODES OF EMESIS THIS SHIFT, DENIES THE NEED FOR NAUSEA MEDICATION. NO OTHER CONCERNS AT THIS TIME.
[2024-11-02 20:48] VITALS: BP 94/68
[2024-11-02 20:55] VITALS: BP 100/69
[2024-11-03 03:36] VITALS: BP 115/78
--- NOTE | 2024-11-03 05:08 | NUR ---
SHIFT SUMMARY PATIENT IS ALERT AND ORIENTED. PATIENT HAS HAD NO ACUTE EVENTS THIS SHIFT. VITAL SIGNS REVIEWED. PATIENT HAS NO COMPLAINTS OF PAIN, NAUSEA, SOB OR VOMITTING THIS SHIFT. PATIENT HAS BEEN UNCOMFORTABLE THIS SHIFT BUT REFUSES PRN MEDICATIONS WHEN ASKED. FLUIDS INFUSING ORDERED. PATIENT HAS BEEN IND IN HALLS THIS SHIFT. BED IN LOCKED AND LOWEST POSITION. CALL LIGHT IN PLACE.
[2024-11-03 06:15] LABS: Albumin, Blood 3.4 g/dL (3.4-5.0); Albumin/Globulin Ratio 0.8 (0.8-1.8); Bilirubin, Direct 1.4 mg/dL (0.0-0.3); Bilirubin, Total 2.4 mg/dL (0.1-1.0); Bun/Creatinine Ratio 31.1 (12.0-20.0); Calcium, Blood 9.9 mg/dL (8.5-10.1); Creatinine, Blood 1.9 mg/dL (0.60-1.20); Globulin, Blood 4.2 g/dL (2.2-4.0); Potassium, Blood 3.8 mmol/L (3.5-5.5); Total Protein, Blood 7.6 g/dL (6.4-8.2)
[2024-11-03 07:23] VITALS: BP 101/72
[2024-11-03 15:19] VITALS: BP 123/86
--- NOTE | 2024-11-03 17:54 | NUR ---
NO CHANGES, STILL 2WAITING FOR [facility] BED, EMESIS X2 TODAY, REFUSED MEDICATION FOR THE NAUSEA, REFSUED PAIN MEDICATION, CPN BAG AND TUBING CHANGED, PATIENT ALERT AND ORIENTED X4, PLEASANT TO CARE, AMBULATED IN HALLS, CALL LIGHT WITH IN REACH
[2024-11-03 19:58] VITALS: BP 110/70
[2024-11-04 02:15] VITALS: BP 120/77
--- NOTE | 2024-11-04 05:02 | NUR ---
SHIFT SUMMARY PATIENT IS ALERT AND ORIENTED PATIENT HAS HAD NO ACUTE EVENTS THIS SHIFT. VITAL SIGNS REVIEWED. PATIENT HAS HAD NO COMPLAINTS OF PAIN, NAUSEA, VOMITTING OR SOB THIS SHIFT. PATIENT HAS REPORTED NO EMESIS DURING THIS SHIFT. PATIENT HAS BEEN IND THIS SHIFT. IV FLUIDS INFUSED ORDERED THIS SHIFT. [facility] HAS NOT CALLED FOR UPDATE THIS SHIFT.
[2024-11-04 06:42] LABS: Bun/Creatinine Ratio 28.3 (12.0-20.0); Calcium, Blood 9.4 mg/dL (8.5-10.1); Creatinine, Blood 1.38 mg/dL (0.60-1.20); Magnesium, Blood 2.3 mg/dL (1.6-2.4); Potassium, Blood 3.8 mmol/L (3.5-5.5)
[2024-11-04 07:09] VITALS: BP 110/72
--- NOTE | 2024-11-04 12:59 | NUR ---
SUPPORTIVE VISIT: PT IS A/O X4. IN GOOD SPIRITS AND CONVERSATIONAL THIS MORNING. HE AND PRIMARY RN BOTH REPORT PT HAS BEEN AMBULATING IN HIS ROOM AND HALLWAY. THIS PC RN ENCOURAGED HIM TO KEEP UP THE GREAT WORK. HE REVERSE TAUGHT THE IMPORTANCE TO STAYING ACTIVE AND GETTING HEALTHY POSSIBLE FOR HIS BEST CHANCE AT [facility] SURGERY. DENIES PAIN OR NAUSEA AT THIS TIME. PROVIDED WORD SEARCH PAGES REQUESTED BY PRIMARY RN.
[2024-11-04 15:07] VITALS: BP 117/76
[2024-11-04 20:02] VITALS: BP 111/76
--- NOTE | 2024-11-05 00:43 | NUR ---
CALL FROM [facility]EN[facility]/SCHEDULING: THIS OPERATIONS CONTROLLER RECEIVED A PHONE CALL @6560 FROM [facility]I. PER CONVERSTATION, THIS PT IS UP HIGH ON THE LIST TO GET A BED FROM [facility], AND THEY HAVE SCHEDULED A SURGERY TIME: October. SHEET ROCK TAPER HELPER MAHAD PIRES NOTIFIED.
--- NOTE | 2024-11-05 03:07 | NUR ---
SHIFT SUMMARY NO ACUTE EVENTS DURING THIS SHIFT. THIS ABSTRACT CLERK RECEIVED A PHONECALL FROM THE [facility], (SEE PREVIOUS NOTE). PT HIGH IN THE LIST TO GET A BED FROM [facility] AND A POSSIBLE SURGERY October. CHARGE NURSE MAHAD NOTIFIED. PT IS A/O X4 SLIGHTLY WITHDRAWN, COOPERATIVE WITH CARE, PLEASANT. TPN INFUSING ORDERED. NS INFUSING ORDERED. MEDIPORT ON RIGHT UPPER CHEST WALL. VSS. 800MLS VOMIT DURING THIS SHIFT, DARK GREEN IN COLOR. PT DENIES A NEED FOR NAUSEA OR PAIN MEDICATIONS. @HS BROTHER AND FEMALE VISITING AND PLAYING BOARD GAME WITH THE PT. PT IN A GOOD SPIRITS. PT TOOK A WALK AROUND THE UNIT @HS. BED AT THE LOWEST POSITION, CALL LIGHT W/I REACH. PT IS ABLE TO MAKE HIS NEEDS KNOWN.
[2024-11-05 03:36] VITALS: BP 113/70
[2024-11-05 06:26] LABS: Bun/Creatinine Ratio 24.2 (12.0-20.0); Calcium, Blood 9.2 mg/dL (8.5-10.1); Creatinine, Blood 1.28 mg/dL (0.60-1.20); Magnesium, Blood 2.1 mg/dL (1.6-2.4); Phosphorus, Blood 2.9 mg/dL (2.5-4.9); Potassium, Blood 3.7 mmol/L (3.5-5.5)
[2024-11-05] MEDS ORDERED: FentaNYL Citrate 50 MCG/ML 2 ML Injection IV ONE (10:00)
[2024-11-05] MEDS ORDERED: LORazepam 2 MG/ML 1ML Injection IV ONE (10:00)
[2024-11-05] MEDS ORDERED: Lidocaine 2% Jelly Uro-Jet TOP ONE (11:55)
[2024-11-05 16:52] VITALS: BP 106/74
[2024-11-05 17:48] VITALS: BP 106/74
--- NOTE | 2024-11-05 18:06 | NUR ---
NG TUBE PLACED, GREEN COFFE GROUNDS FROM THE NG TUBE, PATIENT REPORTS SOME RELIEF FROM THE NG TUBE LESSENING THE PRESSURE, PATIENT HAS NOT EMESISED SINCE NG TUBE PLACED, PATIENT ACCEPTED TO [facility], REPORT TO BE GIVEN NURSE TO NURSE, MELISSA ROSE PAPER WORK DONE, [facility] FLOOR 4A ROOM 12, DENIES NEEDS FOR PAIN MEDICATIONS OR NAUSEA MEDICATIONS, ALERT AN DORIENTED X4, COOPERATIVE TO CARE, NG TUBE VERY UNCOMFORTABLE TO PATIENT. CALL LIGHT WITH IN REACH, SCD ON, NG TO LIS, WILL RLEAY TO PM RN
--- NOTE | 2024-11-05 18:14 | NUR ---
NURSE TO NURSE REPORT TO [facility], THE ACCEPTING NURSE WANTS REPORT FROM [facility], TRANSPORT ESTIMATED AT 1930
[2024-11-05 19:43] VITALS: BP 113/73
--- NOTE | 2024-11-05 23:33 | NUR ---
this commercial lines underwriter spoke with charge nurse jovita, found out pt's estimated time of departure/transfer to [facility] is on 11/06/24 @1130 by ambulance. This commercial lines underwriter called on-call hospitalist @0320 and requested that NS would be restarted per active order @75mls/hr. Ok to restart per . Iv fluids were stopped at the beginning of this shift d/t pt's initial time of departure to [facility] was 1929. This was postponed d/t ambulance emergency situations. charge account identification clerk notified.
--- NOTE | 2024-11-06 00:17 | NUR ---
DRESSING WAS CHANGED TO LEFT NEPHROSTOMY TUBE/BAG INSERTION SITE @0000. PT TOLERATED WELL W/O COMPLAINTS. A SCANT AMOUNT OF FLUID/DRAINAGE NOTED IN THE PREVIOUS DRESSING. C/D/I.
[2024-11-06 03:18] VITALS: BP 111/84
--- NOTE | 2024-11-06 03:40 | NUR ---
SHIFT SUMMARY PT WAS SUPPOSED TO TRANSFER @1930 TO [facility] FLOOR 4A, RM#12. AMBULANCE TRANSPORT DELAYED. NEW ESTIMATED TIME OF DEPARTURE IS TODAY 11/06/24 @1130. PT HAS NG-TUBE IN PLACE, OUTPPUT>2400MLS, DARK GREEN IN COLOR. SOME N/V, <100MLS OF GREEN IN COLOR. PT DENIES A NEED FOR NAUSEA OR PAIN MEDICATION. LEFT NEPHROSTOMY OUTPUT<50MLS, LIGHT GREENISH/YELLOWISH IN COLOR. NS INFUSING ORDERED. MEDIPORT WAS DE-ACCESSED PER ART GLASS DESIGNER NURSE MAHAD AT THE BEGINNING OF THIS SHIFT. PT REMAINS NPO. NO TPN INFUSED DURING THIS SHIFT. NO ACUTE EVENTS DURING THIS SHIFT. BED AT THE LOWEST POSITION, CALL LIGHT WITHIN REACH. PT IS ABLE TO MAKE HIS NEEDS KNOWN AND COOPERATIVE WITH CARE.
[2024-11-06 05:44] LABS: Magnesium, Blood 2.2 mg/dL (1.6-2.4); Phosphorus, Blood 3.3 mg/dL (2.5-4.9)
== END 2024-11-06 07:07 | disposition short-term general hospital (02) | DRG 682 ==
LOC: ER 13:07 → MEDS 20:25
PROVIDERS: Family Medicine; Family Medicine Adult Medicine; Nurse Practitioner Acute Care; Student in an Organized Health Care Education/Training Program; ADMIT Internal Medicine
PROC: 3E0336Z Introduction of Nutritional Substance into Peripheral Vein, Percutaneous Approach (ICD-10-PCS; 2024-10-21)
PROC: 3E0336Z Introduction of Nutritional Substance into Peripheral Vein, Percutaneous Approach (ICD-10-PCS; 2024-10-26)
PROC: 02H633Z Insertion of Infusion Device into Right Atrium, Percutaneous Approach (ICD-10-PCS; 2024-10-26)
PROC: 0D9670Z Drainage of Stomach with Drainage Device, Via Natural or Artificial Opening (ICD-10-PCS; principal; 2024-11-05)
DX: N17.9 Acute kidney failure, unspecified (principal); E43 Unspecified severe protein-calorie malnutrition; C18.6 Malignant neoplasm of descending colon; K56.699 Other intestinal obstruction unspecified as to partial versus complete obstruction; E87.1 Hypo-osmolality and hyponatremia; C78.7 Secondary malignant neoplasm of liver and intrahepatic bile duct; C78.00 Secondary malignant neoplasm of unspecified lung; F84.0 Autistic disorder; E86.0 Dehydration; D50.9 Iron deficiency anemia, unspecified; K80.20 Calculus of gallbladder without cholecystitis without obstruction; E86.1 Hypovolemia; E87.6 Hypokalemia; E83.39 Other disorders of phosphorus metabolism; M25.511 Pain in right shoulder; Z93.6 Other artificial openings of urinary tract status; Z90.49 Acquired absence of other specified parts of digestive tract; Z68.26 Body mass index [BMI] 26.0-26.9, adult
CPT/HCPCS: 36415; 70450; 71045; 74018; 74177; 74240; 76705; 80048; 80053; 80069; 82248; 82570; 82728; 82947; 83540; 83550; 83690; 83735; 84100; 84134; 84300; 84478; 85014; 85018; 85025; 87205; 93005; 93010; 96361; 96374-59; 99285-25; A9270; C1751; J1642; J1885; J2060; J2405; J2765; J2916; J2919; J3010; J3411; J3475; J3480; J7030; J7040; J7050; J7060; J7120; J7131; Q9967

== ENCOUNTER 2025-01-02 14:49 | Inpatient (IN) | payer OTHER ==
[~2025-01-02] VITALS: Ht 172.7 cm; Wt 71.4 kg
[2025-01-02 15:36] LABS: BASOPHILS ABSOLUTE AUTO 0.02 K/mm3 (0.00-0.23); BASOPHILS PERCENT AUTO 1 % (0-2); EOSINOPHILS ABSOLUTE AUTO 0.19 K/mm3 (0.00-0.68); EOSINOPHILS PERCENT AUTO 11 % (0-6); Hematocrit 39.1 % (37.0-53.0); IMMATURE GRAN ABSOLUTE AUTO 0.01 K/mm3 (0.00-0.10); IMMATURE GRAN PERCENT AUTO 1 % (0-1); LYMPHOCYTES ABSOLUTE AUTO 0.57 K/mm3 (0.84-5.20); LYMPHOCYTES PERCENT AUTO 33 % (21-46); MONOCYTES ABSOLUTE AUTO 0.51 K/mm3 (0.16-1.47); MONOCYTES PERCENT AUTO 29 % (4-13); Mean Corpuscular HGB Conc 30.7 g/dL (31.5-36.5); Mean Corpuscular Volume 78 fL (80-100); NEUTROPHILS ABSOLUTE AUTO 0.44 K/mm3 (1.96-9.15); NEUTROPHILS PERCENT AUTO 25 % (41-73); Platelet Count 379 K/mm3 (150-400); RDW Coefficient Variation 18.4 % (11.7-14.2); RDW Standard Deviation 52.1 fL (35.1-46.3); Red Blood Cell Count 4.99 M/mm3 (4.30-5.90); White Blood Cell Count 1.74 K/mm3 (4.00-11.30)
[2025-01-02 15:51] LABS: Albumin, Blood 3.2 g/dL (3.4-5.0); Albumin/Globulin Ratio 0.8 (0.8-1.8); Bilirubin, Total 0.6 mg/dL (0.1-1.0); Bun/Creatinine Ratio 9.8 (12.0-20.0); Creatinine, Blood 1.02 mg/dL (0.60-1.20); Globulin, Blood 4.1 g/dL (2.2-4.0); Potassium, Blood 3.7 mmol/L (3.5-5.5); Total Protein, Blood 7.3 g/dL (6.4-8.2)
[2025-01-02] MEDS ORDERED: OXYACE7.5T PO (18:24)
[2025-01-02] MEDS ORDERED: NS 1,000 ML IV SCH (20:10)
[2025-01-02] MEDS ORDERED: Ondansetron HCl 2 MG / ML 2ML Vial IV ONE (20:10)
[2025-01-02] MEDS ORDERED: Morphine Sulfate 4 MG/1 ML Injection IV ONE (20:10)
[2025-01-02 21:33] LABS: Source, Urine Clean Catch
[2025-01-02 21:44] LABS: Appearance, Urine Clear (Clear); Bilirubin, Urine Neg (Neg); Blood, Urine Neg (Neg); Color, Urine Yellow (P-Yellow); Glucose Qualitative, Urine Neg (Neg); Ketones, Urine Neg (Neg); Leukocyte Esterase, Urine Neg (Neg); Nitrite, Urine Neg (Neg); Protein, Urine 1+ (Neg); Specific Gravity, Urine 1.025 (1.003-1.022); Urobilinogen, Urine 1+ (Normal)
[2025-01-02 22:46] LABS: Source, Urine Nephrostomy
[2025-01-02 22:49] LABS: Appearance, Urine Clear (Clear); Bilirubin, Urine Neg (Neg); Blood, Urine 4+ (Neg); Glucose Qualitative, Urine Neg (Neg); Ketones, Urine Neg (Neg); Leukocyte Esterase, Urine 3+ (Neg); Nitrite, Urine Neg (Neg); Protein, Urine 4+ (Neg); Specific Gravity, Urine 1.015 (1.003-1.022); Urobilinogen, Urine NORM (Normal)
[2025-01-02 22:51] LABS: Color, Urine Pale Yellow (P-Yellow)
[2025-01-02 23:00] LABS: Bacteria Mod /hpf; Red Blood Cells, Urine 25-50 /hpf (0-2)
[2025-01-02 23:01] LABS: Squamous Epithelial Cells Rare /hpf (Few)
[2025-01-02] MEDS ORDERED: Cefepime HCl 2,000 MG in NS 100 ML IV ONE (23:15)
[2025-01-03] MEDS ORDERED: Morphine Sulfate 4 MG/1 ML Injection IV ONE (00:20)
[2025-01-03] MEDS ORDERED: Ondansetron HCl 2 MG / ML 2ML Vial IV PRN (01:55)
[2025-01-03] MEDS ORDERED: Morphine Sulfate 10 MG/ML 1MLSYR IV PRN (01:55)
[2025-01-03] MEDS ORDERED: NS 1,000 ML IV SCH (02:00)
[2025-01-03 02:42] VITALS: BP 115/80
[2025-01-03 05:11] LABS: Hematocrit 36.3 % (37.0-53.0); Hemoglobin 11.3 g/dL (13.5-17.5); Mean Corpuscular HGB Conc 31.1 g/dL (31.5-36.5); Mean Corpuscular Volume 77 fL (80-100); Mean Platelet Volume 8.8 fL (9.1-12.4); Platelet Count 306 K/mm3 (150-400); RDW Coefficient Variation 18.4 % (11.7-14.2); RDW Standard Deviation 51.5 fL (35.1-46.3); White Blood Cell Count 2.47 K/mm3 (4.00-11.30)
[2025-01-03 05:22] LABS: International Normalized Ratio 1.04; Prothrombin Time Results 11.1 Sec (9.7-11.5)
[2025-01-03 05:34] LABS: BAND PERCENT MAN 3 % (0-8); BASOPHILS ABSOLUTE MAN 0.04 K/mm3 (0.00-0.23); BASOPHILS PERCENT MAN 2 % (0-2); EOSINOPHILS ABSOLUTE MAN 0.24 K/mm3 (0.00-0.68); EOSINOPHILS PERCENT MAN 10 % (0-6); LYMPHOCYTES ABSOLUTE MAN 0.96 K/mm3 (0.84-5.20); LYMPHOCYTES PERCENT MAN 39 % (21-46); METAMYELOCYTE ABSOLUTE MAN 0.02 K/mm3 (0.00-0.00); METAMYELOCYTE PERCENT MAN 1 % (0-0); MONOCYTES ABSOLUTE MAN 0.71 K/mm3 (0.16-1.47); MONOCYTES PERCENT MAN 29 % (4-13); NEUTROPHILS ABSOLUTE MAN 0.46 K/mm3 (1.96-9.15); SEG NEUTROPHILS PERCENT MAN 16 % (41-73); TOTAL CELLS COUNTED 100
[2025-01-03 05:35] LABS: Albumin, Blood 2.8 g/dL (3.4-5.0); Albumin/Globulin Ratio 0.8 (0.8-1.8); Bilirubin, Total 0.7 mg/dL (0.1-1.0); Bun/Creatinine Ratio 10.9 (12.0-20.0); Calcium, Blood 8.7 mg/dL (8.5-10.1); Creatinine, Blood 1.01 mg/dL (0.60-1.20); Globulin, Blood 3.6 g/dL (2.2-4.0); Potassium, Blood 3.8 mmol/L (3.5-5.5); Total Protein, Blood 6.4 g/dL (6.4-8.2)
--- NOTE | 2025-01-03 06:03 | NUR ---
SHIFT SUMMARY PATIENT HAS BEEN SLEEPING INTERMITTANTLY SINCE BEING ADMITTED TO THE MEDICAL FLOOR. DRESSING CHANGE WAS COMPLETED ON ABDOMINAL WOUND AND ALSO A CLEAN DRESSING WAS PLACED AROUND THE EXISTING G TUBE. BOTH DRESSINGS WERE VERY SOILED. PATIENT HAD NOT CHANGED THEM AT HOME. PATIENT HAS A VERY SOILED DRESSING ON HIS NEPHROSTOMY TUBE BUT WILL NOT ALLOW ALLOW STAFF TO CHANGE IT. HE IS HOPING IR WILL CHANGE IT THIS AM. VITAL SIGNS ARE STABLE IV IS INFUSING WITHOUT COMPLICATIONS SAFETY PRECAUTIONS ARE BEING MAINTAINED.
[2025-01-03] MEDS ORDERED: Cefepime HCl 1,000 MG in NS 100 ML IV SCH (08:00)
--- NOTE | 2025-01-03 08:17 | NUR ---
0815- THIS RN CALLED DR. PIERCE AND ASKED IF PT SHOULD BE NPO. STAN STATED YES, KEEP PT NPO. RN TO PUT IN ORDER.
[2025-01-03 08:53] VITALS: BP 102/65
--- NOTE | 2025-01-03 09:18 | NUR ---
PHYSICIAN CONTACT- CODE STATUS DR. PIERCE NOTIFIED THAT PT HAS REQUESTED TO BE A FULL CODE. ORDER OBTAINED AND PLACED.
[2025-01-03] MEDS ORDERED: NS 250 ML IV ONE (11:59)
[2025-01-03] MEDS ORDERED: Midazolam HCl 1MG / ML 2ML Vial ONE (14:38)
[2025-01-03] MEDS ORDERED: NS 1,000 ML IV ONE (14:39)
[2025-01-03] MEDS ORDERED: FentaNYL Citrate 50 MCG/ML 2 ML Injection ONE (14:39)
[2025-01-03] MEDS ORDERED: Silver Nitr/Potassium Nitrate 1 EA APPL ONE (15:13)
[2025-01-03 16:30] VITALS: BP 110/75
--- NOTE | 2025-01-03 17:55 | NUR ---
SUMMARY- PT AAOX4. SBA. ON RA. EMAR PAIN MEDS ARE CONTROLLING PT'S PAIN WELL. NEW LEFT NEPHROSTOMY TUBE IS PATENT AND DRAINING WELL.
[2025-01-03 19:55] VITALS: BP 114/80
[2025-01-04 04:01] VITALS: BP 108/73
--- NOTE | 2025-01-04 04:16 | NUR ---
SHIFT SUMMARY PATIENT HAD NO ACUTE CHANGES. ALERT ORIENTED AND SBA TO BR. USES URINAL AT BEDSIDE. DENIES CHEST PAIN, SOB, AND N/V. VSS/AFEBRILE. PIV INTACT. IV ABX INFUSED. LEFT NEPHROSTOMY TUBE INTACT. REPORTED LEFT FLANK PAIN AND IV MORPHINE 5 MG GIVEN PER EMAR. NS INFUSING @ 100 mL/HR BAG TWO OF TWO. CALL LIGHT IN REACH. BED IN LOWEST POSITION. WILL CONTINUE TO MONITOR UNTIL DAY SHIFT NURSE ASSUMES CARE.
[2025-01-04 08:49] VITALS: BP 113/78
[2025-01-04] MEDS ORDERED: Vancomycin HCL 1,500 MG in NS 250 ML IV SCH (10:30)
--- NOTE | 2025-01-04 15:09 | NUR ---
PALLIATIVE CARE NOTE: MET WITH PT TODAY AT BEDSIDE. PT IS AWAKE AND ALERT AND ORIENTED. PT ABLE TO HAVE MEANINGFUL CONVERSATION. PT REPORTS HE IS CURRENTLY GOING THROUGH CHEMO TRREATMENT. HIS TREATMENT IS TOLERABLE CAUSING MILD NAUSEA FOR A COUPLE OF DAYS. HE TAKES ZOFRAN FOR HIS NAUSEA AND WILL DRINK ENSURES FOR EXTRA PROTEIN AFTER HIS CHEMO TREATMENTS. PT DENIES ANY OTHER SYMPTOMS. HE REPORTS DR. SONI, HIS ONCOLOGIST, HAS GIVEN HIM GOOD PROGNOSIS WITH CURRENT CHEMO TREATMENT AND HE WANTS TO CONTINUE CHEMO TREATMENTS LONG THEY ARE NEEDED. CURRENT SYMPTOMS: PT REPORTS HE HAS L FLANK BACK PAIN. PT REPORTS HE IS GETTING MORPHINE FOR HIS PAIN AND IT IS EFFECTIVE IN TREATING HIS PAIN. HE DENIES NAUSEA, CONSTIPATION, SOB.
[2025-01-04 15:41] VITALS: BP 111/76
[2025-01-04 16:53] LABS: BASOPHILS ABSOLUTE AUTO 0.01 K/mm3 (0.00-0.23); BASOPHILS PERCENT AUTO 0 % (0-2); EOSINOPHILS PERCENT AUTO 7 % (0-6); IMMATURE GRAN ABSOLUTE AUTO 0.04 K/mm3 (0.00-0.10); IMMATURE GRAN PERCENT AUTO 1 % (0-1); LYMPHOCYTES ABSOLUTE AUTO 0.71 K/mm3 (0.84-5.20); LYMPHOCYTES PERCENT AUTO 25 % (21-46); MONOCYTES ABSOLUTE AUTO 0.85 K/mm3 (0.16-1.47); MONOCYTES PERCENT AUTO 30 % (4-13); Mean Corpuscular HGB 24.2 pg (26.0-34.0); Mean Corpuscular HGB Conc 31.4 g/dL (31.5-36.5); Mean Corpuscular Volume 77 fL (80-100); NEUTROPHILS ABSOLUTE AUTO 1.04 K/mm3 (1.96-9.15); NEUTROPHILS PERCENT AUTO 37 % (41-73); Platelet Count 305 K/mm3 (150-400); RDW Coefficient Variation 17.9 % (11.7-14.2); RDW Standard Deviation 50.4 fL (35.1-46.3); Red Blood Cell Count 4.54 M/mm3 (4.30-5.90); White Blood Cell Count 2.85 K/mm3 (4.00-11.30)
[2025-01-04 17:27] LABS: Albumin, Blood 2.4 g/dL (3.4-5.0); Albumin/Globulin Ratio 0.6 (0.8-1.8); Bilirubin, Total 0.8 mg/dL (0.1-1.0); Bun/Creatinine Ratio 8.8 (12.0-20.0); Calcium, Blood 8.5 mg/dL (8.5-10.1); Creatinine, Blood 1.25 mg/dL (0.60-1.20); Globulin, Blood 3.7 g/dL (2.2-4.0); Potassium, Blood 3.7 mmol/L (3.5-5.5); Total Protein, Blood 6.1 g/dL (6.4-8.2)
[2025-01-04] MEDS ORDERED: Vancomycin HCL 1,000 MG in NS 250 ML IV SCH (18:00)
--- NOTE | 2025-01-04 18:30 | NUR ---
SHIFT SUMMARY NO ACUTE EVENTS DURING SHIFT. HE IS UP AD KATE IN ROOM TO BATHROOM. HE IS MEDICATED FOR PAIN PER EMAR WITH GOOD RELIEF. BED IN LOW POSITION, CALL LIGHT IN REACH. HE IS ABLE TO MAKE HIS NEEDS KNOWN.
[2025-01-04 19:20] VITALS: BP 115/72
[2025-01-04] MEDS ORDERED: Lactobacil 2-S.Thermo-Bifido 1 1 Cap PO SCH (21:00)
[2025-01-04] MEDS ORDERED: NS 250 ML IV PRN (23:35)
--- NOTE | 2025-01-05 04:03 | NUR ---
SHIFT SUMMARY PATIENT HAD NO ACUTE CHANGES. ALERT ORIENTED AND SBA WITH CANE. DENIES CHEST PAIN, SOB, AND N/V. VSS/AFEBRILE. PIV INTACT. IV ABXS INFUSED. LEFT NEPHROSTOMY TUBE INTACT. CALL LIGHT IN REACH. BED IN LOWEST POSITION. WILL CONTINUE TO MONITOR UNTIL DAY SHIFT NURSE ASSUMES CARE.
[2025-01-05 05:13] VITALS: BP 111/72
[2025-01-05 07:46] VITALS: BP 112/79
[2025-01-05 10:06] LABS: BASOPHILS ABSOLUTE AUTO 0.02 K/mm3 (0.00-0.23); BASOPHILS PERCENT AUTO 1 % (0-2); EOSINOPHILS ABSOLUTE AUTO 0.26 K/mm3 (0.00-0.68); EOSINOPHILS PERCENT AUTO 8 % (0-6); Hematocrit 35.2 % (37.0-53.0); Hemoglobin 10.8 g/dL (13.5-17.5); IMMATURE GRAN ABSOLUTE AUTO 0.06 K/mm3 (0.00-0.10); IMMATURE GRAN PERCENT AUTO 2 % (0-1); LYMPHOCYTES PERCENT AUTO 29 % (21-46); MONOCYTES ABSOLUTE AUTO 0.68 K/mm3 (0.16-1.47); MONOCYTES PERCENT AUTO 20 % (4-13); Mean Corpuscular HGB 23.6 pg (26.0-34.0); Mean Corpuscular HGB Conc 30.7 g/dL (31.5-36.5); Mean Corpuscular Volume 77 fL (80-100); Mean Platelet Volume 9.1 fL (9.1-12.4); NEUTROPHILS PERCENT AUTO 41 % (41-73); Platelet Count 319 K/mm3 (150-400); RDW Coefficient Variation 17.5 % (11.7-14.2); RDW Standard Deviation 49.1 fL (35.1-46.3); Red Blood Cell Count 4.58 M/mm3 (4.30-5.90); White Blood Cell Count 3.42 K/mm3 (4.00-11.30)
[2025-01-05 10:52] LABS: Alanine Aminotransfer (ALT/SGP 24 U/L (12-78); Albumin, Blood 2.4 g/dL (3.4-5.0); Albumin/Globulin Ratio 0.6 (0.8-1.8); Alk Phos 373 U/L (50-136); Anion Gap 9 mmol/L (3-11); Aspartate Aminotrans (AST/SGOT 23 U/L (12-37); Bilirubin, Total 0.5 mg/dL (0.1-1.0); Blood Urea Nitrogen 9 mg/dL (8-24); Bun/Creatinine Ratio 9.3 (12.0-20.0); CO2, Blood 26 mmol/L (21-32); Calcium, Blood 8.7 mg/dL (8.5-10.1); Chloride, Blood 103 mmol/L (98-108); Creatinine, Blood 0.97 mg/dL (0.60-1.20); Globulin, Blood 4.1 g/dL (2.2-4.0); Glomerular Filtration Rate 102 (60-); Glucose, Blood 108 mg/dL (70-99); Potassium, Blood 3.4 mmol/L (3.5-5.5); Sodium, Blood 135 mmol/L (136-145); Total Protein, Blood 6.5 g/dL (6.4-8.2); Vancomycin, Trough 26.9 ug/mL (5.0-10.0)
[2025-01-05] MEDS ORDERED: SULTRIDS PO (13:50)
--- NOTE | 2025-01-05 17:03 | NUR ---
DC SUMMARY PT DC THIS SHIFT AROUND 1610 HOME WITH HOME HEALTH. DC INSTRUCTION GONE OVER WITH PT WHOM STATED UNDERSTANDING. PT WAS ESCORTED OUT TO [facility] VIA WHEELCHAIR BY COMPLIANCE COUNSEL.
== END 2025-01-05 17:05 | disposition home health service (06) | DRG 698 ==
LOC: ER 14:49 → MEDS 01-03 00:59
PROVIDERS: Family Medicine; Physician Assistant; Student in an Organized Health Care Education/Training Program; ADMIT Student in an Organized Health Care Education/Training Program
PROC: 0T25X0Z Change Drainage Device in Kidney, External Approach (ICD-10-PCS; principal; 2025-01-03)
PROC: 3E03329 Introduction of Other Anti-infective into Peripheral Vein, Percutaneous Approach (ICD-10-PCS; 2025-01-03)
DX: N99.522 Malfunction of incontinent external stoma of urinary tract (principal); A41.02 Sepsis due to Methicillin resistant Staphylococcus aureus; C19 Malignant neoplasm of rectosigmoid junction; F84.0 Autistic disorder; N10 Acute pyelonephritis; T81.49XA Infection following a procedure, other surgical site, initial encounter; D70.9 Neutropenia, unspecified; E86.0 Dehydration; D64.9 Anemia, unspecified; F32.A Depression, unspecified; Z87.19 Personal history of other diseases of the digestive system; Z51.11 Encounter for antineoplastic chemotherapy; Z90.49 Acquired absence of other specified parts of digestive tract; Z79.891 Long term (current) use of opiate analgesic
CPT/HCPCS: 36415; 74177; 80053; 80202; 81001; 83605; 85025; 85610; 87040; 87077; 87086; 87147; 87186; 96361; 96365-59; 96375; 96376; 99152; 99153; 99285-25; A9270; C1729; C1769; J0692; J2250; J2270; J2405; J3010; J3370; J7030; J7050; Q9967

== ENCOUNTER 2025-01-26 22:17 | Emergency (ER) | payer OTHER ==
[~2025-01-26] VITALS: Ht 172.7 cm; Wt 72.6 kg
[~2025-01-26 22:17] MED LIST changes: +SULTRIDS PO
[2025-01-26] MEDS ORDERED: Ondansetron HCl 2 MG / ML 2ML Vial IV PRN (22:40)
[2025-01-26 23:09] LABS: BASOPHILS ABSOLUTE AUTO 0.08 K/mm3 (0.00-0.23); BASOPHILS PERCENT AUTO 1 % (0-2); EOSINOPHILS ABSOLUTE AUTO 1.24 K/mm3 (0.00-0.68); EOSINOPHILS PERCENT AUTO 15 % (0-6); Hematocrit 37.1 % (37.0-53.0); Hemoglobin 11.6 g/dL (13.5-17.5); IMMATURE GRAN ABSOLUTE AUTO 0.02 K/mm3 (0.00-0.10); IMMATURE GRAN PERCENT AUTO 0 % (0-1); LYMPHOCYTES ABSOLUTE AUTO 1.91 K/mm3 (0.84-5.20); LYMPHOCYTES PERCENT AUTO 23 % (21-46); MONOCYTES PERCENT AUTO 8 % (4-13); Mean Corpuscular HGB 24.2 pg (26.0-34.0); Mean Corpuscular HGB Conc 31.3 g/dL (31.5-36.5); Mean Corpuscular Volume 77 fL (80-100); Mean Platelet Volume 9.2 fL (9.1-12.4); NEUTROPHILS ABSOLUTE AUTO 4.47 K/mm3 (1.96-9.15); NEUTROPHILS PERCENT AUTO 53 % (41-73); Platelet Count 352 K/mm3 (150-400); RDW Coefficient Variation 19.1 % (11.7-14.2); RDW Standard Deviation 54.1 fL (35.1-46.3); White Blood Cell Count 8.42 K/mm3 (4.00-11.30)
[2025-01-26 23:25] LABS: International Normalized Ratio 0.95; Prothrombin Time Results 10.2 Sec (9.7-11.5)
[2025-01-26 23:31] LABS: Albumin, Blood 3.4 g/dL (3.4-5.0); Bilirubin, Total 0.5 mg/dL (0.1-1.0); Bun/Creatinine Ratio 25.7 (12.0-20.0); Creatinine, Blood 1.09 mg/dL (0.60-1.20); Globulin, Blood 3.5 g/dL (2.2-4.0); Potassium, Blood 3.4 mmol/L (3.5-5.5); Total Protein, Blood 6.9 g/dL (6.4-8.2)
[2025-01-27] MEDS ORDERED: Pantoprazole Sodium 40 MG Injection IV ONE (02:50)
[2025-01-27] MEDS ORDERED: Pantoprazole Sodium 40 MG in NS 50 ML IV SCH (02:50)
[2025-01-27 04:18] VITALS: BP 114/76
== END 2025-01-27 04:20 | disposition short-term general hospital (02) ==
LOC: ER 22:17
PROVIDERS: Student in an Organized Health Care Education/Training Program
DX: K92.1 Melena (principal); D64.9 Anemia, unspecified
CPT/HCPCS: 80053; 82272; 85025; 85610; 85730; 86850; 86900; 86901; 93005; 93010; 96374; 99285-25; J2470

== ENCOUNTER 2025-03-31 12:17 | Emergency (ER) | payer OTHER ==
[~2025-03-31] VITALS: Ht 172.7 cm; Wt 68.0 kg
[~2025-03-31 12:17] MED LIST changes: +VISBIOME 112.51 EACH PO
[2025-03-31 13:36] LABS: BASOPHILS ABSOLUTE AUTO 0.03 K/mm3 (0.00-0.23); BASOPHILS PERCENT AUTO 1 % (0-2); EOSINOPHILS ABSOLUTE AUTO 0.44 K/mm3 (0.00-0.68); EOSINOPHILS PERCENT AUTO 13 % (0-6); Hematocrit 34.9 % (37.0-53.0); Hemoglobin 10.7 g/dL (13.5-17.5); IMMATURE GRAN ABSOLUTE AUTO 0.02 K/mm3 (0.00-0.10); IMMATURE GRAN PERCENT AUTO 1 % (0-1); LYMPHOCYTES PERCENT AUTO 31 % (21-46); MONOCYTES ABSOLUTE AUTO 0.57 K/mm3 (0.16-1.47); MONOCYTES PERCENT AUTO 17 % (4-13); Mean Corpuscular HGB Conc 30.7 g/dL (31.5-36.5); Mean Corpuscular Volume 75 fL (80-100); Mean Platelet Volume 9.1 fL (9.1-12.4); NEUTROPHILS ABSOLUTE AUTO 1.22 K/mm3 (1.96-9.15); NEUTROPHILS PERCENT AUTO 37 % (41-73); Platelet Count 332 K/mm3 (150-400); RDW Coefficient Variation 20.1 % (11.7-14.2); RDW Standard Deviation 53.8 fL (35.1-46.3); Red Blood Cell Count 4.66 M/mm3 (4.30-5.90); White Blood Cell Count 3.28 K/mm3 (4.00-11.30)
[2025-03-31 14:13] LABS: Albumin, Blood 3.5 g/dL (3.4-5.0); Albumin/Globulin Ratio 0.9 (0.8-1.8); Bilirubin, Total 0.5 mg/dL (0.1-1.0); Bun/Creatinine Ratio 10.5 (12.0-20.0); Calcium, Blood 10.1 mg/dL (8.5-10.1); Creatinine, Blood 1.14 mg/dL (0.60-1.20); Globulin, Blood 3.7 g/dL (2.2-4.0); Potassium, Blood 3.5 mmol/L (3.5-5.5); Total Protein, Blood 7.2 g/dL (6.4-8.2)
[2025-03-31 16:00] LABS: Source, Urine Nephrostomy
[2025-03-31 16:13] LABS: Appearance, Urine Clear (Clear); Bilirubin, Urine Neg (Neg); Blood, Urine Neg (Neg); Color, Urine Yellow (P-Yellow); Glucose Qualitative, Urine Neg (Neg); Ketones, Urine Neg (Neg); Leukocyte Esterase, Urine Neg (Neg); Nitrite, Urine Neg (Neg); Protein, Urine 1+ (Neg); Specific Gravity, Urine 1.025 (1.003-1.022); Urobilinogen, Urine NORM (Normal)
[2025-03-31 19:05] VITALS: BP 113/79
== END 2025-03-31 19:05 | disposition home or self-care (01) ==
LOC: ER 12:17
PROVIDERS: Physician Assistant
DX: T83.84XA Pain due to genitourinary prosthetic devices, implants and grafts, initial encounter (principal); R10.9 Unspecified abdominal pain; C18.9 Malignant neoplasm of colon, unspecified; Z79.899 Other long term (current) drug therapy
CPT/HCPCS: 80053; 85025

== ENCOUNTER 2025-04-17 16:54 | Emergency (ER) | payer OTHER ==
[~2025-04-17] VITALS: Ht 172.7 cm; Wt 70.8 kg
[2025-04-17 17:12] VITALS: BP 128/89
[2025-04-17] MEDS ORDERED: CEPH500 PO (20:31)
== END 2025-04-17 20:42 | disposition home or self-care (01) ==
LOC: ER 16:54
DX: K94.22 Gastrostomy infection (principal); L03.311 Cellulitis of abdominal wall; C18.9 Malignant neoplasm of colon, unspecified; Z79.899 Other long term (current) drug therapy
CPT/HCPCS: 36415; 74177; 80053; 82378; 85025; 99283-25; Q9967

== ENCOUNTER 2025-08-19 | Observation (INO) | payer MEDICARE, OTHER ==
[~2025-08-19] VITALS: Ht 172.7 cm; Wt 77.0 kg
[~2025-08-19] MED LIST changes: +CEPH500 PO
[2025-08-19 00:25] LABS: BASOPHILS ABSOLUTE AUTO 0.00 K/mm3 (0.00-0.23); BASOPHILS PERCENT AUTO 0 % (0-2); EOSINOPHILS ABSOLUTE AUTO 0.03 K/mm3 (0.00-0.68); EOSINOPHILS PERCENT AUTO 1 % (0-6); Hematocrit 37.5 % (37.0-53.0); Hemoglobin 11.7 g/dL (13.5-17.5); IMMATURE GRAN ABSOLUTE AUTO 0.01 K/mm3 (0.00-0.10); IMMATURE GRAN PERCENT AUTO 1 % (0-1); LYMPHOCYTES ABSOLUTE AUTO 0.34 K/mm3 (0.84-5.20); LYMPHOCYTES PERCENT AUTO 16 % (21-46); MONOCYTES ABSOLUTE AUTO 0.30 K/mm3 (0.16-1.47); MONOCYTES PERCENT AUTO 14 % (4-13); Mean Corpuscular HGB Conc 31.2 g/dL (31.5-36.5); Mean Corpuscular Volume 76 fL (80-100); NEUTROPHILS ABSOLUTE AUTO 1.41 K/mm3 (1.96-9.15); NEUTROPHILS PERCENT AUTO 67 % (41-73); NRBC ABSOLUTE 0.00 K/mm3 (0.00-0.02); NRBC Auto 0.0 /100 WBC (0.0-0.2); Platelet Count 206 K/mm3 (150-400); RDW Coefficient Variation 21.4 % (11.7-14.2); RDW Standard Deviation 53.6 fL (35.1-46.3)
[2025-08-19 00:45] LABS: Alanine Aminotransfer (ALT/SGP 29.0 U/L (12-78); Albumin, Blood 3.5 g/dL (3.4-5.0); Albumin/Globulin Ratio 0.9 (0.8-1.8); Anion Gap 9.0 mmol/L (3-11); Aspartate Aminotrans (AST/SGOT 33.0 U/L (12-37); Bilirubin, Total 1.6 mg/dL (0.1-1.0); Blood Urea Nitrogen 11.0 mg/dL (8-24); CO2, Blood 25.0 mmol/L (21-32); Calcium, Blood 8.9 mg/dL (8.5-10.1); Chloride, Blood 106.0 mmol/L (98-108); Creatinine, Blood 1.38 mg/dL (0.60-1.20); Globulin, Blood 4.1 g/dL (2.2-4.0); Glucose, Blood 120.0 mg/dL (70-99); Potassium, Blood 3.7 mmol/L (3.5-5.5); Sodium, Blood 136.0 mmol/L (136-145); Total Protein, Blood 7.6 g/dL (6.4-8.2)
[2025-08-19 01:16] LABS: Influenza A, PCR NEGATIVE (NEGATIVE); Influenza B, PCR NEGATIVE (NEGATIVE); Resp Syncytial Virus, PCR NEGATIVE (NEGATIVE); SARS-Cov-2 (COVID-19) PCR, MMC NEGATIVE (NEGATIVE)
[2025-08-19 01:18] LABS: Source, Urine Clean Catch
[2025-08-19 01:22] LABS: Bilirubin, Urine Neg (Neg); Glucose Qualitative, Urine Neg (Neg); Ketones, Urine Neg (Neg); Leukocyte Esterase, Urine Neg (Neg); Protein, Urine 1+ (Neg); Specific Gravity, Urine 1.010 (1.003-1.022); Urobilinogen, Urine 2+ (Normal)
[2025-08-19 01:31] LABS: Color, Urine Yellow (P-Yellow)
[2025-08-19 01:33] LABS: Red Blood Cells, Urine 0-2 /hpf (0-2); White Blood Cells, Urine 0-2 /hpf (0-5)
[2025-08-19] MEDS ORDERED: CefTRIAXone Sodium 2,000 MG in NS 100 ML IV ONE (03:30)
[2025-08-19] MEDS ORDERED: FLU VACC TS2025-26(6MOS UP)/PF 45 MCG/0.5 ML SYRINGE IM SCH (04:00)
[2025-08-19 04:13] LABS: Automated CSF WBC Count 0.003 K/mm3 (0-5)
[2025-08-19 04:19] LABS: Automated CSF WBC Count 0.002 K/mm3 (0-5)
[2025-08-19] MEDS ORDERED: Vancomycin (Pharmacy Consult) IV SCH (04:45)
[2025-08-19 04:52] LABS: RBC Count, CSF 5 /mm3 (0-0); WBC Count, CSF 3 /mm3 (0-5)
[2025-08-19 05:07] LABS: RBC Count, CSF 1 /mm3 (0-0); WBC Count, CSF 2 /mm3 (0-5)
[2025-08-19 05:19] VITALS: BP 108/82
[2025-08-19] MEDS ORDERED: NS 250 ML IV PRN (05:20)
--- NOTE | 2025-08-19 05:30 | NUR ---
PT HERE VIA GURNEY FROM ER. PT TRANSFERRED TO MEDICAL FLOOR BED - PT REPORTS WEAKNESS. PT HAS A LEFT NEPHROSTOMY TUBE - DRAINING CLEAR YELLOW URINE. PT NO LONGER FEBRILE. PT HAS A BANDAID TO LOW BACK DUE TO LUMBAR PUNCTURE - NO DRAINAGE PRESENT. PT IS NPO. CALL LIGHT WITHIN REACH. BED IN LOW POSITION. BED ALARM ON FOR SAFETY. BELONGINGS WITHIN REACH.
[2025-08-19 05:46] LABS: BASOPHILS ABSOLUTE AUTO 0.01 K/mm3 (0.00-0.23); BASOPHILS PERCENT AUTO 0 % (0-2); EOSINOPHILS ABSOLUTE AUTO 0.02 K/mm3 (0.00-0.68); EOSINOPHILS PERCENT AUTO 1 % (0-6); Hematocrit 36.7 % (37.0-53.0); Hemoglobin 11.3 g/dL (13.5-17.5); IMMATURE GRAN ABSOLUTE AUTO 0.01 K/mm3 (0.00-0.10); IMMATURE GRAN PERCENT AUTO 0 % (0-1); LYMPHOCYTES ABSOLUTE AUTO 0.60 K/mm3 (0.84-5.20); LYMPHOCYTES PERCENT AUTO 22 % (21-46); MONOCYTES ABSOLUTE AUTO 0.39 K/mm3 (0.16-1.47); MONOCYTES PERCENT AUTO 14 % (4-13); Mean Corpuscular HGB Conc 30.8 g/dL (31.5-36.5); Mean Corpuscular Volume 75 fL (80-100); NEUTROPHILS ABSOLUTE AUTO 1.67 K/mm3 (1.96-9.15); NEUTROPHILS PERCENT AUTO 62 % (41-73); NRBC ABSOLUTE 0.00 K/mm3 (0.00-0.02); NRBC Auto 0.0 /100 WBC (0.0-0.2); Platelet Count 189 K/mm3 (150-400); RDW Coefficient Variation 21.3 % (11.7-14.2); RDW Standard Deviation 53.2 fL (35.1-46.3)
--- NOTE | 2025-08-19 05:55 | NUR ---
DR FARRELL IN ROOM, DISCUSSING RESULTS OF TESTING. PT IS REFUSING THE SCD'S. PT JUST UP TO BRP FOR LOOSE STOOL - PT AMBULATORY WITHOUT A CANE - STEADY ON HIS FEET. CALL LIGHT WITHIN REACH. IV INFUSING WITHOUT DIFFICULTY TO LEFT FA IV.
[2025-08-19 06:08] LABS: Alanine Aminotransfer (ALT/SGP 23.0 U/L (12-78); Albumin, Blood 3.0 g/dL (3.4-5.0); Albumin/Globulin Ratio 0.8 (0.8-1.8); Anion Gap 9.0 mmol/L (3-11); Aspartate Aminotrans (AST/SGOT 29.0 U/L (12-37); Bilirubin, Total 1.6 mg/dL (0.1-1.0); Blood Urea Nitrogen 10.0 mg/dL (8-24); CO2, Blood 24.0 mmol/L (21-32); Calcium, Blood 8.3 mg/dL (8.5-10.1); Chloride, Blood 107.0 mmol/L (98-108); Creatinine, Blood 1.31 mg/dL (0.60-1.20); Globulin, Blood 3.8 g/dL (2.2-4.0); Glucose, Blood 105.0 mg/dL (70-99); Potassium, Blood 3.6 mmol/L (3.5-5.5); Sodium, Blood 136.0 mmol/L (136-145); Total Protein, Blood 6.8 g/dL (6.4-8.2)
--- NOTE | 2025-08-19 06:16 | NUR ---
SHIFT SUMMARY - NO ACUTE CHANGES SINCE ADMIT THIS MORNING. WILL REPORT OFF TO ONCOMING SHIFT - SEE PREVIOUS NOTES TONIGHT. PT DENIES ANY PAIN THIS AM. PT IS ISOLATION FOR MERSA HISTORY, AND NEUTROPENIC PRECAUTIONS.
[2025-08-19] MEDS ORDERED: Dexamethasone Sod Phos 10 MG/ML 1ML VIAL IV SCH (07:00)
[2025-08-19 07:23] VITALS: BP 100/82
[2025-08-19] MEDS ORDERED: Cefepime HCl 2,000 MG in NS 100 ML IV SCH (08:00)
[2025-08-19 08:29] LABS: C-REACTIVE PROTEIN, EXT RANGE 7.06 mg/dL (0.000-0.300); Ferritin, Serum 83.0 ng/mL (26-388); Total Iron Binding Capacity 293.0 ug/dL (250-450)
[2025-08-19 12:22] LABS: Campylobacter Sp Not Detected (NOT DETECT); E. Coli O157 Not Detected (NOT DETECT); Enteroaggregative E. coli-EAEC Not Detected (NOT DETECT); Enteropathogenic E. coli-EPEC Not Detected (NOT DETECT); Enterotoxigenic E. coli-ETEC Not Detected (NOT DETECT); Salmonella Sp Not Detected (NOT DETECT); Shiga Toxin-prod E. coli-STEC Not Detected (NOT DETECT); Shigella/Enteroin E. coli-EIEC Not Detected (NOT DETECT); Vibrio Sp Not Detected (NOT DETECT)
--- NOTE | 2025-08-19 14:06 | NUR ---
7790 ATTEMPTED CONTACT WITH PATIENT'S BROTHER VIA PHONE CALL ABOUT PT'S MEDS. CALL WENT UNANSWERED: UNABLE TO LEAVE A VOICEMAIL MESSAGE THE MAILBOX WAS NOT SETUP.
[2025-08-19 15:13] VITALS: BP 114/75
[2025-08-19] MEDS ORDERED: Enoxaparin 40 MG/0.4 ML SYR SC SCH (17:00)
--- NOTE | 2025-08-19 17:58 | NUR ---
SHIFT SUMMARY PATIENT ALERT AND ORIENTED X4. PLEASANT AND COOPERATIVE DURING CARE. PATIENT MAKE NEEDS KNOWN. ULTRASOUND OF THE ABDOMEN DONE TODAY. PATIENT ON REGULAR DIET. ABLE TO AMBULATE TO THE BATHROOM. DENIES PAIN THROUGHOUT THE SHIFT. NO ACUTE CHANGES DURING THIS SHIFT AND VSS. SELF REPOSITION. BED LOCKED AND IN LOWEST POSITION, CALL LIGHT WITHIN REACH.
[2025-08-19 20:04] VITALS: BP 111/69
--- NOTE | 2025-08-20 03:20 | NUR ---
SHIFT SUMMARY PATIENT IS ALERT AND ORIENTED. PATIENT HAS HAD NO ACUTE EVENTS THIS SHIFT. VITAL SIGNS REVIEWED. PATIENT HAS HAD NO COMPLAINTS OF PAIN, NAUSEA, SOB OR VOMITTING THIS SHIFT. VITAL SIGNS REVIEWED. IV ABX INFUSED ORDERED. BED LOCKED AND LOWEST POSITION. CALL LIGHT IN PLACE.
[2025-08-20 04:22] VITALS: BP 113/76
--- NOTE | 2025-08-20 04:53 | NUR ---
SHIFT SUMMARY PATIENT ADMITTED FOR FEVER UNKNOWN CAUSE. ON NEUTROPENIC PRECAUTIONS DUE TO CHEMOTHERAPY. ASSUMED CARE [facility]SHIFT. ALERT AND ORIENTED X4. NO ACUTE OVERNIGHT EVENTS. TOLERATING MEDICATIONS. BED RAILS UP X2. BED IN LOWEST POSITION FOR SAFETY. CALL LIGHT WITHIN REACH.
[2025-08-20 05:25] LABS: BASOPHILS ABSOLUTE AUTO 0.01 K/mm3 (0.00-0.23); BASOPHILS PERCENT AUTO 1 % (0-2); EOSINOPHILS ABSOLUTE AUTO 0.09 K/mm3 (0.00-0.68); EOSINOPHILS PERCENT AUTO 5 % (0-6); Hematocrit 32.7 % (37.0-53.0); Hemoglobin 10.2 g/dL (13.5-17.5); IMMATURE GRAN ABSOLUTE AUTO 0.01 K/mm3 (0.00-0.10); IMMATURE GRAN PERCENT AUTO 1 % (0-1); LYMPHOCYTES ABSOLUTE AUTO 0.75 K/mm3 (0.84-5.20); LYMPHOCYTES PERCENT AUTO 38 % (21-46); MONOCYTES ABSOLUTE AUTO 0.33 K/mm3 (0.16-1.47); MONOCYTES PERCENT AUTO 17 % (4-13); Mean Corpuscular HGB Conc 31.2 g/dL (31.5-36.5); Mean Corpuscular Volume 76 fL (80-100); NEUTROPHILS ABSOLUTE AUTO 0.77 K/mm3 (1.96-9.15); NEUTROPHILS PERCENT AUTO 39 % (41-73); NRBC ABSOLUTE 0.00 K/mm3 (0.00-0.02); NRBC Auto 0.0 /100 WBC (0.0-0.2); Platelet Count 167 K/mm3 (150-400); RDW Coefficient Variation 20.8 % (11.7-14.2); RDW Standard Deviation 54.0 fL (35.1-46.3)
[2025-08-20 05:42] LABS: Alanine Aminotransfer (ALT/SGP 22.0 U/L (12-78); Albumin, Blood 2.7 g/dL (3.4-5.0); Albumin/Globulin Ratio 0.8 (0.8-1.8); Anion Gap 9.0 mmol/L (3-11); Aspartate Aminotrans (AST/SGOT 21.0 U/L (12-37); Bilirubin, Total 0.9 mg/dL (0.1-1.0); Blood Urea Nitrogen 11.0 mg/dL (8-24); CO2, Blood 22.0 mmol/L (21-32); Calcium, Blood 8.4 mg/dL (8.5-10.1); Chloride, Blood 108.0 mmol/L (98-108); Creatinine, Blood 1.12 mg/dL (0.60-1.20); Globulin, Blood 3.5 g/dL (2.2-4.0); Glucose, Blood 111.0 mg/dL (70-99); Potassium, Blood 3.9 mmol/L (3.5-5.5); Sodium, Blood 135.0 mmol/L (136-145); Total Protein, Blood 6.2 g/dL (6.4-8.2)
[2025-08-20 05:51] LABS: BAND PERCENT MAN 2 % (0-8); BASOPHILS ABSOLUTE MAN 0.00 K/mm3 (0.00-0.23); BASOPHILS PERCENT MAN 0 % (0-2); EOSINOPHILS ABSOLUTE MAN 0.00 K/mm3 (0.00-0.68); EOSINOPHILS PERCENT MAN 0 % (0-6); LYMPHOCYTES ABSOLUTE MAN 0.78 K/mm3 (0.84-5.20); LYMPHOCYTES PERCENT MAN 40 % (21-46); METAMYELOCYTE ABSOLUTE MAN 0.03 K/mm3 (0.00-0.00); METAMYELOCYTE PERCENT MAN 2 % (0-0); MONOCYTES ABSOLUTE MAN 0.11 K/mm3 (0.16-1.47); MONOCYTES PERCENT MAN 6 % (4-13); NEUTROPHILS ABSOLUTE MAN 1.01 K/mm3 (1.96-9.15); SEG NEUTROPHILS PERCENT MAN 50 % (41-73)
[2025-08-20] MEDS ORDERED: NS 1,000 ML IV SCH (07:00)
[2025-08-20 07:22] VITALS: BP 115/73
[2025-08-20] MEDS ORDERED: Medication Education, Discharge Education XX ONE (11:50)
[2025-08-20] MEDS ORDERED: VISBIOME 112.51 EACH PO (12:17)
--- NOTE | 2025-08-20 12:51 | NUR ---
DISCHARGE SUMMARY PATIENT DISCHARGE INSTRUCTIONS REVIEWED, MEDICATIONS REVIEWED. PATIENT STATED UNDERSTANDING OF DISCHARGE INSTRUCTIONS. RIDE HOME WITH [place] [employer], PATIENT LEFT WITH ALL HIS BELONGINGS AND IN A STABLE CONDITION.
== END 2025-08-20 12:56 | disposition home or self-care (01) ==
LOC: ER → MEDS 00:01 → ENPENDDIS 08-20 11:05 → MEDS 08-20 12:56
PROVIDERS: Family Medicine; Internal Medicine; Student in an Organized Health Care Education/Training Program; ADMIT Student in an Organized Health Care Education/Training Program
DX: R50.9 Fever, unspecified (principal); R74.8 Abnormal levels of other serum enzymes; D50.9 Iron deficiency anemia, unspecified; R65.10 Systemic inflammatory response syndrome (SIRS) of non-infectious origin without acute organ dysfunction; D63.8 Anemia in other chronic diseases classified elsewhere; E80.6 Other disorders of bilirubin metabolism; C18.9 Malignant neoplasm of colon, unspecified; C78.7 Secondary malignant neoplasm of liver and intrahepatic bile duct; Z93.6 Other artificial openings of urinary tract status; Z87.891 Personal history of nicotine dependence; Z90.49 Acquired absence of other specified parts of digestive tract
CPT/HCPCS: 36415; 62270; 70450; 71045; 76705; 80053; 81001; 82728; 82945; 83540; 83550; 83605; 84157; 85025; 85651; 86140; 87040; 87070; 87205; 87507; 87637; 89051; 93005; 93010; 96361-59; 96365; 96372; 96375; 96376; 99285-25; A9270; G0378; J0692; J0696; J1650; J3373; J7040; J7050; J7120

== ENCOUNTER 2025-09-26 22:34 | Inpatient (IN) | payer MEDICARE, OTHER ==
[~2025-09-26] VITALS: Ht 172.7 cm; Wt 53.9 kg
[2025-09-26] MEDS ORDERED: Ondansetron HCl 2 MG / ML 2ML Vial IV ONE (23:20)
[2025-09-26 23:37] LABS: BASOPHILS ABSOLUTE AUTO 0.02 K/mm3 (0.00-0.23); BASOPHILS PERCENT AUTO 0 % (0-2); EOSINOPHILS ABSOLUTE AUTO 0.00 K/mm3 (0.00-0.68); EOSINOPHILS PERCENT AUTO 0 % (0-6); Hematocrit 37.9 % (37.0-53.0); Hemoglobin 12.2 g/dL (13.5-17.5); IMMATURE GRAN ABSOLUTE AUTO 0.05 K/mm3 (0.00-0.10); IMMATURE GRAN PERCENT AUTO 1 % (0-1); LYMPHOCYTES ABSOLUTE AUTO 0.57 K/mm3 (0.84-5.20); LYMPHOCYTES PERCENT AUTO 6 % (21-46); MONOCYTES ABSOLUTE AUTO 0.86 K/mm3 (0.16-1.47); MONOCYTES PERCENT AUTO 9 % (4-13); Mean Corpuscular HGB Conc 32.2 g/dL (31.5-36.5); Mean Corpuscular Volume 77 fL (80-100); NEUTROPHILS ABSOLUTE AUTO 7.69 K/mm3 (1.96-9.15); NEUTROPHILS PERCENT AUTO 84 % (41-73); NRBC ABSOLUTE 0.00 K/mm3 (0.00-0.02); NRBC Auto 0.0 /100 WBC (0.0-0.2); Platelet Count 251 K/mm3 (150-400); RDW Coefficient Variation 21.1 % (11.7-14.2); RDW Standard Deviation 57.8 fL (35.1-46.3)
[2025-09-26 23:55] LABS: Alanine Aminotransfer (ALT/SGP 26.0 U/L (12-78); Albumin, Blood 2.8 g/dL (3.4-5.0); Albumin/Globulin Ratio 0.6 (0.8-1.8); Anion Gap 11.0 mmol/L (3-11); Aspartate Aminotrans (AST/SGOT 26.0 U/L (12-37); Bilirubin, Total 1.1 mg/dL (0.1-1.0); Blood Urea Nitrogen 9.0 mg/dL (8-24); CO2, Blood 21.0 mmol/L (21-32); Calcium, Blood 8.6 mg/dL (8.5-10.1); Chloride, Blood 104.0 mmol/L (98-108); Creatinine, Blood 1.09 mg/dL (0.60-1.20); Globulin, Blood 4.9 g/dL (2.2-4.0); Glucose, Blood 128.0 mg/dL (70-99); Magnesium, Blood 1.9 mg/dL (1.6-2.4); Potassium, Blood 4.1 mmol/L (3.5-5.5); Sodium, Blood 132.0 mmol/L (136-145); Total Protein, Blood 7.7 g/dL (6.4-8.2)
[2025-09-27 01:25] LABS: Source, Urine Clean Catch
[2025-09-27 01:29] LABS: Bilirubin, Urine Neg (Neg); Color, Urine Yellow (P-Yellow); Glucose Qualitative, Urine Neg (Neg); Ketones, Urine Neg (Neg); Leukocyte Esterase, Urine Neg (Neg); Protein, Urine 2+ (Neg); Specific Gravity, Urine 1.010 (1.003-1.022); Urobilinogen, Urine 1+ (Normal)
[2025-09-27 01:41] LABS: Red Blood Cells, Urine 0-2 /hpf (0-2); White Blood Cells, Urine 0-2 /hpf (0-5)
[2025-09-27] MEDS ORDERED: FLU VACC TS2025-26(6MOS UP)/PF 45 MCG/0.5 ML SYRINGE IM SCH (03:00)
[2025-09-27] MEDS ORDERED: Ketorolac Tromethamine 15mg Vial IV PRN (03:05)
[2025-09-27] MEDS ORDERED: Metoclopramide HCl 5MG / ML 2ML Vial IV PRN (03:05)
[2025-09-27] MEDS ORDERED: Ondansetron HCl 2 MG / ML 2ML Vial IV PRN (03:05)
[2025-09-27] MEDS ORDERED: LONSURF 20 MG-1 EAC1 PO (03:21)
[2025-09-27] MEDS ORDERED: Naloxone HCl 0.4MG / ML 1ML Vial IV PRN (03:30)
[2025-09-27] MEDS ORDERED: Morphine Sulfate 4 MG/1 ML Injection IV ONE (04:00)
[2025-09-27] MEDS ORDERED: Morphine Sulfate 4 MG/1 ML Injection IV PRN (04:00)
[2025-09-27 04:14] VITALS: BP 146/96
--- NOTE | 2025-09-27 04:44 | NUR ---
ADMIT NOTE HANDOFF GIVEN BY TRUCK SPOTTERSARITHA AYON TO FADIA GARZA. FULL CODE. PT ARRIVED TO FLOOR VIA WC. TELEMETRY: TACH @ 127 BPM. IV FLUIDS STARTED ORDERED. PAIN RX GIVEN. PT IS NPO. Q6 CBG'S WHILE NPO. PT IS ON RA. HE IS A&O X4, ABLE TO MAKE HIS NEEDS KNOWN. CALL BUTTON WITHIN REACH. PERSONAL POSSESSIONS WITH PT.
[2025-09-27] MEDS ORDERED: Enoxaparin 40 MG/0.4 ML SYR SC SCH (09:00)
[2025-09-27 09:04] VITALS: BP 121/83
[2025-09-27] MEDS ORDERED: Misc. Tablet PO SCH (12:20)
[2025-09-27 14:31] VITALS: BP 131/89
--- NOTE | 2025-09-27 18:08 | NUR ---
SHIFT SUMMARY PATIENT ALERT AND INTERACTIVE. PATIENT INDEPENDENT IN THE ROOM. L NEPHROSTOMY SITE PICTURED AND DRESSING CHANGED. PATIENT REPORTS THAT HE HAS HAD THE DRAIN SINCE MAY/. PATIENT STATES BAG IS THE ORIGINAL BAG. PROVIDED EDUCATION RELATED TO NEPHROSTOMY CARE. NEW BAG PLACED ON TUBING. PATIENT AND BROTHER ENCOURAGED TO FOLLOW UP WITH PROVIDER THAT PLACED TUBE. DR JUSTICE NOTIFIED OF REDNESS, ODOR, AND INFLAMATION AT SITE. PATIENT INCONSISTANT ABOUT PAIN AND PAIN CONTROL.
[2025-09-27 19:18] VITALS: BP 138/88
--- NOTE | 2025-09-27 21:20 | NUR ---
CALLED HOSPITALIST PATIENT INFORMS ME THAT HIS HOME DOSE OF HIS CHEMO DRUG LONSURF IS 3 TABLETS BID, WEDNESDAY THROUGH WEDNESDAY (ON THE WEEK HE TAKES THEM). THIS WAS PREVIOUSLY ENTERED INCORRECTLY IN THE MED REC. IT HAS BEEN CORRECTED AND UPDATED NOW.
[2025-09-27 23:37] VITALS: BP 127/78
[2025-09-28 03:36] VITALS: BP 128/79
--- NOTE | 2025-09-28 04:28 | NUR ---
END OF SHIFT SUMMARY: AxOX4. ADMITTED FOR ABDOMINAL PAIN. FULL CODE. REGULAR DIET PREFERS SOFTER FOODS. 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 ABDOMINAL WALL AND LUNG. PATIENT IS ABLE TO MAKE NEEDS KNOWN. PATIENT CAN ADVOCATE FOR NEEDS. PATIENT IS INDEPENDENT IN THE ROOM. CONTINENT OF BOWEL AND BLADDER. TAKES MEDS WHOLE WITH FLUIDS. PATIENT HAS A NEPHROSTOMY. PATIENT IS ON TELE SINUS TACH @ 105 BPM. BED IN LOWEST POSITION. CALL LIGHT WITHIN REACH AND PATIENT HAS BEEN EDUCATED ON HOW TO USE. REPORT TO ONCOMING NURSE.
[2025-09-28 06:11] LABS: BASOPHILS ABSOLUTE AUTO 0.02 K/mm3 (0.00-0.23); BASOPHILS PERCENT AUTO 0 % (0-2); EOSINOPHILS ABSOLUTE AUTO 0.01 K/mm3 (0.00-0.68); EOSINOPHILS PERCENT AUTO 0 % (0-6); Hematocrit 35.8 % (37.0-53.0); Hemoglobin 11.3 g/dL (13.5-17.5); IMMATURE GRAN ABSOLUTE AUTO 0.05 K/mm3 (0.00-0.10); IMMATURE GRAN PERCENT AUTO 1 % (0-1); LYMPHOCYTES ABSOLUTE AUTO 0.57 K/mm3 (0.84-5.20); LYMPHOCYTES PERCENT AUTO 6 % (21-46); MONOCYTES ABSOLUTE AUTO 0.60 K/mm3 (0.16-1.47); MONOCYTES PERCENT AUTO 7 % (4-13); Mean Corpuscular HGB Conc 31.6 g/dL (31.5-36.5); Mean Corpuscular Volume 78 fL (80-100); NEUTROPHILS ABSOLUTE AUTO 7.92 K/mm3 (1.96-9.15); NEUTROPHILS PERCENT AUTO 87 % (41-73); NRBC ABSOLUTE 0.00 K/mm3 (0.00-0.02); NRBC Auto 0.0 /100 WBC (0.0-0.2); Platelet Count 178 K/mm3 (150-400); RDW Coefficient Variation 21.3 % (11.7-14.2); RDW Standard Deviation 59.0 fL (35.1-46.3)
[2025-09-28 06:31] LABS: Anion Gap 10.0 mmol/L (3-11); Blood Urea Nitrogen 8.0 mg/dL (8-24); CO2, Blood 23.0 mmol/L (21-32); Calcium, Blood 8.6 mg/dL (8.5-10.1); Chloride, Blood 102.0 mmol/L (98-108); Creatinine, Blood 1.17 mg/dL (0.60-1.20); Glucose, Blood 101.0 mg/dL (70-99); Potassium, Blood 4.3 mmol/L (3.5-5.5); Sodium, Blood 131.0 mmol/L (136-145)
[2025-09-28 07:08] VITALS: BP 113/73
[2025-09-28] MEDS ORDERED: CefTRIAXone Sodium 2,000 MG in NS 100 ML IV SCH (07:52)
[2025-09-28] MEDS ORDERED: NS 250 ML IV PRN (08:00)
[2025-09-28 11:36] VITALS: BP 116/72
[2025-09-28] MEDS ORDERED: Vancomycin (Pharmacy Consult) IV SCH (12:00)
[2025-09-28 15:22] VITALS: BP 119/80
--- NOTE | 2025-09-28 16:26 | NUR ---
PT IS A/OX4. PLEASANT AND COOPERATIVE WITH CARE. INDEPENDENT IN ROOM. HE HAS A LEFT SIDE NEPHROSTOMY BAG THAT HE EMPTIES INDEPENDETLY. PT STARTED ON FLUIDS AND ABX PER EMAR. PT IS CURRENTLY RESTING IN BED, BED IS IN THE LOWEST POSTION AND CALL LIGHT IS IN REACH. CHEST RISE AND FALL IS SYMMETRICAL. NO ACUTE NEEDS AT THIS TIME.
[2025-09-28 19:38] VITALS: BP 128/86
[2025-09-28] MEDS ORDERED: Lactobacil 2-S.Thermo-Bifido 1 1 Cap PO SCH (21:00)
[2025-09-29] VITALS (8 sets, daily range): BP systolic 116–125; BP diastolic 80–87
--- NOTE | 2025-09-29 05:15 | NUR ---
END OF SHIFT SUMMARY: AxOX4. ADMITTED FOR ABDOMINAL PAIN. FULL CODE. REGULAR DIET PREFERS SOFTER FOODS. 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 PATIENT IS ABLE TO MAKE NEEDS KNOWN. PATIENT CAN ADVOCATE FOR NEEDS. PATIENT IS INDEPENDENT IN THE ROOM. CONTINENT OF BOWEL AND BLADDER. TAKES MEDS WHOLE WITH FLUIDS. PATIENT HAS A NEPHROSTOMY WITH POSSIBLE CELLULITIS TO THE SITE AND IS RECEIVING IV ANTIBIOTICS. PATIENT IS ON TELE SINUS TACH @ 124 BPM. PATIENT DOES START TO THINK ABOUT THINGS HE SAYS AND HIS HEART RATE INCREASES. BED IN LOWEST POSITION. CALL LIGHT WITHIN REACH AND PATIENT HAS BEEN EDUCATED ON HOW TO USE. WILL REPORT TO ONCOMING NURSE.
[2025-09-29 06:31] LABS: BASOPHILS ABSOLUTE AUTO 0.01 K/mm3 (0.00-0.23); BASOPHILS PERCENT AUTO 0 % (0-2); EOSINOPHILS ABSOLUTE AUTO 0.02 K/mm3 (0.00-0.68); EOSINOPHILS PERCENT AUTO 0 % (0-6); Hematocrit 34.0 % (37.0-53.0); Hemoglobin 10.7 g/dL (13.5-17.5); IMMATURE GRAN ABSOLUTE AUTO 0.04 K/mm3 (0.00-0.10); IMMATURE GRAN PERCENT AUTO 1 % (0-1); LYMPHOCYTES ABSOLUTE AUTO 0.76 K/mm3 (0.84-5.20); LYMPHOCYTES PERCENT AUTO 12 % (21-46); MONOCYTES ABSOLUTE AUTO 0.40 K/mm3 (0.16-1.47); MONOCYTES PERCENT AUTO 6 % (4-13); Mean Corpuscular HGB Conc 31.5 g/dL (31.5-36.5); Mean Corpuscular Volume 78 fL (80-100); NEUTROPHILS ABSOLUTE AUTO 5.23 K/mm3 (1.96-9.15); NEUTROPHILS PERCENT AUTO 81 % (41-73); NRBC ABSOLUTE 0.00 K/mm3 (0.00-0.02); NRBC Auto 0.0 /100 WBC (0.0-0.2); Platelet Count 212 K/mm3 (150-400); RDW Coefficient Variation 21.2 % (11.7-14.2); RDW Standard Deviation 59.8 fL (35.1-46.3)
[2025-09-29 07:00] LABS: Anion Gap 9.0 mmol/L (3-11); Blood Urea Nitrogen 12.0 mg/dL (8-24); CO2, Blood 23.0 mmol/L (21-32); Calcium, Blood 8.7 mg/dL (8.5-10.1); Chloride, Blood 105.0 mmol/L (98-108); Creatinine, Blood 1.16 mg/dL (0.60-1.20); Glucose, Blood 98.0 mg/dL (70-99); Potassium, Blood 3.8 mmol/L (3.5-5.5); Sodium, Blood 133.0 mmol/L (136-145)
--- NOTE | 2025-09-29 16:48 | NUR ---
PT A/OX4. PLEASANT AND COOPERATIVE WITH CARE. INDEPENDENT IN THE ROOM. USES A CANE WHEN AMBULATING. PT TOOK A SHOWER THIS SHIFT AND AMBULATED THE HALLS WITH ENCOURAGEMENT FROM STAFF. PT IS NOW IN BED, BED IS IN LOWEST POSITION AND CALL LIGHT IS IN REACH. NO ACUTE NEEDS AT THIS TIME.
[2025-09-29 21:28] LABS: Vancomycin, Trough 13.3 ug/mL (5.0-10.0)
[2025-09-30 03:55] VITALS: BP 120/77
--- NOTE | 2025-09-30 04:10 | NUR ---
NO ACUTE CHANGES DURING SHIFT. PATIENT A&O X4, ABLE TO MAKE NEEDS KNOWN. PATIENT STATES HE HAD 1 BOWEL MOVEMENT DURING SHIFT. PATIENT ON ROOM AIR. UP TO BATHROOM INDEPEDENTLY. NEPHROSTOMY TUBE IN PLACE-DRAINING TO GRAVITY. NO COMPLAINTS OF PAIN. PATIENT RECEIVED IV ANTIBIOTICS. PATIENT AMBULATED IN DAUGHERTY. BED IN LOW POSITION WITH WHEELS LOCKED. CALL LIGHT WITHIN REACH
[2025-09-30 05:40] LABS: BASOPHILS ABSOLUTE AUTO 0.02 K/mm3 (0.00-0.23); BASOPHILS PERCENT AUTO 0 % (0-2); EOSINOPHILS ABSOLUTE AUTO 0.05 K/mm3 (0.00-0.68); EOSINOPHILS PERCENT AUTO 1 % (0-6); Hematocrit 33.5 % (37.0-53.0); Hemoglobin 10.6 g/dL (13.5-17.5); IMMATURE GRAN ABSOLUTE AUTO 0.03 K/mm3 (0.00-0.10); IMMATURE GRAN PERCENT AUTO 1 % (0-1); LYMPHOCYTES ABSOLUTE AUTO 0.75 K/mm3 (0.84-5.20); LYMPHOCYTES PERCENT AUTO 16 % (21-46); MONOCYTES ABSOLUTE AUTO 0.26 K/mm3 (0.16-1.47); MONOCYTES PERCENT AUTO 5 % (4-13); Mean Corpuscular HGB Conc 31.6 g/dL (31.5-36.5); Mean Corpuscular Volume 78 fL (80-100); NEUTROPHILS ABSOLUTE AUTO 3.67 K/mm3 (1.96-9.15); NEUTROPHILS PERCENT AUTO 77 % (41-73); NRBC ABSOLUTE 0.00 K/mm3 (0.00-0.02); NRBC Auto 0.0 /100 WBC (0.0-0.2); Platelet Count 193 K/mm3 (150-400); RDW Coefficient Variation 21.6 % (11.7-14.2); RDW Standard Deviation 59.6 fL (35.1-46.3)
[2025-09-30 06:08] LABS: Alanine Aminotransfer (ALT/SGP 36.0 U/L (12-78); Albumin, Blood 2.7 g/dL (3.4-5.0); Albumin/Globulin Ratio 0.6 (0.8-1.8); Anion Gap 9.0 mmol/L (3-11); Aspartate Aminotrans (AST/SGOT 35.0 U/L (12-37); Bilirubin, Total 0.6 mg/dL (0.1-1.0); Blood Urea Nitrogen 15.0 mg/dL (8-24); CO2, Blood 23.0 mmol/L (21-32); Calcium, Blood 9.0 mg/dL (8.5-10.1); Chloride, Blood 104.0 mmol/L (98-108); Creatinine, Blood 1.07 mg/dL (0.60-1.20); Globulin, Blood 4.6 g/dL (2.2-4.0); Glucose, Blood 93.0 mg/dL (70-99); Potassium, Blood 4.0 mmol/L (3.5-5.5); Sodium, Blood 132.0 mmol/L (136-145); Total Protein, Blood 7.3 g/dL (6.4-8.2)
[2025-09-30 07:42] VITALS: BP 115/78
[2025-09-30] MEDS ORDERED: CEFTRIAXONE2 G1 IV (10:21)
[2025-09-30 11:36] VITALS: BP 105/72
[2025-09-30] MEDS ORDERED: VISBIOME 112.51 EACH PO (13:55)
[2025-09-30] MEDS ORDERED: DOCU100 PO (13:55)
[2025-09-30] MEDS ORDERED: SULFAMETHOXAZO1 EAC1 PO (13:56)
[2025-09-30] MEDS ORDERED: MUPIROCIN15 GM TOP (13:56)
[2025-09-30 15:09] VITALS: BP 116/84
--- NOTE | 2025-09-30 16:19 | NUR ---
PT DISCHARGED HOME TODAY VIA [facility]. PT WAS ESCORTED OUT OF THE HOSPITAL BY STAFF. DISCHARGE INSTRUCTIONS ON NEW MEDICATIONS, FOLLOW UP APPOINTMENTS, AND NEPHROSTOMY DRESSING CHANGES WERE VERBALIZED TO THE PATIENT BY THIS RN. PT VERBALIZED UNDERSTANDING. PT WAS DISCHARGED HOME WITH [facility].
== END 2025-09-30 16:09 | disposition home or self-care (01) | DRG 872 ==
LOC: ER 22:34 → MEDS 09-27 03:15 → ERHOLD 09-27 03:15 → MEDS 09-27 04:10
PROVIDERS: Student in an Organized Health Care Education/Training Program; ADMIT Student in an Organized Health Care Education/Training Program
DX: A41.9 Sepsis, unspecified organism (principal); K56.7 Ileus, unspecified; C19 Malignant neoplasm of rectosigmoid junction; E87.1 Hypo-osmolality and hyponatremia; F84.0 Autistic disorder; T83.512A Infection and inflammatory reaction due to nephrostomy catheter, initial encounter; K59.00 Constipation, unspecified; N13.5 Crossing vessel and stricture of ureter without hydronephrosis; F32.A Depression, unspecified; D70.1 Agranulocytosis secondary to cancer chemotherapy; T45.1X5A Adverse effect of antineoplastic and immunosuppressive drugs, initial encounter; R50.81 Fever presenting with conditions classified elsewhere; K52.9 Noninfective gastroenteritis and colitis, unspecified; Z87.19 Personal history of other diseases of the digestive system; Z23 Encounter for immunization; Z90.49 Acquired absence of other specified parts of digestive tract; Z79.899 Other long term (current) drug therapy; Z86.14 Personal history of Methicillin resistant Staphylococcus aureus infection
CPT/HCPCS: 36415; 71046; 74177; 80048; 80053; 80202; 81001; 82947; 83605; 83690; 83735; 85025; 96361; 96365; 96366; 96367; 96374-59; 96375; 96375-59; 96376; 99285-25; A9270; G0378; J0696; J2270; J2405; J2765; J3373; J7050; J7120; Q9967

== ENCOUNTER 2025-10-08 21:28 | Emergency (ER) | payer MEDICARE, OTHER ==
[~2025-10-08] VITALS: Ht 172.7 cm; Wt 77.1 kg
[~2025-10-08 21:28] MED LIST changes: +CEFTRIAXONE2 G1 IV; +DOCU100 PO; +LONSURF 20 MG-1 EAC1 PO; +MUPIROCIN15 GM TOP; +SULFAMETHOXAZO1 EAC1 PO
[2025-10-08 21:32] VITALS: BP 127/90
[2025-10-08 22:33] LABS: BASOPHILS ABSOLUTE AUTO 0.01 K/mm3 (0.00-0.23); BASOPHILS PERCENT AUTO 0 % (0-2); EOSINOPHILS ABSOLUTE AUTO 0.09 K/mm3 (0.00-0.68); EOSINOPHILS PERCENT AUTO 4 % (0-6); Hematocrit 33.9 % (37.0-53.0); Hemoglobin 10.7 g/dL (13.5-17.5); IMMATURE GRAN ABSOLUTE AUTO 0.02 K/mm3 (0.00-0.10); IMMATURE GRAN PERCENT AUTO 1 % (0-1); LYMPHOCYTES ABSOLUTE AUTO 0.88 K/mm3 (0.84-5.20); LYMPHOCYTES PERCENT AUTO 37 % (21-46); MONOCYTES ABSOLUTE AUTO 0.14 K/mm3 (0.16-1.47); MONOCYTES PERCENT AUTO 6 % (4-13); Mean Corpuscular HGB Conc 31.6 g/dL (31.5-36.5); Mean Corpuscular Volume 79 fL (80-100); NEUTROPHILS ABSOLUTE AUTO 1.24 K/mm3 (1.96-9.15); NEUTROPHILS PERCENT AUTO 52 % (41-73); NRBC ABSOLUTE 0.00 K/mm3 (0.00-0.02); NRBC Auto 0.0 /100 WBC (0.0-0.2); Platelet Count 278 K/mm3 (150-400); RDW Coefficient Variation 21.4 % (11.7-14.2); RDW Standard Deviation 57.6 fL (35.1-46.3)
[2025-10-08 22:54] LABS: Alanine Aminotransfer (ALT/SGP 40.0 U/L (12-78); Albumin, Blood 3.5 g/dL (3.4-5.0); Albumin/Globulin Ratio 0.9 (0.8-1.8); Anion Gap 10.0 mmol/L (3-11); Aspartate Aminotrans (AST/SGOT 41.0 U/L (12-37); Bilirubin, Total 1.0 mg/dL (0.1-1.0); Blood Urea Nitrogen 15.0 mg/dL (8-24); CO2, Blood 23.0 mmol/L (21-32); Calcium, Blood 9.2 mg/dL (8.5-10.1); Chloride, Blood 104.0 mmol/L (98-108); Creatinine, Blood 1.22 mg/dL (0.60-1.20); Globulin, Blood 4.1 g/dL (2.2-4.0); Glucose, Blood 101.0 mg/dL (70-99); Potassium, Blood 4.1 mmol/L (3.5-5.5); Sodium, Blood 133.0 mmol/L (136-145); Total Protein, Blood 7.6 g/dL (6.4-8.2)
[2025-10-09 00:29] LABS: Prothrombin Time Results 11.0 Sec (9.7-11.5)
[2025-10-09 03:01] LABS: Source, Urine Clean Catch
[2025-10-09 03:03] LABS: Bilirubin, Urine Neg (Neg); Glucose Qualitative, Urine Neg (Neg); Ketones, Urine Neg (Neg); Leukocyte Esterase, Urine 1+ (Neg); Protein, Urine 3+ (Neg); Specific Gravity, Urine 1.010 (1.003-1.022); Urobilinogen, Urine 1+ (Normal)
[2025-10-09 03:04] LABS: Color, Urine Yellow (P-Yellow)
[2025-10-09 03:09] LABS: Red Blood Cells, Urine TNTC /hpf (0-2)
== END 2025-10-09 03:39 | disposition home or self-care (01) ==
LOC: ER 21:28
PROVIDERS: Student in an Organized Health Care Education/Training Program
DX: R31.9 Hematuria, unspecified (principal); Z79.899 Other long term (current) drug therapy
CPT/HCPCS: 74177; 80053; 81001; 85025; 85610; 85730; 86850; 86900; 86901; 99284-25; Q9967